=== PATIENT | female | born 1935 | race Caucasian/White ===

== ENCOUNTER → 2016-08-23 | Outpatient (CLI) | payer MEDICARE, OTHER ==
[2016-08-24 08:08] LABS: PROTHROMBIN TIME 45.6 SEC (11.4-15.4)
== END ==
LOC: OD 07:10
PROVIDERS: ATTEND Surgery Vascular Surgery
DX: I48.91 Unspecified atrial fibrillation (principal); Z79.01 Long term (current) use of anticoagulants
CPT/HCPCS: 36415; 85610

== ENCOUNTER 2016-08-26 00:02 | Emergency (ER) | payer MEDICARE, OTHER ==
--- NOTE | 2016-08-26 00:08 | ER Document Report ---
ED ENT - General Stated Complaint: NOSE BLEED Time seen by provider: 00:07 Mode of Arrival: Medic Information source: Patient, Emergency Med Personnel TRAVEL OUTSIDE OF THE [place] IN LAST 30 DAYS: No - HPI Patient complains to provider of: Nose problem Onset: Just prior to arrival Onset/Duration: Sudden Associated symptoms: Nose bleed Similar symptoms previously: No Recently seen / treated by doctor: Yes Notes: Patient is an 81-year-old female who was brought to the emergency room by EMS for complaints of nosebleed that started shortly prior to arrival, patient recently had a mechanical mitral valve replacement at [facility] on 2016, since then she has been on Coumadin 2 mg each evening, this is a new medication for her, she denies any trauma or pain, she does report difficulty breathing since the nosebleed started and she is coughing up a significant amount of blood from her posterior pharynx - Related Data Allergies/Adverse Reactions: No Known Allergies Allergy (Verified 08/26/16 00:34) Past Medical History - General Information source: Patient, Relative - Social History Smoking Status: Never Smoker Family History: Reviewed & Not Pertinent - Past Medical History Cardiac Medical History: Denies: Hx Heart Attack, Hx Hypertension Pulmonary Medical History: Denies: Hx Asthma Neurological Medical History: Denies: Hx Cerebrovascular Accident, Hx Seizures GI Medical History: Denies: Hx Hepatitis, Hx Hiatal Hernia, Hx Ulcer Infectious Medical History: Denies: Hx Hepatitis Past Surgical History: Reports: Hx Hysterectomy. Denies: Hx Mastectomy, Hx Open Heart Surgery, Hx Pacemaker Review of Systems - Review of Systems Constitutional: No symptoms reported EENT: See HPI Cardiovascular: No symptoms reported Respiratory: Short of breath Gastrointestinal: No symptoms reported Genitourinary: No symptoms reported Female Genitourinary: No symptoms reported Musculoskeletal: No symptoms reported Skin: No symptoms reported Hematologic/Lymphatic: No symptoms reported Neurological/Psychological: No symptoms reported -: Yes All other systems reviewed and negative Physical Exam - Vital signs Vitals: Pulse Ox 95 08/26/16 00:06 Interpretation: Normal - General General appearance: Alert In distress: None - HEENT Head: Normocephalic, Atraumatic Eyes: Normal Conjunctiva: Normal Extraocular movements intact: Yes Eyelashes: Normal Pupils: PERRL Nasal: Bloody discharge - Right nare, Epistaxis Mouth/Lips: Normal Mucous membranes: Normal Pharynx: Blood in hypopharynx Neck: Normal - Respiratory Respiratory status: No respiratory distress Chest status: Tender - [place] in place in right anterior chest wall with mild ecchymosis to surrounding area Breath sounds: Normal Chest palpation: Normal - Cardiovascular Rhythm: Regular, Tachycardia Murmur: No Notes: Mechanical valve click audible on auscultation - Abdominal Inspection: Normal Distension: No distension Bowel sounds: Normal Tenderness: Nontender Organomegaly: No organomegaly - Back Back: Normal, Nontender - Extremities General upper extremity: Normal inspection, Nontender, Normal color, Normal ROM , Normal temperature General lower extremity: Normal inspection, Nontender, Normal color, Normal ROM , Normal temperature. No: John's sign - Neurological Neuro grossly intact: Yes Cognition: Normal Orientation: AAOx4 [place] Coma Scale Eye Opening: Spontaneous [place] Coma Scale Verbal: Oriented [place] Coma Scale Motor: Obeys Commands Bala Coma Scale Total: 15 Speech: Normal Motor strength normal: LUE, RUE, LLE, RLE Sensory: Normal - Psychological Associated symptoms: Normal affect, Normal mood - Skin Skin Temperature: Warm Skin Moisture: Dry Skin Color: Normal Course - Re-evaluation Re-evalutation: 08/26/16 01:15 Patient was discussed with cardiothoracic surgeon at [facility], Dr. Santos , who recommends patient hold her Coumadin tomorrow, Sunday, take 1 mg on Sunday and have her INR rechecked on Sunday, from there on out she should alternate 1 mg and 2 mg doses each day, and less INR on Sunday dictates otherwise, patient should follow-up with her local psychometrician, Dr. Anderson on Sunday for further recommendations regarding the INR, I also discussed patient' s family member concern regarding the metoprolol dosing, Dr. Santos recommends patient continue taking the metoprolol once a day as directed on the prescription bottle 08/26/16 04:02 Patient did have a period of slight rebleeding from the right nostril, with blood in the posterior pharynx, the initial Merocel packing was removed and to Merocel packing pads were placed in the right nare, FFP was ordered at this point as well, patient remains slightly hypotensive, otherwise she appears to be doing quite well 08/26/16 04:41 Patient is resting comfortably, bleeding seems to have subsided at this point, she will receive 1 unit of FFP and likely be discharged home after that to follow-up with her psychometrician and primary care provider, this plan was discussed with her daughter who is in agreement - Vital Signs Vital signs: Temp Pulse Resp BP Pulse Ox 18 115/50 L 95 08/26/16 00:34 08/26/16 02:51 08/26/16 02:51 - Laboratory Result Diagrams: 08/26/16 00:06 08/26/16 00:06 Laboratory results interpreted by me: 08/26/16 08/26/16 08/26/16 00:06 00:06 00:06 WBC 16.0 H Hgb 11.7 L Hct 34.4 L RDW 15.5 H Plt Count 501 H Absolute Neutrophils 10.4 H Absolute Monocytes 1.8 H PT 45.9 H APTT 69.3 H Potassium 5.1 H BUN 44 H Creatinine 1.69 H Est GFR ( Amer) 35 L Est GFR (Non-Af Amer) 29 L Glucose 142 H Creatine Kinase 28 L Total Protein 6.0 L - Diagnostic Test Radiology reviewed: Image reviewed, Reports reviewed - EKG Interpretation by Me EKG shows normal: Sinus rhythm Rate: Tachycardia Discharge - Discharge Clinical Impression: Epistaxis, Supratherapeutic INR Condition: Stable Disposition: HOME, SELF-CARE Instructions: Nosebleed Instructions ([facility]), Coumadin (warfarin) ([facility]) Additional Instructions: Hold your warfarin dose on Sunday. On Sunday take 1 mg of warfarin. On Sunday have repeat blood work to check your warfarin levels and follow up with your psychometrician. Nasal packing should be removed in 2-3 days. You can follow -up with an circular shear operator for this, your primary care provider , or return to the emergency room. Return to the emergency room immediately if symptoms worsen or any additional concerns. Forms: Follow-Up Laboratory Testing
[2016-08-26] MEDS ORDERED: ONDANSETRON HCL INJ/PF 4 MG/2 ML SDV IV ONE (00:14)
[2016-08-26] MEDS ORDERED: NORMAL SALINE 1000 ML 500 ML IV PRN (00:15)
[2016-08-26] MEDS ORDERED: ONDANSETRON HCL INJ/PF 4 MG/2 ML SDV ONE (00:16)
[2016-08-26 00:29] LABS: ABSOLUTE BASOPHILS # (AUTO) 0.2 10^3/uL (0.0-0.2); ABSOLUTE EOSINOPHILS # (AUTO) 0.6 10^3/uL (0.0-0.6); ABSOLUTE LYMPHOCYTES (AUTO) 3.2 10^3/uL (0.5-4.7); ABSOLUTE MONOCYTES (AUTO) 1.8 10^3/uL (0.1-1.4); ABSOLUTE NEUT (AUTO) 10.4 10^3/uL (1.7-8.2); BASOPHILS % (AUTO) 0.9 % (0-2); EOSINOPHILS % (AUTO) 3.6 % (0-6); HEMATOCRIT 34.4 % (36.0-47.0); HEMOGLOBIN 11.7 g/dL (12.0-15.5); HGB HCT DIFFERENCE 0.7; LYMPHOCYTES % (AUTO) 19.8 % (13-45); MEAN CORPUSCULAR HEMOGLOBIN 30.7 pg (27.0-33.4); MEAN CORPUSCULAR HGB CONC 33.9 g/dL (32.0-36.0); MEAN CORPUSCULAR VOLUME 91 fl (80-97); RED CELL DISTRIBUTION WIDTH 15.5 % (11.5-14.0); SEGMENTED NEUTROPHILS % (AUTO) 64.7 % (42-78)
[2016-08-26 00:37] LABS: PROTHROMBIN TIME 45.9 SEC (11.4-15.4)
[2016-08-26 00:38] LABS: PARTIAL THROMBOPLASTIN TIME 69.3 SEC (23.5-35.8)
[2016-08-26 00:52] LABS: ALANINE AMINOTRANSFERASE 26 U/L (9-52); ALBUMIN 3.5 g/dL (3.5-5.0); ALKALINE PHOSPHATASE 74 U/L (38-126); ANION GAP 14 (5-19); ASPARTATE AMINO TRANSFERASE 31 U/L (14-36); BILIRUBIN,DIRECT 0.4 mg/dL (0.0-0.4); BILIRUBIN,TOTAL 0.9 mg/dL (0.2-1.3); BLOOD UREA NITROGEN 44 mg/dL (7-20); CARBON DIOXIDE 22 mmol/L (22-30); CHLORIDE 103 mmol/L (98-107); CREATINE KINASE 28 U/L (30-135); CREATININE RESULT 1.69 mg/dL (0.52-1.25); GLUCOSE 142 mg/dL (75-110); POTASSIUM 5.1 mmol/L (3.6-5.0); SODIUM 138.9 mmol/L (137-145)
[2016-08-26 01:09] LABS: CREATINE KINASE MB 0.62 ng/mL (<4.55)
[2016-08-26 01:11] LABS: TROPONIN I 0.077 ng/mL
[2016-08-26] MEDS ORDERED: NORMAL SALINE 250 ML IV PRN (01:59)
[2016-08-26 05:13] LABS: ABSOLUTE BASOPHILS # (AUTO) 0.1 10^3/uL (0.0-0.2); ABSOLUTE EOSINOPHILS # (AUTO) 0.3 10^3/uL (0.0-0.6); ABSOLUTE MONOCYTES (AUTO) 1.5 10^3/uL (0.1-1.4); ABSOLUTE NEUT (AUTO) 15.6 10^3/uL (1.7-8.2); BASOPHILS % (AUTO) 0.5 % (0-2); EOSINOPHILS % (AUTO) 1.4 % (0-6); HEMATOCRIT 35.7 % (36.0-47.0); HEMOGLOBIN 11.5 g/dL (12.0-15.5); HGB HCT DIFFERENCE -1.2; LYMPHOCYTES % (AUTO) 5.7 % (13-45); MEAN CORPUSCULAR HEMOGLOBIN 29.7 pg (27.0-33.4); MEAN CORPUSCULAR HGB CONC 32.3 g/dL (32.0-36.0); MEAN CORPUSCULAR VOLUME 92 fl (80-97); MONOCYTES % (AUTO) 8.3 % (3-13); RED BLOOD COUNT 3.88 10^6/uL (3.72-5.28); SEGMENTED NEUTROPHILS % (AUTO) 84.1 % (42-78); WHITE BLOOD COUNT 18.5 10^3/uL (4.0-10.5)
[2016-08-26 06:09] VITALS: BP 123/59
--- NOTE | 2016-08-26 10:21 | EKG REPORT ---
SEVERITY:- ABNORMAL ECG - SINUS TACHYCARDIA MULTIPLE ATRIAL PREMATURE COMPLEXES PROBABLE LEFT ATRIAL ABNORMALITY LEFT ANTERIOR FASCICULAR BLOCK BORDERLINE R WAVE PROGRESSION, ANTERIOR LEADS, OLD ANTERIOR MT : Confirmed by: Gerardo Anderson MD 26-Aug-2016 10:20:38
== END 2016-08-26 06:13 | disposition home or self-care (01) ==
LOC: ER 00:02
PROC: 2Y41X5Z Packing of Nasal Region using Packing Material (ICD-10-PCS; principal; 2016-08-26)
DX: R04.0 Epistaxis (principal); R79.1 Abnormal coagulation profile; Z95.2 Presence of prosthetic heart valve; Z79.02 Long term (current) use of antithrombotics/antiplatelets; Z90.710 Acquired absence of both cervix and uterus
CPT/HCPCS: 30901; 93005; 99284; 96374; 86900; 86901; 36415; 82553; 36430; 82550; 85025; 85610; 85730; 80053; 84484; 71010; 93010; P9017; J2405; J7030

== ENCOUNTER 2016-08-27 23:45 | Emergency (ER) | payer MEDICARE, OTHER ==
--- NOTE | 2016-08-28 01:40 | ER Document Report ---
ED ENT - General Chief Complaint: Nose Bleed Stated Complaint: NOSE BLEED Mode of Arrival: Medic Information source: Patient, Relative Notes: This is an 81-year-old female who presents for evaluation of recurrent epistaxis. She was seen 2 days ago with right sided epistaxis and was treated with Merocel packing. Of note she is status post mitral valve replacement at [facility] on 08/11/2016 and is currently on Coumadin 2 mg by mouth daily. After bleeding was controlled 2 days ago, the Coumadin dose was held for one day and she took a half dose today with plans to resume her full dose tomorrow. However tonight she had recurrent bleeding this time from her left nostril. EMS was called. Upon arrival the epistaxis has resolved spontaneously. Patient denies any pain but states that she overall just feels weak. TRAVEL OUTSIDE OF THE U.S. IN LAST 30 DAYS: No - Related Data Allergies/Adverse Reactions: No Known Allergies Allergy (Verified 08/26/16 00:34) Past Medical History - General Information source: [facility] Records - Social History Smoking Status: Unknown if Ever Smoked Family History: Reviewed & Not Pertinent - Past Medical History Cardiac Medical History: Reports: Hx Atrial Fibrillation Denies: Hx Heart Attack, Hx Hypertension Pulmonary Medical History: Denies: Hx Asthma Neurological Medical History: Denies: Hx Cerebrovascular Accident, Hx Seizures Renal/ Medical History: Denies: Hx Peritoneal Dialysis GI Medical History: Denies: Hx Hepatitis, Hx Hiatal Hernia, Hx Ulcer Infectious Medical History: Denies: Hx Hepatitis Past Surgical History: Reports: Hx Hysterectomy. Denies: Hx Mastectomy, Hx Open Heart Surgery, Hx Pacemaker Review of Systems - Review of Systems Constitutional: Malaise. denies: Chills, Fever EENT: See HPI Cardiovascular: denies: Chest pain Respiratory: No symptoms reported. denies: Cough, Hurts to breathe, Short of breath Gastrointestinal: No symptoms reported Genitourinary: No symptoms reported Female Genitourinary: No symptoms reported Skin: Other - bruises since starting coumadin Neurological/Psychological: No symptoms reported Physical Exam - Vital signs Vitals: Temp 98.2 F 08/28/16 00:20 - Notes Notes: PHYSICAL EXAMINATION: GENERAL: Frail elderly female who is pleasant and conversant. No acute distress. HEAD: Atraumatic, normocephalic. EYES: Pupils equal round and reactive to light, extraocular movements intact, sclera anicteric, conjunctiva are normal. ENT: , oropharynx clear without exudates. Moist mucous membranes. No epistaxis currently. Right Nare with packing in place. Dried blood noted at left Nare but no active bleeding. NECK: Normal range of motion, supple without lymphadenopathy LUNGS: Breath sounds clear to auscultation bilaterally and equal. No wheezes rales or rhonchi. HEART: Tachycardic rate without murmurs appreciated ABDOMEN: Soft, nontender, normoactive bowel sounds. No guarding, no rebound. No masses appreciated. EXTREMITIES: Normal range of motion NEUROLOGICAL: Cranial nerves grossly intact. No gross focal motor or sensory deficits appreciated. PSYCH: Normal mood, normal affect. SKIN: Warm, Dry, multiple areas of ecchymosis on her upper extremities. Course - Re-evaluation Re-evalutation: 08/28/16 04:16 Case discussed with patient's cardiothoracic surgeon at [facility]. Given patient's significant drop in H&H, new O2 requirement, and recurrent epistaxis on Coumadin, will transfer to [facility] for further care. Dr. Santos accepts pt in transfer. Discussed plan with patient and family, all questions answered and they are in agreement with transfer. - Vital Signs Vital signs: Temp Pulse Resp BP Pulse Ox 98.2 F 08/28/16 00:20 - Laboratory Result Diagrams: 08/28/16 03:01 08/28/16 01:38 Laboratory results interpreted by me: 08/28/16 08/28/16 08/28/16 01:38 02:42 03:01 RBC 2.68 L Hgb 8.4 L D Hct 24.3 L RDW 15.7 H Seg Neutrophils % 81.5 H Lymphocytes % 7.6 L Absolute Neutrophils 8.6 H PT 28.9 H BUN 50 H Creatinine 1.52 H Est GFR ( Amer) 40 L Est GFR (Non-Af Amer) 33 L - EKG Interpretation by Me Additional EKG results interpreted by me: 08/28/16 04:18 EKG at 0212 demonstrates sinus tachycardia with a rate of 110. There is a left axis deviation. No significant change from prior. Discharge - Discharge Clinical Impression: Epistaxis, recurrent, Bleeding on Coumadin, Symptomatic anemia, Requires supplemental oxygen Condition: Fair Disposition: [place]
[2016-08-28 02:06] LABS: ANION GAP 15 (5-19); BLOOD UREA NITROGEN 50 mg/dL (7-20); CALCIUM 9.2 mg/dL (8.4-10.2); CARBON DIOXIDE 23 mmol/L (22-30); CHLORIDE 104 mmol/L (98-107); CREATININE RESULT 1.52 mg/dL (0.52-1.25); GLUCOSE 107 mg/dL (75-110); POTASSIUM 4.5 mmol/L (3.6-5.0)
[2016-08-28 03:05] LABS: ABSOLUTE BASOPHILS # (AUTO) 0.1 10^3/uL (0.0-0.2); ABSOLUTE EOSINOPHILS # (AUTO) 0.3 10^3/uL (0.0-0.6); ABSOLUTE LYMPHOCYTES (AUTO) 0.8 10^3/uL (0.5-4.7); ABSOLUTE MONOCYTES (AUTO) 0.7 10^3/uL (0.1-1.4); ABSOLUTE NEUT (AUTO) 8.6 10^3/uL (1.7-8.2); BASOPHILS % (AUTO) 1.2 % (0-2); EOSINOPHILS % (AUTO) 2.7 % (0-6); HEMATOCRIT 24.3 % (36.0-47.0); HEMOGLOBIN 8.4 g/dL (12.0-15.5); HGB HCT DIFFERENCE 0.9; LYMPHOCYTES % (AUTO) 7.6 % (13-45); MEAN CORPUSCULAR HEMOGLOBIN 31.4 pg (27.0-33.4); MEAN CORPUSCULAR HGB CONC 34.6 g/dL (32.0-36.0); MEAN CORPUSCULAR VOLUME 91 fl (80-97); RED BLOOD COUNT 2.68 10^6/uL (3.72-5.28); RED CELL DISTRIBUTION WIDTH 15.7 % (11.5-14.0); SEGMENTED NEUTROPHILS % (AUTO) 81.5 % (42-78); WHITE BLOOD COUNT 10.5 10^3/uL (4.0-10.5)
[2016-08-28 03:06] LABS: PROTHROMBIN TIME 28.9 SEC (11.4-15.4)
[2016-08-28] MEDS ORDERED: NORMAL SALINE 250 ML IV PRN (03:53)
[2016-08-28 09:08] VITALS: BP 136/59
--- NOTE | 2016-08-28 16:03 | EKG REPORT ---
SEVERITY:- ABNORMAL ECG - SINUS TACHYCARDIA WITH IRREGULAR RATE 79-138 PROBABLE LEFT ATRIAL ABNORMALITY LEFT AXIS DEVIATION ABNRM R PROG, CONSIDER ASMI OR LEAD PLACEMENT : Confirmed by: Cipriano Franco 28-Aug-2016 16:02:54
== END 2016-08-28 09:34 | disposition short-term general hospital (02) ==
LOC: ER 23:45
DX: R04.0 Epistaxis (principal); R58 Hemorrhage, not elsewhere classified; D64.9 Anemia, unspecified; R00.0 Tachycardia, unspecified; R53.1 Weakness; R53.81 Other malaise; Z95.2 Presence of prosthetic heart valve; Z79.01 Long term (current) use of anticoagulants; Z99.81 Dependence on supplemental oxygen
CPT/HCPCS: 93005; 99285; 86900; 86901; 36415; 36430; 86850; 85025; 85610; 80048; 86920; 71020; 93010; P9016

== ENCOUNTER → 2016-09-11 | Outpatient (CLI) | payer MEDICARE, OTHER | LOC: OD 07:12 | DX: I48.91 Unspecified atrial fibrillation (principal) | CPT/HCPCS: 36415; 85610 ==

== ENCOUNTER → 2016-09-13 | Outpatient (CLI) | payer MEDICARE, OTHER ==
[2016-09-13 08:12] LABS: PROTHROMBIN TIME 30.1 SEC (11.4-15.4)
== END ==
LOC: OD 07:14
PROVIDERS: ATTEND Physician Assistant Medical
DX: I48.91 Unspecified atrial fibrillation (principal)
CPT/HCPCS: 85610

== ENCOUNTER → 2016-09-18 | Outpatient (CLI) | payer MEDICARE, OTHER ==
[2016-09-18 08:43] LABS: PROTHROMBIN TIME 18.5 SEC (11.4-15.4)
== END ==
LOC: OD 07:12
PROVIDERS: ATTEND Physician Assistant Medical
DX: I48.91 Unspecified atrial fibrillation (principal)
CPT/HCPCS: 36415; 85610

== ENCOUNTER 2016-09-26 13:05 | Emergency (ER) | payer MEDICARE, OTHER ==
--- NOTE | 2016-09-26 13:49 | ER Document Report ---
ED Medical Screen (RME) - General Chief Complaint: Breathing Difficulty Stated Complaint: FATIGUE Mode of Arrival: Wheelchair Information source: Patient Notes: 81-year-old female who is 6 weeks post bioprosthetic mitral valve replacement at [facility] who has had anemia in the past requiring transfusions presents with complaints of shortness of breath hypotension and rectal bleeding I have greeted and performed a rapid initial assessment of this patient. A comprehensive ED assessment and evaluation of the patient, analysis of test results and completion of the medical decision making process will be conducted by additional ED providers. PHYSICAL EXAMINATION: GENERAL: Ill-appearing female mild respiratory distress. HEAD: Atraumatic, normocephalic. EYES: Pupils equal round extraocular movements intact, conjunctiva are normal. ENT: Nares patent NECK: Normal range of motion LUNGS: Tachypneic Musculoskeletal: Normal range of motion NEUROLOGICAL: Normal speech, PSYCH: Normal mood, normal affect. SKIN: Pale TRAVEL OUTSIDE OF THE U.S. IN LAST 30 DAYS: No - Related Data Allergies/Adverse Reactions: No Known Allergies Allergy (Verified 09/26/16 13:10) Past Medical History - Past Medical History Cardiac Medical History: Reports: Hx Atrial Fibrillation Denies: Hx Heart Attack, Hx Hypertension Pulmonary Medical History: Denies: Hx Asthma Neurological Medical History: Denies: Hx Cerebrovascular Accident, Hx Seizures Renal/ Medical History: Denies: Hx Peritoneal Dialysis GI Medical History: Denies: Hx Hepatitis, Hx Hiatal Hernia, Hx Ulcer Infectious Medical History: Denies: Hx Hepatitis Past Surgical History: Reports: Hx Hysterectomy. Denies: Hx Mastectomy, Hx Open Heart Surgery, Hx Pacemaker Physical Exam - Vital signs Vitals: Temp Pulse Resp BP Pulse Ox 97.8 F 97 28 H 121/69 100 09/26/16 13:13 09/26/16 13:13 09/26/16 13:13 09/26/16 13:13 09/26/16 13:13 Course - Vital Signs Vital signs: Temp Pulse Resp BP Pulse Ox 97.8 F 97 28 H 121/69 100 09/26/16 13:13 09/26/16 13:13 09/26/16 13:13 09/26/16 13:13 09/26/16 13:13
--- NOTE | 2016-09-26 14:21 | ER Document Report ---
ED General - General Chief Complaint: Breathing Difficulty Stated Complaint: FATIGUE Time seen by provider: 14:00 Mode of Arrival: Wheelchair Information source: Patient TRAVEL OUTSIDE OF THE [place].S. IN LAST 30 DAYS: No - HPI Notes: 81-year-old female 6 weeks status post bioprosthetic mitral valve replacement up at [facility] presents with report of gradually progressive dyspnea that she's had since her surgery. The patient was seen 1 month ago with a nosebleed and required transfusion, but she was taken off of aspirin following this and is doing well. Patient is currently anticoagulated. Patient denies any chest pain. She states she has no increase in her lower extremity edema. She reports more of a dyspnea on exertion. She denies any obvious orthopnea. She previously was on oxygen prior to her mitral valve replacement surgery. She previously was on inhalers but these were discontinued by her office support specialist. - Related Data Allergies/Adverse Reactions: No Known Allergies Allergy (Verified 09/26/16 13:10) Past Medical History - General Information source: Patient - Social History Smoking Status: Former Smoker Cigarette use (# per day): No Frequency of alcohol use: None Drug Abuse: None Family History: Reviewed & Not Pertinent Patient has suicidal ideation: No Patient has homicidal ideation: No - Past Medical History Cardiac Medical History: Reports: Hx Atrial Fibrillation Denies: Hx Heart Attack, Hx Hypertension Pulmonary Medical History: Denies: Hx Asthma Neurological Medical History: Denies: Hx Cerebrovascular Accident, Hx Seizures Renal/ Medical History: Denies: Hx Peritoneal Dialysis GI Medical History: Denies: Hx Hepatitis, Hx Hiatal Hernia, Hx Ulcer Infectious Medical History: Denies: Hx Hepatitis Past Surgical History: Reports: Hx Hysterectomy. Denies: Hx Mastectomy, Hx Open Heart Surgery, Hx Pacemaker Review of Systems - Review of Systems Notes: REVIEW OF SYSTEMS: CONSTITUTIONAL : Denies fever, chills, or sweats. Denies recent illness. EENT: Denies eye, ear, throat, or mouth pain or symptoms. Denies nasal or sinus congestion or discharge. Denies throat, tongue, or mouth swelling or difficulty swallowing. No recent nosebleed. CARDIOVASCULAR: Denies chest pain. Denies palpitations or racing or irregular heart beat. Reports unchanged mild edema. RESPIRATORY: Denies cough, cold, or chest congestion. Denies wheezing. GASTROINTESTINAL: Denies abdominal pain or distention. Denies nausea, vomiting , or diarrhea. Denies blood in vomitus, stools, or per rectum. Denies black, tarry stools. Denies constipation. GENITOURINARY: Denies difficulty urinating, painful urination, burning, frequency, blood in urine, or discharge. FEMALE GENITOURINARY: Denies vaginal bleeding, heavy or abnormal periods, irregular periods. Denies vaginal discharge or odor. MUSCULOSKELETAL: Denies back or neck pain or stiffness. Denies joint pain or swelling. SKIN: Denies rash, lesions or sores. HEMATOLOGIC : Denies easy bruising or bleeding. LYMPHATIC: Denies swollen, enlarged glands. NEUROLOGICAL: Denies confusion or altered mental status. Denies passing out or loss of consciousness. Patient reports general malaise sensation of lightheadedness. Denies headache. Denies weakness or paralysis or loss of use of either side. Denies problems with gait or speech. Denies sensory loss, numbness, or tingling. Denies seizures. PSYCHIATRIC: Denies anxiety or stress. Denies depression, suicidal ideation, or homicidal ideation. ALL OTHER SYSTEMS REVIEWED AND NEGATIVE. Dictation was performed using [employer] voice recognition software Physical Exam - Vital signs Vitals: Temp Pulse Resp BP Pulse Ox 97.8 F 97 28 H 121/69 100 09/26/16 13:13 09/26/16 13:13 09/26/16 13:13 09/26/16 13:13 09/26/16 13:13 - Notes Notes: PHYSICAL EXAMINATION: GENERAL: Well-appearing, well-nourished and in no acute distress. HEAD: Atraumatic, normocephalic. EYES: Pupils equal round and reactive to light, extraocular movements intact, conjunctiva are normal. ENT: Nares patent, oropharynx clear without exudates. Moist mucous membranes. NECK: Normal range of motion, supple without lymphadenopathy LUNGS: Coarse breath sounds bilaterally no significant wheezes patient has scant rales to both bases. HEART: Regular rate and rhythm with 1/6 LUCIE over apex and into the left axillary region. ABDOMEN: Soft, nontender, nondistended abdomen. No guarding, no rebound. No masses appreciated. Female : deferred Musculoskeletal: Normal range of motion. 1+ lower extremity edema which patient states is chronic. No cyanosis. NEUROLOGICAL: Cranial nerves grossly intact. Normal speech, normal gait. Normal sensory, motor exams PSYCH: Normal mood, normal affect. SKIN: Warm, Dry, normal turgor, no rashes or lesions noted. Course - Re-evaluation Re-evalutation: 09/26/16 17:20 Patient was ambulatory and had an oxygen saturation that only went down to 95%. The patient would at times state that she was dyspneic and would be somewhat, but at other times would have a respiratory rate of 18 without any laboring and would still have an O2 sat that ranged from 98-100% on room air. The patient did have previous pulmonary function studies performed which showed normal FEV1 and FVC, the patient was taken off of any inhalers. The patient was previously on oxygen prior to her mitral valve replacement, but she was taken off of oxygen after the surgery and does not qualify for oxygen today. The patient's minimal renal insufficiency is unchanged. The patient's previous anemia has completely resolved and there is no suggestion for any blood loss. No obvious evidence for congestive heart failure given the findings. I see no obvious evidence for the mitral valve failing the patient, but she may benefit from a repeat cardiac echo. Discussed with patient's regular practitioner Dr. Joy, who agreed to see the patient in follow-up. 09/26/16 17:21 - Vital Signs Vital signs: Temp Pulse Resp BP Pulse Ox 97.8 F 97 18 132/74 H 95 09/26/16 13:13 09/26/16 13:13 09/26/16 17:13 09/26/16 17:13 09/26/16 17:13 - Laboratory Result Diagrams: 09/26/16 14:36 09/26/16 14:36 Laboratory results interpreted by me: 09/26/16 09/26/16 09/26/16 14:36 14:36 14:36 Hct 35.3 L RDW 15.7 H PT 21.7 H BUN 23 H Creatinine 1.66 H Est GFR ( Amer) 36 L Est GFR (Non-Af Amer) 30 L Glucose 129 H Creatine Kinase 22 L NT-Pro-B Natriuret Pep Ur Leukocyte Esterase 09/26/16 09/26/16 14:36 16:21 Hct RDW PT BUN Creatinine Est GFR ( Amer) Est GFR (Non-Af Amer) Glucose Creatine Kinase NT-Pro-B Natriuret Pep 1130 H Ur Leukocyte Esterase TRACE H - EKG Interpretation by [place] EKG shows normal: Sinus rhythm Additional EKG results interpreted by me: 09/26/16 14:26 EKG as interpreted by me showed normal sinus rhythm heart rate of 96 with no gross evidence for acute [place] or ischemia identified. The patient has late R- wave progression with left axis deviation, but there is no change from previous EKG reviewed from 08/28/16. Discharge - Discharge Clinical Impression: Pleural effusion, Chronic renal insufficiency, stage II (mild) Dyspnea Qualifiers: Dyspnea type: dyspnea on exertion Qualified Code(s): R06.09 - Other forms of dyspnea Condition: Stable Disposition: HOME, SELF-CARE Instructions: Dyspnea, Nonspecific ([facility]) Referrals: KI JOY MD [EMERITUS] - Follow up as needed SHAHID GARCIA MD [ACTIVE STAFF] - Follow up as needed
[2016-09-26 14:50] LABS: ABSOLUTE BASOPHILS # (AUTO) 0.1 10^3/uL (0.0-0.2); ABSOLUTE EOSINOPHILS # (AUTO) 0.4 10^3/uL (0.0-0.6); ABSOLUTE LYMPHOCYTES (AUTO) 1.3 10^3/uL (0.5-4.7); ABSOLUTE MONOCYTES (AUTO) 0.8 10^3/uL (0.1-1.4); ABSOLUTE NEUT (AUTO) 4.6 10^3/uL (1.7-8.2); BASOPHILS % (AUTO) 1.1 % (0-2); EOSINOPHILS % (AUTO) 5.2 % (0-6); HEMATOCRIT 35.3 % (36.0-47.0); HGB HCT DIFFERENCE 0.7; LYMPHOCYTES % (AUTO) 18.7 % (13-45); MEAN CORPUSCULAR HEMOGLOBIN 30.2 pg (27.0-33.4); MEAN CORPUSCULAR HGB CONC 33.9 g/dL (32.0-36.0); MEAN CORPUSCULAR VOLUME 89 fl (80-97); MONOCYTES % (AUTO) 11.1 % (3-13); RED BLOOD COUNT 3.96 10^6/uL (3.72-5.28); RED CELL DISTRIBUTION WIDTH 15.7 % (11.5-14.0); SEGMENTED NEUTROPHILS % (AUTO) 63.9 % (42-78); WHITE BLOOD COUNT 7.2 10^3/uL (4.0-10.5)
[2016-09-26 15:02] LABS: PROTHROMBIN TIME 21.7 SEC (11.4-15.4)
[2016-09-26 15:09] LABS: ALANINE AMINOTRANSFERASE 15 U/L (9-52); ALBUMIN 3.8 g/dL (3.5-5.0); ALKALINE PHOSPHATASE 80 U/L (38-126); ANION GAP 13 (5-19); ASPARTATE AMINO TRANSFERASE 29 U/L (14-36); BILIRUBIN,DIRECT 0.2 mg/dL (0.0-0.4); BILIRUBIN,TOTAL 0.6 mg/dL (0.2-1.3); BLOOD UREA NITROGEN 23 mg/dL (7-20); CALCIUM 9.2 mg/dL (8.4-10.2); CARBON DIOXIDE 25 mmol/L (22-30); CHLORIDE 103 mmol/L (98-107); CREATINE KINASE 22 U/L (30-135); CREATININE RESULT 1.66 mg/dL (0.52-1.25); GLUCOSE 129 mg/dL (75-110); POTASSIUM 3.8 mmol/L (3.6-5.0); TOTAL PROTEIN 6.7 g/dL (6.3-8.2)
[2016-09-26 15:21] LABS: CREATINE KINASE MB 0.35 ng/mL (<4.55)
[2016-09-26 15:22] LABS: TROPONIN I < 0.012 ng/mL
[2016-09-26 16:44] LABS: APPEARANCE,URINE SLIGHTLY-CLOUDY; BILIRUBIN,URINE NEGATIVE (NEGATIVE); GLUCOSE, URINE NEGATIVE (NEGATIVE); KETONES,URINE NEGATIVE (NEGATIVE); LEUKOCYTE ESTERASE,URINE TRACE (NEGATIVE); NITRITE,URINE NEGATIVE (NEGATIVE); PROTEIN,URINE NEGATIVE (NEGATIVE); URINE SPECIFIC GRAVITY 1.011; UROBILINOGEN,URINE NEGATIVE mg/dL (<2.0)
[2016-09-26 17:15] VITALS: BP 132/74
--- NOTE | 2016-09-26 22:18 | EKG REPORT ---
SEVERITY:- BORDERLINE ECG - SINUS RHYTHM ATRIAL PREMATURE COMPLEX LEFT AXIS DEVIATION CONSIDER ANTERIOR INFARCT : Confirmed by: Cipriano Franco 26-Sep-2016 22:17:28
== END 2016-09-26 17:35 | disposition home or self-care (01) ==
LOC: ER 13:05
DX: N18.2 Chronic kidney disease, stage 2 (mild) (principal); R06.09 Other forms of dyspnea; J90 Pleural effusion, not elsewhere classified; R42 Dizziness and giddiness; R53.81 Other malaise; R60.9 Edema, unspecified; Z95.2 Presence of prosthetic heart valve; Z87.891 Personal history of nicotine dependence
CPT/HCPCS: 36415; 71020; 80053; 81001; 82550; 82553; 83735; 83880; 84484; 85025; 85610; 86850; 86900; 86901; 93005; 93010; 99285

== ENCOUNTER → 2016-09-26 | Outpatient (CLI) | payer MEDICARE, OTHER ==
[2016-09-26 08:30] LABS: PROTHROMBIN TIME 20.8 SEC (11.4-15.4)
== END ==
LOC: OD 07:05
PROVIDERS: ATTEND Physician Assistant Medical
DX: I48.91 Unspecified atrial fibrillation (principal)
CPT/HCPCS: 36415; 85610

== ENCOUNTER → 2016-10-06 | Outpatient (CLI) | payer MEDICARE, OTHER ==
[2016-10-06 08:18] LABS: PROTHROMBIN TIME 36.3 SEC (11.4-15.4)
== END ==
LOC: OD 07:07
PROVIDERS: ATTEND Internal Medicine Cardiovascular Disease
DX: Z79.01 Long term (current) use of anticoagulants (principal)
CPT/HCPCS: 36415; 85610

== ENCOUNTER → 2016-10-13 | Outpatient (CLI) | payer MEDICARE, OTHER ==
[2016-10-13 08:27] LABS: PROTHROMBIN TIME 31.3 SEC (11.4-15.4)
== END ==
LOC: OD 07:06
PROVIDERS: ATTEND Internal Medicine Cardiovascular Disease
DX: Z79.01 Long term (current) use of anticoagulants (principal); Z51.81 Encounter for therapeutic drug level monitoring
CPT/HCPCS: 36415; 85610

== ENCOUNTER → 2016-10-18 | Outpatient (CLI) | payer MEDICARE, OTHER ==
[2016-10-19 15:16] LABS: PROTHROMBIN TIME 27.8 SEC (11.4-15.4)
== END ==
LOC: OD 07:07
PROVIDERS: ATTEND Internal Medicine Cardiovascular Disease
DX: Z79.01 Long term (current) use of anticoagulants (principal); Z51.81 Encounter for therapeutic drug level monitoring
CPT/HCPCS: 36415; 85610

== ENCOUNTER → 2016-10-25 | Outpatient (CLI) | payer MEDICARE, OTHER ==
[2016-10-25 08:08] LABS: HEMATOCRIT 35.6 % (36.0-47.0); HEMOGLOBIN 11.9 g/dL (12.0-15.5); HGB HCT DIFFERENCE 0.1; MEAN CORPUSCULAR HEMOGLOBIN 29.7 pg (27.0-33.4); MEAN CORPUSCULAR HGB CONC 33.4 g/dL (32.0-36.0); MEAN CORPUSCULAR VOLUME 89 fl (80-97); RED CELL DISTRIBUTION WIDTH 15.4 % (11.5-14.0)
[2016-10-25 08:11] LABS: PROTHROMBIN TIME 24.4 SEC (11.4-15.4)
== END ==
LOC: OD 07:07
PROVIDERS: ATTEND Internal Medicine Cardiovascular Disease
DX: I48.0 Paroxysmal atrial fibrillation (principal); D64.9 Anemia, unspecified; Z79.01 Long term (current) use of anticoagulants
CPT/HCPCS: 36415; 85027; 85610

== ENCOUNTER → 2016-11-01 | Outpatient (CLI) | payer MEDICARE, OTHER ==
[2016-11-01 08:40] LABS: PROTHROMBIN TIME 24.8 SEC (11.4-15.4)
== END ==
LOC: OD 07:05
PROVIDERS: ATTEND Internal Medicine Cardiovascular Disease
DX: I48.91 Unspecified atrial fibrillation (principal); Z79.01 Long term (current) use of anticoagulants
CPT/HCPCS: 36415; 85610

== ENCOUNTER → 2016-11-21 | Outpatient (CLI) | payer MEDICARE, OTHER ==
[2016-11-21 08:22] LABS: PROTHROMBIN TIME 30.2 SEC (11.4-15.4)
== END ==
LOC: OD 07:23
PROVIDERS: ATTEND Internal Medicine Cardiovascular Disease
DX: Z79.01 Long term (current) use of anticoagulants (principal); Z51.81 Encounter for therapeutic drug level monitoring
CPT/HCPCS: 36415; 85610

== ENCOUNTER → 2016-12-06 | Outpatient (CLI) | payer MEDICARE, OTHER ==
[2016-12-06 08:11] LABS: PROTHROMBIN TIME 25.1 SEC (11.4-15.4)
[2016-12-06 08:30] LABS: ANION GAP 9 (5-19); BLOOD UREA NITROGEN 32 mg/dL (7-20); CALCIUM 9.2 mg/dL (8.4-10.2); CARBON DIOXIDE 25 mmol/L (22-30); CHLORIDE 105 mmol/L (98-107); CREATININE RESULT 1.68 mg/dL (0.52-1.25); GLUCOSE 144 mg/dL (75-110); SODIUM 139.3 mmol/L (137-145)
== END ==
LOC: OD 07:10
PROVIDERS: ATTEND Internal Medicine Cardiovascular Disease
DX: R60.0 Localized edema (principal); Z79.01 Long term (current) use of anticoagulants
CPT/HCPCS: 36415; 80048; 83880; 85610

== ENCOUNTER → 2016-12-12 | Outpatient (CLI) | payer MEDICARE, OTHER ==
--- NOTE | 2016-12-12 09:41 | WOMENS IMAGING REPORT ---
EXAM DESCRIPTION: BILAT SCREENING MAMMO W/CAD COMPLETED DATE/TIME: 12/12/2016 8:29 am REASON FOR STUDY: Z12.31, ROUTINE SCREENING MAMMO Z12.31 ENCNTR SCREEN MAMMOGRAM FOR MALIGNANT NEOP LASM OF LIA COMPARISON: 12/07/2014. TECHNIQUE: Standard craniocaudal and mediolateral oblique views of each breast recorded using digita l acquisition. LIMITATIONS: None. FINDINGS: No masses, calcifications or architectural distortion. No areas of suspicion. Read with the assistance of CAD. .[facility] - R2 Cenova Version 1.3 .[facility] - R2 Cenova Version 1.3 .[facility] Imaging - R2 Cenova Version 2.4 .[facility] [place] - R2 Cenova Version 2.4 .[facility] - R2 Web Support Engineer Version 9.2 IMPRESSION: NORMAL MAMMOGRAM. BIRADS 1. BREAST DENSITY: c. The breasts are heterogeneously dense, which may obscure small masses. BIRAD: 1 NEGATIVE RECOMMENDATION: ROUTINE SCREENING COMMENT: The patient has been notified of the results by letter per MQSA requirements. Additional no tification policies are in place for contacting patient with suspicious or incomplete findings. Quality ID #[id number]: The [employer] recommends an annual screening mammogram for women aged 40 years or over. This facility utilizes a reminder system to ensure that all patients receive reminder letters, and/or direct phone calls for appointments. This includes reminders for routine scr eening mammograms, diagnostic mammograms, or other Breast Imaging Interventions when appropriate. Th is patient will be placed in the appropriate reminder system. The [employer] (A[employer]) has developed recommendations for screening MRI of the breast s in certain patient populations, to be used in conjunction with mammography. Breast MRI surveillanc e may be appropriate for women with more than 20% lifetime risk of developing breast cancer as deter mined by genetic testing, significant family history of the disease, or history of mantle radiation f or Hodgkins Disease. ACR Practice Guidelines 2008. TECHNICAL DOCUMENTATION: FINDING NUMBER: (1) ASSESSMENT: (1) JOB ID: [id number] [employer]- All Rights Reserved
== END ==
LOC: WI 06:52
PROVIDERS: ATTEND Family Medicine
DX: Z12.31 Encounter for screening mammogram for malignant neoplasm of breast (principal)
CPT/HCPCS: 77067; G0202

== ENCOUNTER → 2016-12-19 | Outpatient (CLI) | payer MEDICARE, OTHER ==
[2016-12-19 08:03] LABS: PROTHROMBIN TIME 27.9 SEC (11.4-15.4)
== END ==
LOC: OD 07:09
PROVIDERS: ATTEND Internal Medicine Cardiovascular Disease
DX: Z79.01 Long term (current) use of anticoagulants (principal)
CPT/HCPCS: 36415; 85610

== ENCOUNTER → 2017-01-02 | Outpatient (CLI) | payer MEDICARE, OTHER ==
[2017-01-02 08:29] LABS: PROTHROMBIN TIME 24.7 SEC (11.4-15.4)
== END ==
LOC: OD 07:02
PROVIDERS: ATTEND Internal Medicine Cardiovascular Disease
DX: Z79.01 Long term (current) use of anticoagulants (principal)
CPT/HCPCS: 36415; 85610

== ENCOUNTER → 2017-01-16 | Outpatient (CLI) | payer MEDICARE, OTHER ==
[2017-01-16 08:24] LABS: PROTHROMBIN TIME 31.7 SEC (11.4-15.4)
[2017-01-17 12:55] LABS: ANION GAP 11 (5-19); BLOOD UREA NITROGEN 23 mg/dL (7-20); CALCIUM 9.2 mg/dL (8.4-10.2); CARBON DIOXIDE 24 mmol/L (22-30); CHLORIDE 102 mmol/L (98-107); CREATININE RESULT 1.51 mg/dL (0.52-1.25); GLUCOSE 88 mg/dL (75-110); POTASSIUM 4.1 mmol/L (3.6-5.0); SODIUM 137.4 mmol/L (137-145)
== END ==
LOC: OD 07:29
PROVIDERS: ATTEND Internal Medicine Cardiovascular Disease
DX: I48.0 Paroxysmal atrial fibrillation (principal); Z79.01 Long term (current) use of anticoagulants
CPT/HCPCS: 36415; 80048; 85610

== ENCOUNTER → 2017-01-29 | Outpatient (CLI) | payer MEDICARE, OTHER ==
[2017-01-29 08:48] LABS: PROTHROMBIN TIME 23.5 SEC (11.4-15.4)
== END ==
LOC: OD 07:12
PROVIDERS: ATTEND Internal Medicine Cardiovascular Disease
DX: Z79.01 Long term (current) use of anticoagulants (principal)
CPT/HCPCS: 36415; 85610

== ENCOUNTER → 2017-02-12 | Outpatient (CLI) | payer MEDICARE, OTHER ==
[2017-02-12 08:42] LABS: PROTHROMBIN TIME 20.9 SEC (11.4-15.4)
== END ==
LOC: OD 07:12
PROVIDERS: ATTEND Internal Medicine Cardiovascular Disease
DX: Z79.01 Long term (current) use of anticoagulants (principal)
CPT/HCPCS: 36415; 85610

== ENCOUNTER → 2017-02-26 | Outpatient (CLI) | payer MEDICARE, OTHER ==
[2017-02-26 08:42] LABS: PROTHROMBIN TIME 28.6 SEC (11.4-15.4)
== END ==
LOC: OD 07:06
PROVIDERS: ATTEND Internal Medicine Cardiovascular Disease
DX: Z79.01 Long term (current) use of anticoagulants (principal)
CPT/HCPCS: 36415; 85610

== ENCOUNTER → 2017-03-05 | Outpatient (CLI) | payer MEDICARE, OTHER ==
[2017-03-05 08:29] LABS: ANION GAP 8 (5-19); BLOOD UREA NITROGEN 25 mg/dL (7-20); CALCIUM 9.2 mg/dL (8.4-10.2); CARBON DIOXIDE 27 mmol/L (22-30); CHLORIDE 108 mmol/L (98-107); CREATININE RESULT 1.61 mg/dL (0.52-1.25); GLUCOSE 100 mg/dL (75-110); POTASSIUM 4.3 mmol/L (3.6-5.0); SODIUM 142.8 mmol/L (137-145)
== END ==
LOC: OD 07:17
PROVIDERS: ATTEND Internal Medicine Cardiovascular Disease
DX: I48.0 Paroxysmal atrial fibrillation (principal); N18.3 Chronic kidney disease, stage 3 (moderate); Z79.01 Long term (current) use of anticoagulants; Z79.899 Other long term (current) drug therapy
CPT/HCPCS: 36415; 80048

== ENCOUNTER → 2017-03-06 | Outpatient (CLI) | payer MEDICARE, OTHER | LOC: OD 12:21 | PROVIDERS: ATTEND Internal Medicine Cardiovascular Disease | DX: R06.02 Shortness of breath (principal) | CPT/HCPCS: 36415; 83880 ==

== ENCOUNTER → 2017-03-14 | Outpatient (CLI) | payer MEDICARE, OTHER ==
[2017-03-14 08:32] LABS: PROTHROMBIN TIME 27.2 SEC (11.4-15.4)
== END ==
LOC: OD 07:06
PROVIDERS: ATTEND Internal Medicine Cardiovascular Disease
DX: I48.0 Paroxysmal atrial fibrillation (principal); Z79.01 Long term (current) use of anticoagulants
CPT/HCPCS: 36415; 85610

== ENCOUNTER → 2017-04-18 | Outpatient (CLI) | payer MEDICARE, OTHER ==
[2017-04-18 08:05] LABS: PROTHROMBIN TIME 29.6 SEC (11.4-15.4)
== END ==
LOC: OD 07:10
PROVIDERS: ATTEND Internal Medicine Cardiovascular Disease
DX: I48.0 Paroxysmal atrial fibrillation (principal); Z79.01 Long term (current) use of anticoagulants
CPT/HCPCS: 36415; 85610

== ENCOUNTER → 2017-04-30 | Outpatient (CLI) | payer MEDICARE, OTHER ==
[2017-04-30 08:22] LABS: PROTHROMBIN TIME 24.2 SEC (11.4-15.4)
== END ==
LOC: OD 07:11
PROVIDERS: ATTEND Internal Medicine Cardiovascular Disease
DX: I48.0 Paroxysmal atrial fibrillation (principal); Z79.01 Long term (current) use of anticoagulants
CPT/HCPCS: 36415; 85610

== ENCOUNTER → 2017-05-14 | Outpatient (CLI) | payer MEDICARE, OTHER ==
[2017-05-14 08:34] LABS: PROTHROMBIN TIME 33.7 SEC (11.4-15.4)
[2017-05-14 08:56] LABS: ALANINE AMINOTRANSFERASE 29 U/L (9-52); ALBUMIN 3.7 g/dL (3.5-5.0); ALKALINE PHOSPHATASE 88 U/L (38-126); ANION GAP 10 (5-19); ASPARTATE AMINO TRANSFERASE 26 U/L (14-36); BILIRUBIN,DIRECT 0.3 mg/dL (0.0-0.4); BILIRUBIN,TOTAL 0.5 mg/dL (0.2-1.3); BLOOD UREA NITROGEN 26 mg/dL (7-20); CARBON DIOXIDE 22 mmol/L (22-30); CHLORIDE 107 mmol/L (98-107); CREATININE RESULT 1.48 mg/dL (0.52-1.25); GLUCOSE 103 mg/dL (75-110); POTASSIUM 4.3 mmol/L (3.6-5.0); SODIUM 138.7 mmol/L (137-145)
== END ==
LOC: OD 07:43
PROVIDERS: ATTEND Internal Medicine Cardiovascular Disease
DX: Z79.01 Long term (current) use of anticoagulants (principal); I48.0 Paroxysmal atrial fibrillation; N18.3 Chronic kidney disease, stage 3 (moderate); Z79.899 Other long term (current) drug therapy
CPT/HCPCS: 36415; 80048; 80076; 84443; 85610

== ENCOUNTER → 2017-05-25 | Outpatient (CLI) | payer MEDICARE, OTHER | LOC: OD 07:04 | PROVIDERS: ATTEND Internal Medicine Cardiovascular Disease | DX: I48.0 Paroxysmal atrial fibrillation (principal); Z79.01 Long term (current) use of anticoagulants | CPT/HCPCS: 36415; 85610 ==

== ENCOUNTER → 2017-06-13 | Outpatient (CLI) | payer MEDICARE, OTHER ==
[2017-06-13 08:21] LABS: PROTHROMBIN TIME 28.2 SEC (11.4-15.4)
== END ==
LOC: OD 07:19
PROVIDERS: ATTEND Internal Medicine Cardiovascular Disease
DX: I48.0 Paroxysmal atrial fibrillation (principal); Z79.01 Long term (current) use of anticoagulants
CPT/HCPCS: 36415; 85610

== ENCOUNTER → 2017-06-25 | Outpatient (CLI) | payer MEDICARE, OTHER ==
[2017-06-25 08:27] LABS: INTERNATIONAL RATION (INR) 2.51; PROTHROMBIN TIME 28.4 SEC (11.4-15.4)
== END ==
LOC: OD 07:23
PROVIDERS: ATTEND Internal Medicine Cardiovascular Disease
DX: I48.0 Paroxysmal atrial fibrillation (principal); Z79.01 Long term (current) use of anticoagulants
CPT/HCPCS: 36415; 85610

== ENCOUNTER 2017-07-05 07:03 | Day surgery (SDC) | payer MEDICARE, OTHER ==
[~2017-07-05 07:03] MED LIST: KETOROLAC TROMETHAMINE 0.45% 4 DROP/0.4 ML DROPERETTE OD PRN
[2017-07-05] MEDS ORDERED: EPINEPHRINE INJ/PF 1 MG/1 ML AMPULE ONE (07:13)
[2017-07-05] MEDS ORDERED: LIDOCAINE 1% INJ-PF (10 MG/ML) 30 ML SDV ONE (07:13)
[2017-07-05] MEDS ORDERED: CHONDR SU A NA/HYALUR INTRAOC KIT (SURGICARE) ONE ×2 (07:13→09:03)
[2017-07-05] MEDS: BESIFLOXACIN HCL 0.6% OPH SUSP 5 ML BOTTLE OD PRN ×4 (08:00→09:13)
[2017-07-05] MEDS: TROPICAMIDE 1% OPH SOLN 3 ML OD PRN ×3 (08:00→08:20)
[2017-07-05] MEDS: TETRACAINE HCL 0.5% OPH SOLN 2 ML OD PRN ×3 (08:00→08:26)
[2017-07-05] MEDS: CYCLOPENTOLATE 0.2%/PHENYLEPHRINE 1% OPH SOLN 2 ML OD PRN ×3 (08:00→08:20)
[2017-07-05] MEDS ORDERED: FENTANYL CITRATE INJ/PF 100 MCG/2 ML AMPUL ONE (08:08)
[2017-07-05] MEDS ORDERED: MIDAZOLAM 2 MG/2 ML INJ ONE (08:08)
[2017-07-05] MEDS ORDERED: TRYPAN BLUE 0.06 % OPH SOLN 0.5 ML DISP.SYRIN ONE (08:36)
[2017-07-05] MEDS ORDERED: CHONDR SU A NA/HYALUR SOD 0.5 ML DISP.SYRIN ONE (08:42)
--- NOTE | 2017-07-05 21:28 | [facility]ARE OPERATIVE REPORT E ---
[facility] NAME: JJ MCKEON AGE: 82Y DATE OF SURGERY: 07/05/2017 ROOM: PREOPERATIVE DIAGNOSIS: 1. 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 2. PUPIL MYOSIS. POSTOPERATIVE DIAGNOSIS: 1. 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 2. PUPIL MYOSIS. OPERATION: Complex cataract extraction with use of a Malyugin ring and Trypan Blue dye. SURGEON: CUCA ZELAYA M.D. ANESTHESIA: Topical. PROCEDURE: After obtaining appropriate consent, the patient's right eye was prepped and draped in sterile fashion as well as the surgeon in a sterile manner and cataract surgery was started. First a paracentesis blade was used to make a small side-port incision. Viscoelastic was used to inflate the anterior chamber. Next a 2.4 mm incision was made with the paracentesis blade. A continuous capsulorrhexis incision was made using a cystotome and Utrata forceps. Following this hydrodissection was carried out to make the lens fully loose and mobile and it was rotated 90 degrees. Following this, a nglvay-ejc-uqcxhbz technique was used to phacoemulsify the lens with a CDE of 65.88. The remaining cortex was removed with irrigation/aspiration. Provisc was instilled into the capsular bag to inflate the bag. A 0.0MM6 MA lens was placed. The remaining viscoelastic material was removed with irrigation/aspiration. Following this, a 10-0 nylon suture was used to close the incision and it was found to be watertight. Vigamox was instilled in the eye and a protective shield was placed over the eye. The patient returned to the postoperative recovery in stable condition. Prior to making the capsulorrhexis a Malyugin ring was inserted due to very myotic pupil and prior to making the capsulorrhexis the anterior capsule was stained with Trypan Blue dye due to poor red reflex due to density of the lens. The Malyugin ring was removed at the end of the case. DICTATING PHYSICIAN: CUCA ZELAYA M.D. [id number] PHY#: [id number] 2020 ID: [id number] JOB#: [id number] ACCT: [id number] cc:CUCA ZELAYA M.D. >
--- NOTE | 2017-07-05 21:28 | SURGICARE DISCHARGE SUMMARY E ---
[facility] Discharge Summary NAME: JJ MCKEON AGE: 82Y ADMITTED: 07/05/2017 DISCHARGED: 07/05/2017 HOSPITAL COURSE: This is an 82-year-old female who underwent complex cataract extraction with IOL with insertion of Trypan Blue dye and Malyugin ring due to density of the lens and poor pupillary dilation. DIAGNOSIS: 1. AGE RELATED CATARACT. 2. PUPIL MYOSIS OF THE RIGHT EYE. The patient underwent surgery because she was unable to see the TV or any road signs with the right eye. DISCHARGE INSTRUCTIONS: She should be on a regular diet. No bending at her waist, no heavy lifting. She should use Besivance, Ilevro, and Durezol at 3 p.m. and 8 p.m. and sleep with a rigid shield. I will see her for her 1 day postoperative tomorrow. DICTATING PHYSICIAN: CUCA ZELAYA M.D. [id number] PHY#: [id number] 2020 ID: [id number] JOB#: [id number] ACCT: [id number] cc:CUCA ZELAYA M.D. >
== END 2017-07-05 10:06 | disposition home or self-care (01) ==
LOC: SC 07:03
PROVIDERS: ATTEND Internal Medicine
PROC: 08RJ3JZ Replacement of Right Lens with Synthetic Substitute, Percutaneous Approach (ICD-10-PCS; principal; 2017-07-05 08:30)
DX: H25.11 Age-related nuclear cataract, right eye (principal); H57.03 Miosis; H35.3221 Exudative age-related macular degeneration, left eye, with active choroidal neovascularization; H43.12 Vitreous hemorrhage, left eye; H04.123 Dry eye syndrome of bilateral lacrimal glands; I48.91 Unspecified atrial fibrillation; Z87.891 Personal history of nicotine dependence; Z85.828 Personal history of other malignant neoplasm of skin; Z79.899 Other long term (current) drug therapy; Z79.01 Long term (current) use of anticoagulants; Z95.2 Presence of prosthetic heart valve
CPT/HCPCS: 66982; V2630; J2250; J3490 ×4; A9270; J0171; 142; J3010

== ENCOUNTER → 2017-07-11 | Outpatient (CLI) | payer MEDICARE, OTHER ==
[2017-07-11 08:26] LABS: INTERNATIONAL RATION (INR) 2.59; PROTHROMBIN TIME 29.1 SEC (11.4-15.4)
== END ==
LOC: OD 07:31
PROVIDERS: ATTEND Internal Medicine Cardiovascular Disease
DX: I48.0 Paroxysmal atrial fibrillation (principal); Z79.01 Long term (current) use of anticoagulants
CPT/HCPCS: 36415; 85610

== ENCOUNTER → 2017-07-24 | Outpatient (CLI) | payer MEDICARE, OTHER ==
[2017-07-24 08:23] LABS: INTERNATIONAL RATION (INR) 2.52; PROTHROMBIN TIME 28.5 SEC (11.4-15.4)
== END ==
LOC: OD 07:08
PROVIDERS: ATTEND Internal Medicine Cardiovascular Disease
DX: I48.0 Paroxysmal atrial fibrillation (principal); Z79.01 Long term (current) use of anticoagulants
CPT/HCPCS: 36415; 85610

== ENCOUNTER → 2017-08-20 | Outpatient (CLI) | payer MEDICARE, OTHER ==
[2017-08-20 08:39] LABS: PROTHROMBIN TIME 32.6 SEC (11.4-15.4)
== END ==
LOC: OD 07:12
PROVIDERS: ATTEND Internal Medicine Cardiovascular Disease
DX: Z51.81 Encounter for therapeutic drug level monitoring (principal); Z79.01 Long term (current) use of anticoagulants
CPT/HCPCS: 36415; 85610

== ENCOUNTER → 2017-08-27 | Outpatient (CLI) | payer MEDICARE, OTHER ==
--- NOTE | 2017-08-27 10:25 | RADIOLOGY REPORT (SQ) ---
EXAM DESCRIPTION: CHEST PA/LATERAL COMPLETED DATE/TIME: 08/27/2017 7:57 am REASON FOR STUDY: OTHER FORMS OF DYSPNEA COMPARISON: 09/26/2016 EXAM PARAMETERS: NUMBER OF VIEWS: two views TECHNIQUE: Digital Frontal and Lateral radiographic views of the chest acquired. RADIATION DOSE: NA LIMITATIONS: none FINDINGS: LUNGS AND PLEURA: Small right pleural effusion with underlying atelectasis or pneumonia si milar to prior study. Remainder lungs are clear. No left effusion. MEDIASTINUM AND HILAR STRUCTURES: No masses or contour abnormalities. HEART AND VASCULAR STRUCTURES: Heart normal size. No evidence for failure. BONES: No acute findings. HARDWARE: Status post CABG. OTHER: No other significant finding. IMPRESSION: Small right pleural effusion with underlying atelectasis or pneumonia similar to prior s noédy. TECHNICAL DOCUMENTATION: JOB ID: [id number] [employer]- All Rights Reserved Reading location - IP/workstation name: [email or web address]
== END ==
LOC: OD 07:42
PROVIDERS: ATTEND Internal Medicine Cardiovascular Disease
DX: J90 Pleural effusion, not elsewhere classified (principal); R06.09 Other forms of dyspnea; Z95.1 Presence of aortocoronary bypass graft
CPT/HCPCS: 71046

== ENCOUNTER → 2017-09-04 | Outpatient (CLI) | payer MEDICARE, OTHER ==
[2017-09-04 08:51] LABS: ALANINE AMINOTRANSFERASE 57 U/L (9-52); ALBUMIN 3.3 g/dL (3.5-5.0); ALKALINE PHOSPHATASE 74 U/L (38-126); ANION GAP 8 (5-19); ASPARTATE AMINO TRANSFERASE 63 U/L (14-36); BILIRUBIN,DIRECT 0.4 mg/dL (0.0-0.4); BILIRUBIN,TOTAL 0.6 mg/dL (0.2-1.3); BLOOD UREA NITROGEN 19 mg/dL (7-20); CALCIUM 8.8 mg/dL (8.4-10.2); CARBON DIOXIDE 27 mmol/L (22-30); CHLORIDE 104 mmol/L (98-107); GLUCOSE 111 mg/dL (75-110); SODIUM 138.5 mmol/L (137-145); TOTAL PROTEIN 5.9 g/dL (6.3-8.2)
[2017-09-04 13:20] LABS: INTERNATIONAL RATION (INR) 4.15; PROTHROMBIN TIME 41.9 SEC (11.4-15.4)
== END ==
LOC: OD 07:11
PROVIDERS: ATTEND Internal Medicine Cardiovascular Disease
DX: I48.0 Paroxysmal atrial fibrillation (principal); Z79.01 Long term (current) use of anticoagulants; Z79.899 Other long term (current) drug therapy
CPT/HCPCS: 36415; 80048; 80076; 83735; 84443; 85610

== ENCOUNTER → 2017-09-07 | Outpatient (CLI) | payer MEDICARE, OTHER ==
[2017-09-07 15:01] LABS: INTERNATIONAL RATION (INR) 2.26
== END ==
LOC: OD 14:10
PROVIDERS: ATTEND Internal Medicine Cardiovascular Disease
DX: I48.0 Paroxysmal atrial fibrillation (principal); Z79.01 Long term (current) use of anticoagulants
CPT/HCPCS: 36415; 85610

== ENCOUNTER → 2017-09-14 | Outpatient (CLI) | payer MEDICARE, OTHER ==
[2017-09-14 08:57] LABS: INTERNATIONAL RATION (INR) 3.01; PROTHROMBIN TIME 32.6 SEC (11.4-15.4)
== END ==
LOC: OD 07:12
PROVIDERS: ATTEND Internal Medicine Cardiovascular Disease
DX: I48.0 Paroxysmal atrial fibrillation (principal); Z79.01 Long term (current) use of anticoagulants
CPT/HCPCS: 36415; 85610

== ENCOUNTER → 2017-09-26 | Outpatient (CLI) | payer MEDICARE, OTHER ==
[2017-09-26 08:14] LABS: INTERNATIONAL RATION (INR) 3.05
== END ==
LOC: OD 07:11
PROVIDERS: ATTEND Internal Medicine Cardiovascular Disease
DX: I48.0 Paroxysmal atrial fibrillation (principal); Z79.01 Long term (current) use of anticoagulants
CPT/HCPCS: 36415; 85610

== ENCOUNTER → 2017-10-10 | Outpatient (CLI) | payer MEDICARE, OTHER ==
[2017-10-10 08:36] LABS: INTERNATIONAL RATION (INR) 2.35; PROTHROMBIN TIME 26.9 SEC (11.4-15.4)
== END ==
LOC: OD 07:05
PROVIDERS: ATTEND Internal Medicine Cardiovascular Disease
DX: I48.0 Paroxysmal atrial fibrillation (principal); Z79.01 Long term (current) use of anticoagulants; Z79.899 Other long term (current) drug therapy
CPT/HCPCS: 36415; 85610

== ENCOUNTER → 2017-10-22 | Outpatient (CLI) | payer MEDICARE, OTHER ==
[2017-10-22 09:06] LABS: INTERNATIONAL RATION (INR) 2.49; PROTHROMBIN TIME 28.1 SEC (11.4-15.4)
== END ==
LOC: OD 07:51
PROVIDERS: ATTEND Internal Medicine Cardiovascular Disease
DX: I48.0 Paroxysmal atrial fibrillation (principal); Z79.01 Long term (current) use of anticoagulants
CPT/HCPCS: 36415; 85610

== ENCOUNTER → 2017-11-06 | Outpatient (CLI) | payer MEDICARE, OTHER ==
[2017-11-06 08:04] LABS: INTERNATIONAL RATION (INR) 2.09; PROTHROMBIN TIME 24.5 SEC (11.4-15.4)
== END ==
LOC: OD 07:20
PROVIDERS: ATTEND Internal Medicine Cardiovascular Disease
DX: I48.0 Paroxysmal atrial fibrillation (principal); Z79.01 Long term (current) use of anticoagulants
CPT/HCPCS: 36415; 85610

== ENCOUNTER → 2017-11-20 | Outpatient (CLI) | payer MEDICARE, OTHER ==
[2017-11-20 08:31] LABS: PROTHROMBIN TIME 23.6 SEC (11.4-15.4)
== END ==
LOC: OD 07:37
PROVIDERS: ATTEND Internal Medicine Cardiovascular Disease
DX: I48.0 Paroxysmal atrial fibrillation (principal); Z79.01 Long term (current) use of anticoagulants
CPT/HCPCS: 36415; 85610

== ENCOUNTER → 2017-12-03 | Outpatient (CLI) | payer MEDICARE, OTHER ==
[2017-12-03 08:23] LABS: INTERNATIONAL RATION (INR) 1.78; PROTHROMBIN TIME 21.6 SEC (11.4-15.4)
[2017-12-03 10:40] LABS: ANION GAP 10 (5-19); BLOOD UREA NITROGEN 24 mg/dL (7-20); CARBON DIOXIDE 25 mmol/L (22-30); CHLORIDE 107 mmol/L (98-107); GLUCOSE 93 mg/dL (75-110); POTASSIUM 4.5 mmol/L (3.6-5.0); SODIUM 141.7 mmol/L (137-145)
== END ==
LOC: OD 07:15
PROVIDERS: ATTEND Internal Medicine Cardiovascular Disease
DX: I48.0 Paroxysmal atrial fibrillation (principal); Z79.01 Long term (current) use of anticoagulants
CPT/HCPCS: 36415; 80048; 85610

== ENCOUNTER → 2017-12-10 | Outpatient (CLI) | payer MEDICARE, OTHER ==
[2017-12-10 08:56] LABS: INTERNATIONAL RATION (INR) 2.17; PROTHROMBIN TIME 25.2 SEC (11.4-15.4)
== END ==
LOC: OD 08:06
PROVIDERS: ATTEND Internal Medicine Cardiovascular Disease
DX: I48.0 Paroxysmal atrial fibrillation (principal); Z79.01 Long term (current) use of anticoagulants
CPT/HCPCS: 36415; 85610

== ENCOUNTER → 2017-12-20 | Outpatient (CLI) | payer MEDICARE, OTHER ==
[2017-12-20 08:48] LABS: ANION GAP 10 (5-19); BLOOD UREA NITROGEN 22 mg/dL (7-20); CALCIUM 8.9 mg/dL (8.4-10.2); CARBON DIOXIDE 24 mmol/L (22-30); CHLORIDE 109 mmol/L (98-107); GLUCOSE 98 mg/dL (75-110); POTASSIUM 4.5 mmol/L (3.6-5.0); SODIUM 143.2 mmol/L (137-145)
== END ==
LOC: LAB 07:55
PROVIDERS: ATTEND Internal Medicine Cardiovascular Disease
DX: N18.3 Chronic kidney disease, stage 3 (moderate) (principal)
CPT/HCPCS: 36415; 80048

== ENCOUNTER → 2017-12-21 | Outpatient (CLI) | payer MEDICARE, OTHER ==
[2017-12-21 08:41] LABS: INTERNATIONAL RATION (INR) 2.09; PROTHROMBIN TIME 24.5 SEC (11.4-15.4)
== END ==
LOC: OD 07:09
PROVIDERS: ATTEND Internal Medicine Cardiovascular Disease
DX: I48.0 Paroxysmal atrial fibrillation (principal); Z79.01 Long term (current) use of anticoagulants
CPT/HCPCS: 36415; 85610

== ENCOUNTER → 2018-01-07 | Outpatient (CLI) | payer MEDICARE, OTHER ==
[2018-01-07 08:19] LABS: PROTHROMBIN TIME 24.6 SEC (11.4-15.4)
== END ==
LOC: OD 07:11
PROVIDERS: ATTEND Internal Medicine Cardiovascular Disease
DX: I48.0 Paroxysmal atrial fibrillation (principal); Z79.01 Long term (current) use of anticoagulants
CPT/HCPCS: 36415; 85610

== ENCOUNTER → 2018-01-21 | Outpatient (CLI) | payer MEDICARE, OTHER ==
[2018-01-21 07:17] LABS: INTERNATIONAL RATION (INR) 1.87; PROTHROMBIN TIME 22.5 SEC (11.4-15.4)
== END ==
LOC: LAB 06:55
PROVIDERS: ATTEND Internal Medicine Cardiovascular Disease
DX: I48.0 Paroxysmal atrial fibrillation (principal); Z79.01 Long term (current) use of anticoagulants
CPT/HCPCS: 36415; 85610

== ENCOUNTER → 2018-02-05 | Outpatient (CLI) | payer MEDICARE, OTHER ==
[2018-02-05 07:53] LABS: PROTHROMBIN TIME 27.3 SEC (11.4-15.4)
[2018-02-05 08:16] LABS: ALANINE AMINOTRANSFERASE 20 U/L (9-52); ALBUMIN 3.8 g/dL (3.5-5.0); ALKALINE PHOSPHATASE 81 U/L (38-126); ANION GAP 12 (5-19); ASPARTATE AMINO TRANSFERASE 28 U/L (14-36); BILIRUBIN,DIRECT 0.3 mg/dL (0.0-0.4); BILIRUBIN,TOTAL 0.7 mg/dL (0.2-1.3); BLOOD UREA NITROGEN 23 mg/dL (7-20); CARBON DIOXIDE 20 mmol/L (22-30); CHLORIDE 108 mmol/L (98-107); GLUCOSE 103 mg/dL (75-110); POTASSIUM 4.5 mmol/L (3.6-5.0); SODIUM 140.4 mmol/L (137-145); TOTAL PROTEIN 6.5 g/dL (6.3-8.2)
== END ==
LOC: LAB 07:13
PROVIDERS: ATTEND Internal Medicine Cardiovascular Disease
DX: I48.0 Paroxysmal atrial fibrillation (principal); Z79.01 Long term (current) use of anticoagulants
CPT/HCPCS: 36415; 80048; 80076; 83735; 84443; 85610

== ENCOUNTER → 2018-02-25 | Outpatient (CLI) | payer MEDICARE, OTHER ==
[2018-02-25 07:40] LABS: PROTHROMBIN TIME 28.2 SEC (11.4-15.4)
== END ==
LOC: LAB 07:26
PROVIDERS: ATTEND Internal Medicine Cardiovascular Disease
DX: I48.0 Paroxysmal atrial fibrillation (principal); Z79.01 Long term (current) use of anticoagulants
CPT/HCPCS: 36415; 85610

== ENCOUNTER → 2018-03-11 | Outpatient (CLI) | payer MEDICARE ==
[2018-03-11 07:45] LABS: INTERNATIONAL RATION (INR) 2.31; PROTHROMBIN TIME 26.5 SEC (11.4-15.4)
== END ==
LOC: LAB 07:19
PROVIDERS: ATTEND Internal Medicine Cardiovascular Disease
DX: I48.0 Paroxysmal atrial fibrillation (principal); Z79.01 Long term (current) use of anticoagulants
CPT/HCPCS: 36415; 85610

== ENCOUNTER → 2018-03-12 | Outpatient (CLI) | payer MEDICARE, OTHER ==
--- NOTE | 2018-03-12 11:21 | WOMENS IMAGING REPORT ---
EXAM DESCRIPTION: BONE DENSITY HIP/SPINE COMPLETED DATE/TIME: 03/12/2018 8:07 am REASON FOR STUDY: DISORDER OF BONE Z12.31 ENCNTR SCREEN MAMMOGRAM FOR MALIGNANT NEOPLASM OF LIA M89 .9 DISORDER OF BONE, UNSPECIFIED COMPARISON: None. TECHNIQUE: Dual-Energy X-ray Absorptiometry (DEXA) of the AP Spine and Hip. LIMITATIONS: None. FINDINGS: LUMBAR SPINE: The bone mineral density (BMD) measured from L1-L4 in the AP projection correlates with a T-score of -1.8, which is osteopenia as defined by the World Health Organization. HIP: The bone mineral density (BMD) measured in the left hip correlates with a T-score of -2.9, which is o steoporosis as defined by the World Health Organization. IMPRESSION: 1. LUMBAR SPINE: OSTEOPENIA. 2. HIP: OSTEOPOROSIS. COMMENT: The World Health Organization defines low BMD as follows: T-score: Normal: Greater than -1.0 Osteopenia: Between -1.0 and -2.5 Osteoporosis: Less than -2.5 without fractures Established osteoporosis: Less than -2.5 with fractures In general, you may wish to consider: Diagnosis Treatment Follow-up DEXA Normal BMD Prevention 2-3 years Osteopenia Prevention/Therapy 1-2 years Osteoporosis Therapy Yearly TECHNICAL DOCUMENTATION: JOB ID: [id number] [employer]- All Rights Reserved Reading location - IP/workstation name: [email or web address]
--- NOTE | 2018-03-12 13:37 | WOMENS IMAGING REPORT ---
EXAM DESCRIPTION: 3D SCREENING MAMMO BILAT COMPLETED DATE/TIME: 03/12/2018 8:07 am REASON FOR STUDY: SCREENING MAMMO Z12.31 ENCNTR SCREEN MAMMOGRAM FOR MALIGNANT NEOPLASM OF LIA M89. 9 DISORDER OF BONE, UNSPECIFIED COMPARISON: 12/12/2016 and 12/07/2014. TECHNIQUE: Standard craniocaudal and mediolateral oblique views of each breast recorded using digita l acquisition and breast tomosynthesis. LIMITATIONS: None. FINDINGS: No masses, calcifications or architectural distortion. No areas of suspicion. Read with the assistance of CAD. .[facility] - R2 Cenova Version 1.3 .[facility] Imaging - R2 Cenova Version 1.3 .[facility] Imaging - R2 Cenova Version 2.4 .[facility] [place] - R2 Cenova Version 2.4 .[facility] - R2 [employer] Glass Version 9.2 IMPRESSION: NORMAL MAMMOGRAM. BIRADS 1. BREAST DENSITY: c. The breasts are heterogeneously dense, which may obscure small masses. BIRAD: 1 NEGATIVE RECOMMENDATION: ROUTINE SCREENING COMMENT: The patient has been notified of the results by letter per SA requirements. Additional no tification policies are in place for contacting patient with suspicious or incomplete findings. Quality ID #225: The [employer] recommends an annual screening mammogram for women aged 40 years or over. This facility utilizes a reminder system to ensure that all patients receive reminder letters, and/or direct phone calls for appointments. This includes reminders for routine scr eening mammograms, diagnostic mammograms, or other Breast Imaging Interventions when appropriate. Th is patient will be placed in the appropriate reminder system. The [employer] (ACR) has developed recommendations for screening MRI of the breast s in certain patient populations, to be used in conjunction with mammography. Breast MRI surveillanc e may be appropriate for women with more than 20% lifetime risk of developing breast cancer as deter mined by genetic testing, significant family history of the disease, or history of mantle radiation f or Hodgkins Disease. ACR Practice Guidelines 2008. DBT Technology DBT is a type of tomographic mammography. With conventional mammography, overlapping breast tissue ma y make lesions difficult to detect, even with good compression. DBT uses an x-ray tube that rotates a round the breast, taking images at different angles. These images are then combined to create thin sl ices of the breast that the radiologist can view as a 3D reconstruction. The Encentuate unit can perform full-field digital mammograms (2D imaging); or DBT (3D imaging); or both, in a combination mode that quickly performs both the mammogram and the tomosynthesis scan while the breast is still compressed. PQRS 6045F: Fluoroscopic imaging is not utilized for breast tomosynthesis. TECHNICAL DOCUMENTATION: FINDING NUMBER: (1) ASSESSMENT: (1) JOB ID: [id number] [employer]- All Rights Reserved Reading location - IP/workstation name: [email or web address]
== END ==
LOC: WI 07:13
PROVIDERS: ATTEND Nurse Practitioner
DX: Z12.31 Encounter for screening mammogram for malignant neoplasm of breast (principal); M81.0 Age-related osteoporosis without current pathological fracture
CPT/HCPCS: 77063; 77067; 77080

== ENCOUNTER → 2018-04-10 | Outpatient (CLI) | payer MEDICARE ==
[2018-04-10 07:57] LABS: INTERNATIONAL RATION (INR) 2.11; PROTHROMBIN TIME 24.7 SEC (11.4-15.4)
== END ==
LOC: LAB 07:26
PROVIDERS: ATTEND Internal Medicine Cardiovascular Disease
DX: I48.0 Paroxysmal atrial fibrillation (principal); Z79.01 Long term (current) use of anticoagulants; Z79.899 Other long term (current) drug therapy
CPT/HCPCS: 36415; 85610

== ENCOUNTER → 2018-05-09 | Outpatient (CLI) | payer MEDICARE ==
[2018-05-09 08:04] LABS: HEMATOCRIT 40.1 % (36.0-47.0); HEMOGLOBIN 13.5 g/dL (12.0-15.5); MEAN CORPUSCULAR HEMOGLOBIN 30.2 pg (27.0-33.4); MEAN CORPUSCULAR HGB CONC 33.8 g/dL (32.0-36.0); MEAN CORPUSCULAR VOLUME 90 fl (80-97); PLATELET COUNT 218 10^3/uL (150-450); RED BLOOD COUNT 4.48 10^6/uL (3.72-5.28); RED CELL DISTRIBUTION WIDTH 16.3 % (11.5-14.0); WHITE BLOOD COUNT 5.9 10^3/uL (4.0-10.5)
[2018-05-09 08:10] LABS: ALANINE AMINOTRANSFERASE 25 U/L (9-52); ALBUMIN 3.7 g/dL (3.5-5.0); ALKALINE PHOSPHATASE 86 U/L (38-126); ANION GAP 8 (5-19); ASPARTATE AMINO TRANSFERASE 37 U/L (14-36); BILIRUBIN,DIRECT 0.2 mg/dL (0.0-0.4); BILIRUBIN,TOTAL 0.5 mg/dL (0.2-1.3); BLOOD UREA NITROGEN 28 mg/dL (7-20); CALCIUM 8.9 mg/dL (8.4-10.2); CARBON DIOXIDE 26 mmol/L (22-30); CHLORIDE 108 mmol/L (98-107); CHOLESTEROL 241.82 mg/dL (0-200); GLUCOSE 99 mg/dL (75-110); POTASSIUM 4.3 mmol/L (3.6-5.0); SODIUM 142.4 mmol/L (137-145); TOTAL PROTEIN 6.3 g/dL (6.3-8.2); TRIGLYCERIDES 67 mg/dL (<150)
[2018-05-09 08:21] LABS: DIRECT LDL 154 mg/dL (<100)
[2018-05-09 08:42] LABS: PROTHROMBIN TIME 20.8 SEC (11.4-15.4)
== END ==
LOC: LAB 07:22
PROVIDERS: ATTEND Internal Medicine Cardiovascular Disease
DX: I10 Essential (primary) hypertension (principal); E78.00 Pure hypercholesterolemia, unspecified; I48.0 Paroxysmal atrial fibrillation; Z79.01 Long term (current) use of anticoagulants; Z79.899 Other long term (current) drug therapy; R06.09 Other forms of dyspnea
CPT/HCPCS: 36415; 80048; 80061; 80076; 83735; 83880; 84443; 85027; 85610

== ENCOUNTER → 2018-05-23 | Outpatient (CLI) | payer MEDICARE ==
[2018-05-23 07:33] LABS: INTERNATIONAL RATION (INR) 1.44; PROTHROMBIN TIME 18.3 SEC (11.4-15.4)
== END ==
LOC: LAB 07:12
PROVIDERS: ATTEND Internal Medicine Cardiovascular Disease
DX: Z79.01 Long term (current) use of anticoagulants (principal)
CPT/HCPCS: 36415; 85610

== ENCOUNTER → 2018-05-27 | Outpatient (CLI) | payer MEDICARE ==
[2018-05-27 07:40] LABS: INTERNATIONAL RATION (INR) 1.97; PROTHROMBIN TIME 23.4 SEC (11.4-15.4)
== END ==
LOC: LAB 07:06
PROVIDERS: ATTEND Internal Medicine Cardiovascular Disease
DX: Z79.01 Long term (current) use of anticoagulants (principal)
CPT/HCPCS: 36415; 85610

== ENCOUNTER → 2018-06-03 | Outpatient (CLI) | payer MEDICARE ==
[2018-06-03 07:38] LABS: PROTHROMBIN TIME 18.9 SEC (11.4-15.4)
== END ==
LOC: LAB 07:11
PROVIDERS: ATTEND Internal Medicine Cardiovascular Disease
DX: I48.0 Paroxysmal atrial fibrillation (principal); Z79.01 Long term (current) use of anticoagulants
CPT/HCPCS: 36415; 85610

== ENCOUNTER → 2018-06-10 | Outpatient (CLI) | payer MEDICARE ==
[2018-06-10 07:34] LABS: INTERNATIONAL RATION (INR) 2.54; PROTHROMBIN TIME 28.5 SEC (11.4-15.4)
== END ==
LOC: LAB 07:10
PROVIDERS: ATTEND Internal Medicine Cardiovascular Disease
DX: I48.0 Paroxysmal atrial fibrillation (principal); Z79.01 Long term (current) use of anticoagulants
CPT/HCPCS: 36415; 85610

== ENCOUNTER → 2018-06-24 | Outpatient (CLI) | payer MEDICARE ==
[2018-06-24 07:49] LABS: INTERNATIONAL RATION (INR) 1.84; PROTHROMBIN TIME 22.1 SEC (11.4-15.4)
== END ==
LOC: LAB 07:08
PROVIDERS: ATTEND Internal Medicine Cardiovascular Disease
DX: I48.0 Paroxysmal atrial fibrillation (principal); Z79.01 Long term (current) use of anticoagulants; Z79.899 Other long term (current) drug therapy
CPT/HCPCS: 36415; 85610

== ENCOUNTER → 2018-07-09 | Outpatient (CLI) | payer MEDICARE ==
[2018-07-09 07:38] LABS: PROTHROMBIN TIME 22.7 SEC (11.4-15.4)
== END ==
LOC: LAB 07:09
PROVIDERS: ATTEND Internal Medicine Cardiovascular Disease
DX: I48.0 Paroxysmal atrial fibrillation (principal); Z79.01 Long term (current) use of anticoagulants; Z79.899 Other long term (current) drug therapy
CPT/HCPCS: 36415; 85610

== ENCOUNTER → 2018-07-23 | Outpatient (CLI) | payer MEDICARE ==
[2018-07-23 07:34] LABS: PROTHROMBIN TIME 24.6 SEC (11.4-15.4)
== END ==
LOC: LAB 07:08
PROVIDERS: ATTEND Internal Medicine Cardiovascular Disease
DX: I48.0 Paroxysmal atrial fibrillation (principal); Z79.01 Long term (current) use of anticoagulants; Z79.899 Other long term (current) drug therapy
CPT/HCPCS: 36415; 85610

== ENCOUNTER 2018-07-27 08:46 | Emergency (ER) | payer MEDICARE, OTHER ==
[2018-07-27] MEDS ORDERED: ASPIRIN 81 MG TABLET, CHEWABLE PO ONE (09:29)
--- NOTE | 2018-07-27 10:22 | RADIOLOGY REPORT (SQ) ---
EXAM DESCRIPTION: CHEST SINGLE VIEW COMPLETED DATE/TIME: 07/27/2018 10:00 am REASON FOR STUDY: cp COMPARISON: No 08/27/2017 EXAM PARAMETERS: NUMBER OF VIEWS: One view. TECHNIQUE: Single frontal radiographic view of the chest acquired. RADIATION DOSE: NA LIMITATIONS: None. FINDINGS: LUNGS AND PLEURA: Partial right pneumonectomy. Flattening of the hemidiaphragms. No evid ence of pulmonary edema or pneumonia. MEDIASTINUM AND HILAR STRUCTURES: No masses. Contour normal. HEART AND VASCULAR STRUCTURES: Heart normal in size. Normal vasculature. BONES: No acute findings. HARDWARE: Clips right hilum. OTHER: No other significant finding. IMPRESSION: NO ACUTE RADIOGRAPHIC FINDING IN THE CHEST. TECHNICAL DOCUMENTATION: JOB ID: [id number] [employer]- All Rights Reserved Reading location - IP/workstation name: [email or web address]
[2018-07-27 10:31] LABS: ABSOLUTE BASOPHILS # (AUTO) 0.1 10^3/uL (0.0-0.2); ABSOLUTE EOSINOPHILS # (AUTO) 0.2 10^3/uL (0.0-0.6); ABSOLUTE LYMPHOCYTES (AUTO) 1.3 10^3/uL (0.5-4.7); ABSOLUTE MONOCYTES (AUTO) 0.8 10^3/uL (0.1-1.4); ABSOLUTE NEUT (AUTO) 5.3 10^3/uL (1.7-8.2); BASOPHILS % (AUTO) 1.2 % (0-2); EOSINOPHILS % (AUTO) 2.1 % (0-6); HEMATOCRIT 41.8 % (36.0-47.0); HEMOGLOBIN 14.5 g/dL (12.0-15.5); LYMPHOCYTES % (AUTO) 16.6 % (13-45); MEAN CORPUSCULAR HEMOGLOBIN 30.6 pg (27.0-33.4); MEAN CORPUSCULAR HGB CONC 34.6 g/dL (32.0-36.0); MEAN CORPUSCULAR VOLUME 89 fl (80-97); MONOCYTES % (AUTO) 10.4 % (3-13); PLATELET COUNT 236 10^3/uL (150-450); RED BLOOD COUNT 4.72 10^6/uL (3.72-5.28); RED CELL DISTRIBUTION WIDTH 16.4 % (11.5-14.0); SEGMENTED NEUTROPHILS % (AUTO) 69.7 % (42-78); TOTAL CELLS COUNTED % (AUTO) 100 %; WHITE BLOOD COUNT 7.6 10^3/uL (4.0-10.5)
[2018-07-27 10:36] LABS: INTERNATIONAL RATION (INR) 2.41; PROTHROMBIN TIME 27.4 SEC (11.4-15.4)
[2018-07-27 10:41] LABS: ALANINE AMINOTRANSFERASE 22 U/L (9-52); ALBUMIN 4.2 g/dL (3.5-5.0); ALKALINE PHOSPHATASE 102 U/L (38-126); ANION GAP 6 (5-19); ASPARTATE AMINO TRANSFERASE 32 U/L (14-36); BILIRUBIN,DIRECT 0.1 mg/dL (0.0-0.4); BILIRUBIN,TOTAL 0.6 mg/dL (0.2-1.3); BLOOD UREA NITROGEN 22 mg/dL (7-20); CALCIUM 9.3 mg/dL (8.4-10.2); CARBON DIOXIDE 27 mmol/L (22-30); CHLORIDE 108 mmol/L (98-107); CREATINE KINASE 28 U/L (30-135); GLUCOSE 101 mg/dL (75-110); POTASSIUM 4.6 mmol/L (3.6-5.0); TOTAL PROTEIN 6.8 g/dL (6.3-8.2)
[2018-07-27 10:52] LABS: CREATINE KINASE MB 0.33 ng/mL (<4.55)
[2018-07-27 11:00] LABS: TROPONIN I < 0.012 ng/mL
[2018-07-27 13:04] VITALS: BP 167/78
--- NOTE | 2018-07-27 13:17 | EKG REPORT ---
SEVERITY:- BORDERLINE ECG - SINUS RHYTHM LEFT AXIS DEVIATION BORDERLINE R WAVE PROGRESSION, ANTERIOR LEADS : Confirmed by: Gerardo Anderson MD 27-Jul-2018 13:16:15
--- NOTE | 2018-08-01 08:43 | ER Document Report ---
Entered by JENNIFER JIMÉNEZ SCRIBE 07/27/18 1102 Acting as scribe for:ALISHA BHAT MD ED General - General Chief Complaint: Chest Pressure Stated Complaint: BLOOD PRESSURE ISSUE Time Seen by Provider: 07/27/18 10:06 Primary Care Provider: KI JOY MD [Primary Care Provider] - Follow up as needed Information source: Patient Notes: Patient is an 83-year-old female who is only taking Coumadin who presents to the emergency department today with complaints of intermittent hypertension and chest pressure "off and on" for what the patient describes as several months. When asked what changed today to make her decide to come into the emergency department, friend at bedside states "me, I made her come". Patient complains of dyspnea on exertion stating that nearly every time she does any physical activity whether it is making her bed or walking across the room she has to sit down to catch her breath but then she is able to resume activities but frequently has to stop. Patient states this has been an ongoing issue for "years". Patient states the chest pressure on average last between 5 and 10 minutes but sometimes it is much shorter and sometimes a little longer than this. TRAVEL OUTSIDE OF THE [place] IN LAST 30 DAYS: No - Related Data Allergies/Adverse Reactions: No Known Allergies Allergy (Verified 07/27/18 08:48) Past Medical History - General Information source: Patient - Social History Smoking Status: Never Smoker Cigarette use (# per day): No Frequency of alcohol use: None Drug Abuse: None Lives with: Family Family History: Reviewed & Not Pertinent - Past Medical History Cardiac Medical History: Reports: Hx Atrial Fibrillation Past Surgical History: Reports: Hx Hysterectomy Review of Systems - Review of Systems Constitutional: No symptoms reported EENT: No symptoms reported Cardiovascular: See HPI, Chest pain, Other - elevated blood pressure Respiratory: See HPI, Short of breath Gastrointestinal: No symptoms reported Genitourinary: No symptoms reported Female Genitourinary: No symptoms reported Musculoskeletal: No symptoms reported Skin: No symptoms reported Hematologic/Lymphatic: No symptoms reported Neurological/Psychological: No symptoms reported -: Yes All other systems reviewed and negative Physical Exam - Vital signs Vitals: Temp Pulse Resp BP Pulse Ox 97.6 F 91 16 153/73 H 94 07/27/18 08:53 07/27/18 08:53 07/27/18 08:53 07/27/18 08:53 07/27/18 08:53 - Notes Notes: Physical Exam: General: Alert, appears well. HEENT: Normocephalic. Atraumatic. PERRL. Extraocular movements intact. Oropharynx clear. Neck: Supple. Non-tender. Respiratory: No respiratory distress. Clear and equal breath sounds bilaterally. Cardiovascular: Regular rate and rhythm. Abdominal: Normal Inspection. Non-tender. No distension. Normal Bowel Sounds. Back: Non-tender. No deformity or step off. Extremities: Moves all four extremities. Upper extremities: Normal inspection. Normal ROM. Lower extremities: Normal inspection. No edema. Normal ROM. Neurological: Normal cognition. AAOx4. Normal speech. Psychological: Normal affect. Normal Mood. Skin: Warm. Dry. Normal color. Course - Vital Signs Vital signs: Temp Pulse Resp BP Pulse Ox 97.6 F 91 18 169/75 H 98 07/27/18 08:53 07/27/18 08:53 07/27/18 11:01 07/27/18 11:00 07/27/18 11:54 - Laboratory Result Diagrams: 07/27/18 10:04 07/27/18 10:04 Laboratory results interpreted by me: 07/27/18 07/27/18 07/27/18 10:04 10:04 10:04 RDW 16.4 H PT 27.4 H Chloride 108 H BUN 22 H Creatinine 1.44 H Est GFR ( Amer) 42 L Est GFR (Non-Af Amer) 35 L Creatine Kinase 28 L - Diagnostic Test Radiology reviewed: Image reviewed, Reports reviewed - Chest x-ray does not show any acute cardiopulmonary process. - EKG Interpretation by Me EKG shows normal: Sinus rhythm, [place], Intervals, ST-T Waves. abnormal: QRS Complexes - R progression in the anterior leads Rate: Normal - 76 Rhythm: NSR [place]/QRS: Left axis deviation When compared to previous EKG there are: No significant change - Consults Dr. Joy Time consulted: 12:30 Consulted provider: follow-up in office - Start the patient on amlodipine 5 mg nightly. Follow-up in the office next week. Discharge - Discharge Clinical Impression: Chronic renal insufficiency, stage III (moderate), Chest tightness or pressure High blood pressure Qualifiers: Hypertension type: essential hypertension Qualified Code(s): I10 - Essential (primary) hypertension Condition: Stable Disposition: HOME, SELF-CARE Additional Instructions: Take the blood pressure medicine amlodipine as prescribed. Follow-up with Dr. Joy in the office early next week. RETURN TO THE EMERGENCY ROOM IF ANY NEW OR WORSENING SYMPTOMS. Prescriptions: Amlodipine Besylate [Norvasc 5 mg Tablet] 5 mg PO QHS #30 tablet Referrals: KI JOY MD [Primary Care Provider] - Follow up as needed Scribe Attestation: 07/27/18 12:31 I personally performed the services described in the documentation, reviewed and edited the documentation which was dictated to the scribe in my presence, and it accurately records my words and actions. I personally performed the services described in the documentation, reviewed and edited the documentation which was dictated to the scribe in my presence, and it accurately records my words and actions.
== END 2018-07-27 13:14 | disposition home or self-care (01) ==
LOC: ER 08:46
DX: I12.9 Hypertensive chronic kidney disease with stage 1 through stage 4 chronic kidney disease, or unspecified chronic kidney disease (principal); N18.3 Chronic kidney disease, stage 3 (moderate); R07.89 Other chest pain; I48.91 Unspecified atrial fibrillation; Z79.01 Long term (current) use of anticoagulants; R06.09 Other forms of dyspnea
CPT/HCPCS: 36415; 71045; 80053; 82550; 82553; 84484; 85025; 85610; 93005; 93010; 99284

== ENCOUNTER → 2018-08-06 | Outpatient (CLI) | payer MEDICARE, OTHER ==
[2018-08-06 07:46] LABS: INTERNATIONAL RATION (INR) 2.03; PROTHROMBIN TIME 23.9 SEC (11.4-15.4)
[2018-08-06 07:58] LABS: ALANINE AMINOTRANSFERASE 25 U/L (9-52); ALBUMIN 3.8 g/dL (3.5-5.0); ALKALINE PHOSPHATASE 88 U/L (38-126); ANION GAP 6 (5-19); ASPARTATE AMINO TRANSFERASE 24 U/L (14-36); BILIRUBIN,DIRECT 0.1 mg/dL (0.0-0.4); BILIRUBIN,TOTAL 0.6 mg/dL (0.2-1.3); BLOOD UREA NITROGEN 26 mg/dL (7-20); CALCIUM 9.3 mg/dL (8.4-10.2); CARBON DIOXIDE 26 mmol/L (22-30); CHLORIDE 110 mmol/L (98-107); GLUCOSE 130 mg/dL (75-110); POTASSIUM 4.2 mmol/L (3.6-5.0); SODIUM 141.5 mmol/L (137-145); TOTAL PROTEIN 6.1 g/dL (6.3-8.2)
== END ==
LOC: LAB 07:14
PROVIDERS: ATTEND Internal Medicine Cardiovascular Disease
DX: I48.0 Paroxysmal atrial fibrillation (principal); Z79.01 Long term (current) use of anticoagulants; Z79.899 Other long term (current) drug therapy
CPT/HCPCS: 36415; 80048; 80076; 83735; 84443; 85610

== ENCOUNTER → 2018-08-20 | Outpatient (CLI) | payer MEDICARE, OTHER ==
[2018-08-20 07:32] LABS: INTERNATIONAL RATION (INR) 2.27; PROTHROMBIN TIME 26.1 SEC (11.4-15.4)
== END ==
LOC: LAB 07:13
PROVIDERS: ATTEND Internal Medicine Cardiovascular Disease
DX: I48.0 Paroxysmal atrial fibrillation (principal); Z79.01 Long term (current) use of anticoagulants
CPT/HCPCS: 36415; 85610

== ENCOUNTER → 2018-09-03 | Outpatient (CLI) | payer MEDICARE, OTHER ==
[2018-09-03 07:49] LABS: INTERNATIONAL RATION (INR) 2.08; PROTHROMBIN TIME 24.4 SEC (11.4-15.4)
== END ==
LOC: LAB 07:16
PROVIDERS: ATTEND Internal Medicine Cardiovascular Disease
DX: I48.0 Paroxysmal atrial fibrillation (principal); Z79.01 Long term (current) use of anticoagulants
CPT/HCPCS: 36415; 85610

== ENCOUNTER → 2018-09-17 | Outpatient (CLI) | payer MEDICARE, OTHER ==
[2018-09-17 07:36] LABS: INTERNATIONAL RATION (INR) 2.19; PROTHROMBIN TIME 25.4 SEC (11.4-15.4)
== END ==
LOC: LAB 07:13
PROVIDERS: ATTEND Internal Medicine Cardiovascular Disease
DX: I48.0 Paroxysmal atrial fibrillation (principal); Z79.01 Long term (current) use of anticoagulants
CPT/HCPCS: 36415; 85610

== ENCOUNTER → 2018-10-15 | Outpatient (CLI) | payer MEDICARE, OTHER ==
[2018-10-15 07:50] LABS: INTERNATIONAL RATION (INR) 2.15
[2018-10-15 08:09] LABS: ALANINE AMINOTRANSFERASE 17 U/L (9-52); ALBUMIN 3.8 g/dL (3.5-5.0); ALKALINE PHOSPHATASE 88 U/L (38-126); ASPARTATE AMINO TRANSFERASE 28 U/L (14-36); BILIRUBIN,DIRECT 0.1 mg/dL (0.0-0.4); BILIRUBIN,TOTAL 0.8 mg/dL (0.2-1.3); CHOLESTEROL 174.82 mg/dL (0-200); TOTAL PROTEIN 6.3 g/dL (6.3-8.2); TRIGLYCERIDES 63 mg/dL (<150)
[2018-10-15 08:32] LABS: DIRECT LDL 84 mg/dL (<100)
== END ==
LOC: LAB 07:17
PROVIDERS: ATTEND Internal Medicine Cardiovascular Disease
DX: I48.0 Paroxysmal atrial fibrillation (principal); Z79.01 Long term (current) use of anticoagulants; E78.00 Pure hypercholesterolemia, unspecified
CPT/HCPCS: 36415; 80061; 80076; 85610

== ENCOUNTER → 2018-10-29 | Outpatient (CLI) | payer MEDICARE, OTHER ==
[2018-10-29 07:48] LABS: INTERNATIONAL RATION (INR) 1.94; PROTHROMBIN TIME 23.1 SEC (11.4-15.4)
== END ==
LOC: LAB 07:18
PROVIDERS: ATTEND Internal Medicine Cardiovascular Disease
DX: I48.0 Paroxysmal atrial fibrillation (principal); Z79.01 Long term (current) use of anticoagulants
CPT/HCPCS: 36415; 85610

== ENCOUNTER → 2018-11-11 | Outpatient (CLI) | payer MEDICARE, OTHER ==
[2018-11-11 07:37] LABS: INTERNATIONAL RATION (INR) 2.52; PROTHROMBIN TIME 28.4 SEC (11.4-15.4)
== END ==
LOC: LAB 07:16
PROVIDERS: ATTEND Internal Medicine Cardiovascular Disease
DX: I48.0 Paroxysmal atrial fibrillation (principal); Z79.01 Long term (current) use of anticoagulants
CPT/HCPCS: 36415; 85610

== ENCOUNTER → 2018-11-20 | Outpatient (CLI) | payer MEDICARE, OTHER ==
--- NOTE | 2018-11-20 08:16 | RADIOLOGY REPORT (SQ) ---
EXAM DESCRIPTION: CHEST PA/LATERAL COMPLETED DATE/TIME: 11/20/2018 7:44 am REASON FOR STUDY: DYSPNEA, UNSPECIFIED COMPARISON: None. EXAM PARAMETERS: NUMBER OF VIEWS: two views TECHNIQUE: Digital Frontal and Lateral radiographic views of the chest acquired. RADIATION DOSE: NA LIMITATIONS: none FINDINGS: LUNGS AND PLEURA: Mild hyperinflation of the lungs. Bilateral pleural thickening. Mild h yperinflation consistent with emphysema. MEDIASTINUM AND HILAR STRUCTURES: No masses or contour abnormalities. HEART AND VASCULAR STRUCTURES: Heart normal size. No evidence for failure. BONES: No acute findings. HARDWARE: Surgical clips overlying the right hilum and right paratracheal region metallic wires over right paratracheal region. Findings consistent with prior partial pneumonectomy. OTHER: No other significant finding. IMPRESSION: Findings consistent with pulmonary emphysema. Status post partial right pneumonectomy. No significant interval change. TECHNICAL DOCUMENTATION: JOB ID: [id number] 2010 [employer]- All Rights Reserved Reading location - IP/workstation name: [email or web address]
== END ==
LOC: OD 07:10
PROVIDERS: ATTEND Physician Assistant
DX: J43.9 Emphysema, unspecified (principal); R06.00 Dyspnea, unspecified
CPT/HCPCS: 36415; 71046; 83880

== ENCOUNTER → 2018-11-26 | Outpatient (CLI) | payer MEDICARE, OTHER ==
[2018-11-26 07:40] LABS: INTERNATIONAL RATION (INR) 2.09; PROTHROMBIN TIME 24.5 SEC (11.4-15.4)
== END ==
LOC: LAB 07:19
PROVIDERS: ATTEND Internal Medicine Cardiovascular Disease
DX: I48.0 Paroxysmal atrial fibrillation (principal); Z79.01 Long term (current) use of anticoagulants
CPT/HCPCS: 36415; 85610

== ENCOUNTER → 2019-01-21 | Outpatient (CLI) | payer MEDICARE, OTHER ==
[2019-01-21 08:34] LABS: PROTHROMBIN TIME 23.9 SEC (11.4-15.4)
== END ==
LOC: LAB 07:32
PROVIDERS: ATTEND Internal Medicine Cardiovascular Disease
DX: I48.0 Paroxysmal atrial fibrillation (principal); Z79.01 Long term (current) use of anticoagulants
CPT/HCPCS: 36415; 85610

== ENCOUNTER → 2019-02-04 | Outpatient (CLI) | payer MEDICARE, OTHER ==
[2019-02-04 07:40] LABS: INTERNATIONAL RATION (INR) 2.56
== END ==
LOC: LAB 07:20
PROVIDERS: ATTEND Internal Medicine Cardiovascular Disease
DX: I48.0 Paroxysmal atrial fibrillation (principal); Z79.01 Long term (current) use of anticoagulants
CPT/HCPCS: 36415; 85610

== ENCOUNTER → 2019-02-18 | Outpatient (CLI) | payer MEDICARE ==
[2019-02-18 07:43] LABS: INTERNATIONAL RATION (INR) 2.37; PROTHROMBIN TIME 26.3 SEC (11.4-15.4)
== END ==
LOC: LAB 07:17
PROVIDERS: ATTEND Internal Medicine Cardiovascular Disease
DX: I48.0 Paroxysmal atrial fibrillation (principal); Z79.01 Long term (current) use of anticoagulants
CPT/HCPCS: 36415; 85610

== ENCOUNTER → 2019-03-14 | Outpatient (CLI) | payer MEDICARE, OTHER ==
--- NOTE | 2019-03-14 11:40 | WOMENS IMAGING REPORT ---
EXAM DESCRIPTION: 3D SCREENING MAMMO BILAT COMPLETED DATE/TIME: 03/14/2019 7:46 am REASON FOR STUDY: Z12.31 ENCOUNTER FOR SCREENING MAMMOGRAM FOR MALIGNANT NEOPLASM OF BREAST Z12.31 ENCNTR SCREEN MAMMOGRAM FOR MALIGNANT NEOPLASM OF LIA COMPARISON: Multiple since 2014 EXAM PARAMETERS: Standard craniocaudal and mediolateral oblique views of each breast recorded using digital acquisition and breast tomosynthesis. Read with the assistance of CAD. .[facility] - [employer] Candy Catcher Version 9.2 LIMITATIONS: None. FINDINGS: Findings present which are benign by mammographic criteria. No suspicious masses, calcific ations or architectural distortion. Pertinent benign findings: Benign fat necrosis with peripherally calcified oil cysts in the far upper outer quadrant right breast. Benign bilateral breast parenchymal calcifications. Benign mammographic findings may include one or more of the following: Smooth masses, popcorn/rim/coa rse calcifications, asymmetries, post-procedure changes, and lesions with long-standing stability. IMPRESSION: BENIGN MAMMOGRAPHIC FINDINGS. BIRADS 2 BREAST DENSITY: c. The breasts are heterogeneously dense, which may obscure small masses. BIRAD: ASSESSMENT: 2 BENIGN FINDING(S) RECOMMENDATION: ROUTINE SCREENING Please continue yearly bilateral screening mammography/tomosynthesis in March 2020 COMMENT: The patient has been notified of the results by letter per MQSA requirements. Additional no tification policies are in place for contacting patient with suspicious or incomplete findings. Quality ID #225: The [employer] recommends an annual screening mammogram for women aged 40 years or over. This facility utilizes a reminder system to ensure that all patients receive reminder letters, and/or direct phone calls for appointments. This includes reminders for routine scr eening mammograms, diagnostic mammograms, or other Breast Imaging Interventions when appropriate. Th is patient will be placed in the appropriate reminder system. TECHNICAL DOCUMENTATION: FINDING NUMBER: (1) ASSESSMENT: (1) JOB ID: [id number] [employer]- All Rights Reserved Reading location - IP/workstation name: [email or web address]
== END ==
LOC: WI 06:51
PROVIDERS: ATTEND Nurse Practitioner
DX: Z12.31 Encounter for screening mammogram for malignant neoplasm of breast (principal)
CPT/HCPCS: 77063; 77067

== ENCOUNTER → 2019-03-18 | Outpatient (CLI) | payer MEDICARE, OTHER ==
[2019-03-18 07:37] LABS: INTERNATIONAL RATION (INR) 2.36; PROTHROMBIN TIME 26.2 SEC (11.4-15.4)
== END ==
LOC: LAB 07:18
PROVIDERS: ATTEND Internal Medicine Cardiovascular Disease
DX: I48.0 Paroxysmal atrial fibrillation (principal); Z79.01 Long term (current) use of anticoagulants
CPT/HCPCS: 36415; 85610

== ENCOUNTER → 2019-04-07 | Outpatient (CLI) | payer MEDICARE, OTHER ==
[2019-04-07 07:54] LABS: ALBUMIN 3.9 g/dL (3.5-5.0); ALKALINE PHOSPHATASE 88 U/L (38-126); ANION GAP 6 (5-19); ASPARTATE AMINO TRANSFERASE 29 U/L (14-36); BILIRUBIN,DIRECT 0.1 mg/dL (0.0-0.4); BILIRUBIN,TOTAL 0.8 mg/dL (0.2-1.3); BLOOD UREA NITROGEN 29 mg/dL (7-20); CALCIUM 9.1 mg/dL (8.4-10.2); CARBON DIOXIDE 24 mmol/L (22-30); CHLORIDE 109 mmol/L (98-107); GLUCOSE 97 mg/dL (75-110); POTASSIUM 4.7 mmol/L (3.6-5.0); TOTAL PROTEIN 6.5 g/dL (6.3-8.2); TRIGLYCERIDES 59 mg/dL (<150)
[2019-04-07 07:56] LABS: INTERNATIONAL RATION (INR) 2.23; PROTHROMBIN TIME 25.1 SEC (11.4-15.4)
[2019-04-07 08:06] LABS: DIRECT LDL 84 mg/dL (<100)
== END ==
LOC: LAB 07:15
PROVIDERS: ATTEND Internal Medicine Cardiovascular Disease
DX: E78.00 Pure hypercholesterolemia, unspecified (principal); I10 Essential (primary) hypertension; I48.0 Paroxysmal atrial fibrillation; Z79.01 Long term (current) use of anticoagulants; Z79.899 Other long term (current) drug therapy
CPT/HCPCS: 36415; 80048; 80061; 80076; 85610

== ENCOUNTER → 2019-05-12 | Outpatient (CLI) | payer MEDICARE, OTHER ==
[2019-05-12 07:48] LABS: INTERNATIONAL RATION (INR) 2.45; PROTHROMBIN TIME 27.1 SEC (11.4-15.4)
== END ==
LOC: LAB 07:23
PROVIDERS: ATTEND Internal Medicine Cardiovascular Disease
DX: I48.0 Paroxysmal atrial fibrillation (principal); Z79.01 Long term (current) use of anticoagulants
CPT/HCPCS: 36415; 85610

== ENCOUNTER → 2019-06-12 | Outpatient (CLI) | payer MEDICARE, OTHER ==
[2019-06-12 07:36] LABS: INTERNATIONAL RATION (INR) 2.07; PROTHROMBIN TIME 23.6 SEC (11.4-15.4)
== END ==
LOC: LAB 07:10
PROVIDERS: ATTEND Internal Medicine Cardiovascular Disease
DX: I48.0 Paroxysmal atrial fibrillation (principal); Z79.01 Long term (current) use of anticoagulants
CPT/HCPCS: 36415; 85610

== ENCOUNTER → 2019-07-02 | Outpatient (CLI) | payer MEDICARE, OTHER ==
--- NOTE | 2019-07-03 08:33 | WOMENS IMAGING REPORT ---
EXAM DESCRIPTION: 3D DX MAMMO RIGHT UNILAT; U/S BREAST UNILAT LIMITED COMPLETED DATE/TIME: 07/02/2019 8:09 am; 07/02/2019 9:02 am REASON FOR STUDY: N63.11 UNSPECIFIED LUMP IN THE RIGHT BREAST, UPPER OUTER QUADRANT; RT BREAST N63.1 1 N63.11 UNSPECIFIED LUMP IN THE RIGHT BREAST, UPPER OUTER COLLIN COMPARISON: Multiple since 2014 EXAM PARAMETERS: Standard craniocaudal, exaggerated craniocaudad, 90 mediolateral and mediolateral oblique images of the breast recorded using digital acquisition and breast tomosynthesis. Right breast ultrasound was also performed. Read with the assistance of CAD. .[facility] - [employer] Version 9.2 LIMITATIONS: None. FINDINGS: BREAST LATERALITY: Right MASSES: No suspicious masses. CALCIFICATIONS: Fat necrosis with peripherally calcified oil cysts are present in the upper outer collin drant, unchanged over the series of exams. Cyst correlates with the palpable abnormality indicated b y the patient ARCHITECTURAL DISTORTION: None. ASYMMETRY: None noted. OTHER: No other significant findings. Right breast ultrasound: Ultrasound of the right far upper outer quadrant was performed in the area of palpable abnormality. Benign appearing fat necrosis is present with multiple oil cysts, the largest is 8 to 9 mm in diamete r. IMPRESSION: No mammographic or sonographic evidence for malignancy right breast BREAST DENSITY: b. There are scattered areas of fibroglandular density. BIRAD: ASSESSMENT: 2 Benign findings. RECOMMENDATION: RECOMMENDED FOLLOW UP: Please continue yearly bilateral screening mammography/tomosy nthesis in March 2020 SPECIFIC INTERVENTION/IMAGING/CONSULTATION RECOMMENDED:No additional intervention/ imaging/consultati on needed at this time. COMMUNICATION:The negative/benign results were communicated to the patient. COMMENT: The patient has been notified of the results by letter per MQSA requirements. Additional no tification policies are in place for contacting patient with suspicious or incomplete findings. Quality ID #225: The [employer] recommends an annual screening mammogram for women aged 40 years or over. This facility utilizes a reminder system to ensure that all patients receive reminder letters, and/or direct phone calls for appointments. This includes reminders for routine scr eening mammograms, diagnostic mammograms, or other Breast Imaging Interventions when appropriate. Th is patient will be placed in the appropriate reminder system. TECHNICAL DOCUMENTATION: FINDING NUMBER: (1) ASSESSMENT: (1) JOB ID: [id number] [facility] Radiology Doctor [employer]- All Rights Reserved Reading location - IP/workstation name: Unknown
--- NOTE | 2019-07-03 08:33 | WOMENS IMAGING REPORT ---
EXAM DESCRIPTION: 3D DX MAMMO RIGHT UNILAT; U/S BREAST UNILAT LIMITED COMPLETED DATE/TIME: 07/02/2019 8:09 am; 07/02/2019 9:02 am REASON FOR STUDY: N63.11 UNSPECIFIED LUMP IN THE RIGHT BREAST, UPPER OUTER QUADRANT; RT BREAST N63.1 1 N63.11 UNSPECIFIED LUMP IN THE RIGHT BREAST, UPPER OUTER COLLIN COMPARISON: Multiple since 2014 EXAM PARAMETERS: Standard craniocaudal, exaggerated craniocaudad, 90 mediolateral and mediolateral oblique images of the breast recorded using digital acquisition and breast tomosynthesis. Right breast ultrasound was also performed. Read with the assistance of CAD. .[facility] - [employer] Version 9.2 LIMITATIONS: None. FINDINGS: BREAST LATERALITY: Right MASSES: No suspicious masses. CALCIFICATIONS: Fat necrosis with peripherally calcified oil cysts are present in the upper outer collin drant, unchanged over the series of exams. Cyst correlates with the palpable abnormality indicated b y the patient ARCHITECTURAL DISTORTION: None. ASYMMETRY: None noted. OTHER: No other significant findings. Right breast ultrasound: Ultrasound of the right far upper outer quadrant was performed in the area of palpable abnormality. Benign appearing fat necrosis is present with multiple oil cysts, the largest is 8 to 9 mm in diamete r. IMPRESSION: No mammographic or sonographic evidence for malignancy right breast BREAST DENSITY: b. There are scattered areas of fibroglandular density. BIRAD: ASSESSMENT: 2 Benign findings. RECOMMENDATION: RECOMMENDED FOLLOW UP: Please continue yearly bilateral screening mammography/tomosy nthesis in March 2020 SPECIFIC INTERVENTION/IMAGING/CONSULTATION RECOMMENDED:No additional intervention/ imaging/consultati on needed at this time. COMMUNICATION:The negative/benign results were communicated to the patient. COMMENT: The patient has been notified of the results by letter per MQSA requirements. Additional no tification policies are in place for contacting patient with suspicious or incomplete findings. Quality ID #225: The [employer] recommends an annual screening mammogram for women aged 40 years or over. This facility utilizes a reminder system to ensure that all patients receive reminder letters, and/or direct phone calls for appointments. This includes reminders for routine scr eening mammograms, diagnostic mammograms, or other Breast Imaging Interventions when appropriate. Th is patient will be placed in the appropriate reminder system. TECHNICAL DOCUMENTATION: FINDING NUMBER: (1) ASSESSMENT: (1) JOB ID: [id number] [facility]iology [employer]- All Rights Reserved Reading location - IP/workstation name: Unknown
== END ==
LOC: WI 07:37
PROVIDERS: ATTEND Nurse Practitioner
DX: N60.01 Solitary cyst of right breast (principal)
CPT/HCPCS: 76642; 77065; G0279

== ENCOUNTER 2019-07-04 09:39 | Emergency (ER) | payer MEDICARE, OTHER ==
[2019-07-04] MEDS ORDERED: ASPIRIN 81 MG TABLET, CHEWABLE PO ONE (10:53)
--- NOTE | 2019-07-04 10:53 | ER Document Report ---
ED Medical Screen (RME) - General Chief Complaint: Palpitations Stated Complaint: WEAKNESS Time Seen by Provider: 07/04/19 10:48 Primary Care Provider: ELAN DICKSON NP [Primary Care Provider] - Follow up as needed Mode of Arrival: Medic Information source: Patient Notes: 84-year-old female presented to ED for complaint of palpitations whenever she moves. She states she also has generalized weakness and fatigue. She is alert oriented answering questions appropriately. Denies any shortness of breath or chest pain at this time she does have a history of A. fib. States she is on Coumadin amlodipine, amiodarone and Lasix. Sounds are clear at this time heart rate is irregular. I have greeted and performed a rapid initial assessment of this patient. A comprehensive ED assessment and evaluation of the patient, analysis of test results and completion of medical decision making process will be conducted by an additional ED providers. TRAVEL OUTSIDE OF THE [place] IN LAST 30 DAYS: No - Related Data Allergies/Adverse Reactions: No Known Allergies Allergy (Verified 07/27/18 08:48) Past Medical History - Past Medical History Cardiac Medical History: Reports: Hx Atrial Fibrillation Denies: Hx Heart Attack, Hx Hypertension Pulmonary Medical History: Reports: Hx COPD Denies: Hx Asthma Neurological Medical History: Denies: Hx Cerebrovascular Accident, Hx Seizures Renal/ Medical History: Denies: Hx Peritoneal Dialysis GI Medical History: Denies: Hx Hepatitis, Hx Hiatal Hernia, Hx Ulcer Infectious Medical History: Denies: Hx Hepatitis Past Surgical History: Reports: Hx Hysterectomy. Denies: Hx Mastectomy, Hx Open Heart Surgery - MITRAL VALVE REPLACED, Hx Pacemaker Physical Exam - Vital signs Vitals: Temp Pulse Resp BP Pulse Ox 97.9 F 82 16 106/62 96 07/04/19 10:38 07/04/19 10:38 07/04/19 10:38 07/04/19 10:38 07/04/19 10:38 Course - Vital Signs Vital signs: Temp Pulse Resp BP Pulse Ox 97.9 F 82 16 106/62 96 07/04/19 10:38 07/04/19 10:38 07/04/19 10:38 07/04/19 10:38 07/04/19 10:38 Doctor's Discharge - Discharge Referrals: ELAN DICKSON NP [Primary Care Provider] - Follow up as needed
--- NOTE | 2019-07-04 11:50 | RADIOLOGY REPORT (SQ) ---
EXAM DESCRIPTION: CHEST 2 VIEWS COMPLETED DATE/TIME: 07/04/2019 11:28 am REASON FOR STUDY: Palpitations weakness COMPARISON: PA and lateral views of the chest from 11/20/2018 EXAM PARAMETERS: NUMBER OF VIEWS: Two views. TECHNIQUE: An AP view of the chest was obtained.. RADIATION DOSE: NA LIMITATIONS: none FINDINGS: LUNGS AND PLEURA: No consolidation, pleural effusion or pneumothorax. MEDIASTINUM AND HILAR STRUCTURES: No mediastinal or hilar contour abnormality. HEART AND VASCULAR STRUCTURES: The cardiac silhouette and pulmonary vasculature are within normal tello its. BONES: No acute findings. HARDWARE: Stable postoperative findings. OTHER: No other finding. IMPRESSION: No acute cardiopulmonary process. TECHNICAL DOCUMENTATION: JOB ID: [id number] [employer]- All Rights Reserved Reading location - IP/workstation name: [email or web address]
[2019-07-04 12:01] LABS: ABSOLUTE BASOPHILS # (AUTO) 0.1 10^3/uL (0.0-0.2); ABSOLUTE EOSINOPHILS # (AUTO) 0.1 10^3/uL (0.0-0.6); ABSOLUTE LYMPHOCYTES (AUTO) 1.6 10^3/uL (0.5-4.7); ABSOLUTE MONOCYTES (AUTO) 0.8 10^3/uL (0.1-1.4); ABSOLUTE NEUT (AUTO) 6.8 10^3/uL (1.7-8.2); BASOPHILS % (AUTO) 0.6 % (0-2); HEMATOCRIT 40.9 % (36.0-47.0); LYMPHOCYTES % (AUTO) 17.1 % (13-45); MEAN CORPUSCULAR HGB CONC 34.3 g/dL (32.0-36.0); MEAN CORPUSCULAR VOLUME 91 fl (80-97); MONOCYTES % (AUTO) 8.8 % (3-13); PLATELET COUNT 241 10^3/uL (150-450); RED BLOOD COUNT 4.51 10^6/uL (3.72-5.28); SEGMENTED NEUTROPHILS % (AUTO) 72.5 % (42-78); TOTAL CELLS COUNTED % (AUTO) 100 %; WHITE BLOOD COUNT 9.4 10^3/uL (4.0-10.5)
--- NOTE | 2019-07-04 12:21 | ER Document Report ---
ED General - General Chief Complaint: Palpitations Stated Complaint: WEAKNESS Time Seen by Provider: 07/04/19 10:48 Primary Care Provider: ELAN DICKSON NP [Primary Care Provider] - Follow up as needed Mode of Arrival: Medic Information source: Patient Notes: 84-year-old female arrives by POV with her daughter with chief complaint of having several months of heart palpitations which occurs sporadically but worse over the last week and especially over the last 2 to 3 days. Patient saw a new marker machine last week Dr. Ochoa wrote for amiodarone 2 tablets daily x 1 month. Is to be taken down to 1 tablet daily after 1 month. " Patient also takes vitamin D and calcium tablets and also takes diuretics for her bilateral leg edema for several years. Denies any chest pain or cephalgia or cough or cold symptoms or dysuria. She denies any thyroid problems but several years ago was told" she has a knot in her neck which was benign." TRAVEL OUTSIDE OF THE [place] IN LAST 30 DAYS: No - HPI Onset: Other - Times several months but worse over the last week and especially over the last day or 2 Onset/Duration: Worse Quality of pain: No pain Severity: Mild Pain Level: Denies Associated symptoms: None Exacerbated by: Movement Relieved by: Denies Similar symptoms previously: No Recently seen / treated by doctor: No - Related Data Allergies/Adverse Reactions: No Known Allergies Allergy (Verified 07/27/18 08:48) Home Medications: amlodipine. atorvastatin. amiodarone. coumadin. lasix Past Medical History - General Information source: Patient, Relative - Social History Smoking Status: Never Smoker Cigarette use (# per day): No Chew tobacco use (# tins/day): No Smoking Education Provided: No Frequency of alcohol use: None Drug Abuse: None Lives with: Family Family History: Reviewed & Not Pertinent Patient has suicidal ideation: No Patient has homicidal ideation: No - Past Medical History Cardiac Medical History: Reports: Hx Atrial Fibrillation Denies: Hx Heart Attack, Hx Hypertension Pulmonary Medical History: Reports: Hx COPD Denies: Hx Asthma Neurological Medical History: Denies: Hx Cerebrovascular Accident, Hx Seizures Renal/ Medical History: Denies: Hx Peritoneal Dialysis GI Medical History: Denies: Hx Hepatitis, Hx Hiatal Hernia, Hx Ulcer Infectious Medical History: Denies: Hx Hepatitis Past Surgical History: Reports: Hx Hysterectomy, Hx Open Heart Surgery - MITRAL VALVE REPLACED. Denies: Hx Mastectomy, Hx Pacemaker Review of Systems - Review of Systems Constitutional: Malaise EENT: No symptoms reported Cardiovascular: Palpitations Respiratory: No symptoms reported Gastrointestinal: No symptoms reported Genitourinary: No symptoms reported Female Genitourinary: No symptoms reported Musculoskeletal: Leg swelling Skin: No symptoms reported Hematologic/Lymphatic: No symptoms reported Neurological/Psychological: No symptoms reported Physical Exam - Vital signs Vitals: Temp Pulse Resp BP Pulse Ox 97.9 F 82 16 106/62 96 07/04/19 10:38 07/04/19 10:38 07/04/19 10:38 07/04/19 10:38 07/04/19 10:38 Interpretation: Normal - HEENT Head: Normocephalic Eyes: Normal Conjunctiva: Normal Cornea: Normal Extraocular movements intact: Yes Eyelashes: Normal Pupils: PERRL Ears: Normal Sinus: Normal Nasal: Normal Mouth/Lips: Normal Mucous membranes: Normal - Respiratory Respiratory status: No respiratory distress Chest status: Nontender Breath sounds: Normal Chest palpation: Normal - Cardiovascular Rhythm: Regular Heart sounds: Normal auscultation Murmur: No Friction rub: No Bishnu's crunch: No - Abdominal Inspection: Normal Distension: No distension Bowel sounds: Normal Tenderness: Nontender - Back Back: Normal - Extremities General upper extremity: Normal inspection General lower extremity: Edema - Bilateral legs nonpitting to knees - Neurological Neuro grossly intact: Yes Cognition: Normal Orientation: AAOx4 Bala Coma Scale Eye Opening: Spontaneous Bala Coma Scale Verbal: Oriented Bala Coma Scale Motor: Obeys Commands Bala Coma Scale Total: 15 Speech: Normal Cranial nerves: Normal Cerebellar coordination: Normal - Psychological Associated symptoms: Normal affect - Skin Skin Temperature: Warm Skin Moisture: Dry Course - Vital Signs Vital signs: Temp Pulse Resp BP Pulse Ox 97.9 F 82 13 106/62 97 07/04/19 10:38 07/04/19 10:38 07/04/19 12:00 07/04/19 10:38 07/04/19 12:00 - Laboratory Result Diagrams: 07/04/19 11:45 07/04/19 11:45 Laboratory results interpreted by me: 07/04/19 07/04/19 07/04/19 11:45 11:45 11:45 RDW 16.0 H BUN 39 H Creatinine 2.02 H Est GFR ( Amer) 28 L Est GFR (MDRD) Non-Af 23 L Magnesium 2.5 H Urine Nitrite Ur Leukocyte Esterase 07/04/19 12:25 RDW BUN Creatinine Est GFR ( Amer) Est GFR (MDRD) Non-Af Magnesium Urine Nitrite POSITIVE H Ur Leukocyte Esterase MODERATE H - Diagnostic Test Radiology reviewed: Image reviewed, Reports reviewed - EKG Interpretation by Me EKG shows normal: Sinus rhythm Rate: Normal Rhythm: NSR Critical Care Note - Critical Care Note Total time excluding time spent on procedures (mins): 90 Comments: I discussed these findings with the patient and she is aware of her magnesium level and kidney problem and UTI advised her to follow-up for recheck of both urine in 1 week and blood test within the next month Discharge - Discharge Clinical Impression: Magnesium disorder, Renal insufficiency, mild Arrhythmia Qualifiers: Arrhythmia type: unspecified cardiac arrhythmia Qualified Code(s): I49.9 - Cardiac arrhythmia, unspecified UTI (urinary tract infection) Qualifiers: Urinary tract infection type: site unspecified Hematuria presence: without hematuria Qualified Code(s): N39.0 - Urinary tract infection, site not specified Condition: Good Disposition: HOME, SELF-CARE Instructions: Urinary Tract Infection ([facility]) Additional Instructions: Follow-up with personal doctor this week and with marker machine and take medicines as directed encourage fluids and try to keep water under 1 quart per day. Prescriptions: Levofloxacin [Levaquin 750 mg Tablet] 500 mg PO DAILY #10 tablet Referrals: ELAN DICKSON NP [Primary Care Provider] - Follow up as needed
[2019-07-04 12:28] LABS: ALBUMIN 4.1 g/dL (3.5-5.0); ALKALINE PHOSPHATASE 79 U/L (38-126); ANION GAP 9 (5-19); ASPARTATE AMINO TRANSFERASE 29 U/L (14-36); BILIRUBIN,DIRECT 0.2 mg/dL (0.0-0.4); BILIRUBIN,TOTAL 0.8 mg/dL (0.2-1.3); BLOOD UREA NITROGEN 39 mg/dL (7-20); CALCIUM 9.7 mg/dL (8.4-10.2); CARBON DIOXIDE 27 mmol/L (22-30); CHLORIDE 103 mmol/L (98-107); GLUCOSE 102 mg/dL (75-110); POTASSIUM 4.3 mmol/L (3.6-5.0); TOTAL PROTEIN 6.8 g/dL (6.3-8.2)
--- NOTE | 2019-07-04 13:01 | EKG REPORT ---
SEVERITY:- BORDERLINE ECG - SINUS RHYTHM BORDERLINE LEFT AXIS DEVIATION BORDERLINE R WAVE PROGRESSION, ANTERIOR LEADS : Confirmed by: Cipriano Franco 04-Jul-2019 13:01:02
[2019-07-04 13:12] LABS: APPEARANCE,URINE SLIGHTLY-CLOUDY; BILIRUBIN,URINE NEGATIVE (NEGATIVE); COLOR,URINE YELLOW; GLUCOSE, URINE NEGATIVE (NEGATIVE); KETONES,URINE NEGATIVE (NEGATIVE); LEUKOCYTE ESTERASE,URINE MODERATE (NEGATIVE); NITRITE,URINE POSITIVE (NEGATIVE); PROTEIN,URINE NEGATIVE (NEGATIVE); UROBILINOGEN,URINE NEGATIVE mg/dL (<2.0)
[2019-07-04] MEDS ORDERED: LEVOFLOXACIN 500 MG TABLET PO ONE (14:12)
[2019-07-04 14:28] VITALS: BP 133/58
== END 2019-07-04 14:32 | disposition home or self-care (01) ==
LOC: ER 09:39
DX: I48.91 Unspecified atrial fibrillation (principal); Z79.01 Long term (current) use of anticoagulants; N39.0 Urinary tract infection, site not specified; E83.40 Disorders of magnesium metabolism, unspecified; R00.2 Palpitations; R53.81 Other malaise; J44.9 Chronic obstructive pulmonary disease, unspecified; R60.0 Localized edema; Z79.899 Other long term (current) drug therapy; N28.9 Disorder of kidney and ureter, unspecified
CPT/HCPCS: 93005; 99291; 99292; 36415; 83735; 84443; 85025; 80053; 81001; 84484; 71046; 93010; A9270 ×2

== ENCOUNTER 2019-07-22 07:35 | Emergency (ER) | payer MEDICARE, OTHER ==
--- NOTE | 2019-07-22 11:40 | RADIOLOGY REPORT (SQ) ---
EXAM DESCRIPTION: FOREARM RIGHT COMPLETED DATE/TIME: 07/22/2019 11:10 am REASON FOR STUDY: eval for trauma after a fall COMPARISON: None. NUMBER OF VIEWS: Two views. TECHNIQUE: Two radiographic images acquired of the right forearm, including elbow and wrist in at le ast one projection. LIMITATIONS: None. FINDINGS: MINERALIZATION: Normal. BONES: No acute fracture. No worrisome bone lesions. SOFT TISSUES: Soft tissue laceration dorsal ulnar aspect distal right forearm. No radiopaque foreign body. OTHER: No other significant finding. IMPRESSION: No fracture or radiopaque foreign body. TECHNICAL DOCUMENTATION: JOB ID: [id number] 2010 [employer]- All Rights Reserved Reading location - IP/workstation name: [email or web address]
[2019-07-22 12:30] VITALS: BP 122/49
--- NOTE | 2019-07-22 12:46 | ER Document Report ---
ED General - General Chief Complaint: Skin Tear(s) Stated Complaint: FALL/ARM PAIN Time Seen by Provider: 07/22/19 10:37 Primary Care Provider: ELAN DICKSON NP [Primary Care Provider] - Follow up as needed Mode of Arrival: Ambulatory Information source: Patient TRAVEL OUTSIDE OF THE [place] IN LAST 30 DAYS: No - HPI Onset: Just prior to arrival Onset/Duration: Sudden Quality of pain: Pressure Severity: Mild Pain Level: 1 Associated symptoms: Other - right arm swelling, bruising and bleeding from skin tears Exacerbated by: Other - palpation of her right arm Relieved by: Denies Similar symptoms previously: No Recently seen / treated by doctor: No Notes: 84 year old female with a history of AFib on anticoagulation, Mitral Valve Replacement, and COPD here for bleeding from her right forearm due to skin tears. The patient tripped and landed on her right arm causing multiple skin tears. The patient held pressure with towel but she was unable to stop the bleeding so she came to the ER. The patient denies hitting her head, headache, or pain anywhere else. Nursing notes said the patient had some hip pain but she is denying this to me and she can move her legs in all directions and ambulate without a problem. - Related Data Allergies/Adverse Reactions: No Known Allergies Allergy (Verified 07/22/19 08:07) Home Medications: Coumadin Past Medical History - General Information source: Patient - Social History Smoking Status: Former Smoker Chew tobacco use (# tins/day): No Frequency of alcohol use: Occasional Drug Abuse: None Lives with: Family Family History: Reviewed & Not Pertinent Patient has suicidal ideation: No Patient has homicidal ideation: No - Past Medical History Cardiac Medical History: Reports: Hx Atrial Fibrillation Denies: Hx Heart Attack, Hx Hypertension Pulmonary Medical History: Reports: Hx COPD Denies: Hx Asthma Neurological Medical History: Denies: Hx Cerebrovascular Accident, Hx Seizures Renal/ Medical History: Denies: Hx Peritoneal Dialysis GI Medical History: Denies: Hx Hepatitis, Hx Hiatal Hernia, Hx Ulcer Infectious Medical History: Denies: Hx Hepatitis Past Surgical History: Reports: Hx Hysterectomy, Hx Open Heart Surgery - MITRAL VALVE REPLACED. Denies: Hx Mastectomy, Hx Pacemaker Review of Systems - Review of Systems Constitutional: No symptoms reported EENT: No symptoms reported Cardiovascular: No symptoms reported Respiratory: No symptoms reported Gastrointestinal: No symptoms reported Genitourinary: No symptoms reported Female Genitourinary: No symptoms reported Musculoskeletal: Other - bruising of right forearm Skin: Other - Multiple skin tears of the right forearm with bleeding/oozing. Diffuse brusing of the right forearm. Hematologic/Lymphatic: No symptoms reported Neurological/Psychological: No symptoms reported Physical Exam - Vital signs Vitals: Temp Pulse Resp BP Pulse Ox 97.9 F 81 16 114/51 L 96 07/22/19 07:48 07/22/19 07:48 07/22/19 07:48 07/22/19 07:48 07/22/19 07:48 - Notes Notes: GENERAL: Well-appearing, well-nourished and in no acute distress. HEAD: Atraumatic, normocephalic. EYES: Pupils equal round and reactive to light, extraocular movements intact, sclera anicteric, conjunctiva are normal. ENT: Nares patent, oropharynx clear without exudates. Moist mucous membranes. NECK: Normal range of motion, supple without lymphadenopathy or JVD. LUNGS: Breath sounds clear to auscultation bilaterally and equal. No wheezes rales or rhonchi. HEART: Regular rate and rhythm without murmurs, rubs or gallops. ABDOMEN: Soft, nontender, normoactive bowel sounds. No guarding, no rebound. No masses appreciated. EXTREMITIES: Normal range of motion, no pitting or edema. No clubbing or cyanosis. NEUROLOGICAL: Cranial nerves II through XII grossly intact. Normal speech, normal gait. PSYCH: Normal mood, normal affect. SKIN: Right forearm bruising and swelling with mutliple skin tears which are bleeding and oozing. Course - Re-evaluation Re-evalutation: 07/22/19 19:25 The patient fell inside her house causing several right forearm skin tears. There are no injuries amendable to suture or glue repair. Patient had wounds dresed with antibiotic ointment and nonstick gauze by nursing. Patient told to dress her wounds in the same way at home. Patient had no head trauma and she has no headaches. Patient told to follow up with her PCP for wound checks. Xray of forearm showed no fractures. - Vital Signs Vital signs: Temp Pulse Resp BP Pulse Ox 97.4 F 65 16 122/49 L 98 07/22/19 12:29 07/22/19 12:29 07/22/19 12:29 07/22/19 12:29 07/22/19 12:29 Discharge - Discharge Clinical Impression: Skin tear Contusion Qualifiers: Encounter type: initial encounter Contusion area: forearm Laterality: right Qualified Code(s): S50.11XA - Contusion of right forearm, initial encounter Condition: Stable Disposition: HOME, SELF-CARE Instructions: Contusion ([facility]), Skin Tear ([facility]) Additional Instructions: Keep your wounds covered in antibiotic ointment and wrapped in a pressure dressing until they are completely healed. Use nonstick gauze on your wounds. Tell your doctor about your ER visit today. You had no fractures on Xray of your arm. Referrals: ELAN DICKSON NP [Primary Care Provider] - Follow up as needed
== END 2019-07-22 12:55 | disposition home or self-care (01) ==
LOC: ER 07:35
DX: S50.11XA Contusion of right forearm, initial encounter (principal); S51.811A Laceration without foreign body of right forearm, initial encounter; W01.0XXA Fall on same level from slipping, tripping and stumbling without subsequent striking against object, initial encounter; I48.91 Unspecified atrial fibrillation; J44.9 Chronic obstructive pulmonary disease, unspecified; Z95.2 Presence of prosthetic heart valve; Z79.01 Long term (current) use of anticoagulants; Z90.710 Acquired absence of both cervix and uterus
CPT/HCPCS: 99283

== ENCOUNTER 2020-04-30 11:14 | Inpatient (IN) | payer MEDICARE, OTHER ==
[2020-04-30 11:57] LABS: HEMATOCRIT 34.9 % (36.0-47.0); HEMOGLOBIN 11.7 g/dL (12.0-15.5); MEAN CORPUSCULAR HEMOGLOBIN 30.5 pg (27.0-33.4); MEAN CORPUSCULAR HGB CONC 33.5 g/dL (32.0-36.0); MEAN CORPUSCULAR VOLUME 91 fl (80-97); PLATELET COUNT 307 10^3/uL (150-450); RED BLOOD COUNT 3.84 10^6/uL (3.72-5.28); RED CELL DISTRIBUTION WIDTH 18.3 % (11.5-14.0); WHITE BLOOD COUNT 15.4 10^3/uL (4.0-10.5)
[2020-04-30 12:13] LABS: ALBUMIN 3.4 g/dL (3.5-5.0); ALKALINE PHOSPHATASE 93 U/L (38-126); ANION GAP 9 (5-19); ASPARTATE AMINO TRANSFERASE 526 U/L (14-36); BILIRUBIN,DIRECT 1.2 mg/dL (0.0-0.4); BILIRUBIN,TOTAL 1.7 mg/dL (0.2-1.3); BLOOD UREA NITROGEN 64 mg/dL (7-20); CALCIUM 9.4 mg/dL (8.4-10.2); CARBON DIOXIDE 26 mmol/L (22-30); CHLORIDE 102 mmol/L (98-107); CREATINE KINASE 32 U/L (30-135); GLUCOSE 116 mg/dL (75-110); POTASSIUM 4.4 mmol/L (3.6-5.0); TOTAL PROTEIN 5.8 g/dL (6.3-8.2)
[2020-04-30 12:34] LABS: ABSOLUTE LYMPHOCYTES# (MANUAL) 0.9 10^3/uL (0.5-4.7); ABSOLUTE MONOCYTES # (MANUAL) 0.8 10^3/uL (0.1-1.4); BASOPHILS % (MANUAL) 0 % (0-2); EOSINOPHILS % (MANUAL) 1 % (0-6); LYMPHOCYTES % (MANUAL) 6 % (13-45); MONOCYTES % (MANUAL) 5 % (3-13); PLATELET COMMENT ADEQUATE; SEGMENTED NEUTROPHILS % (MAN) 88 % (42-78); TOTAL CELLS COUNTED 100
[2020-04-30 12:35] LABS: BURR CELLS 1+; OVALOCYTES 1+; POIKILOCYTOSIS 1+
[2020-04-30 12:36] LABS: CREATINE KINASE MB 0.37 ng/mL (<4.55)
[2020-04-30 12:37] LABS: TROPONIN I < 0.012 ng/mL
[2020-04-30 13:24] LABS: INTERNATIONAL RATION (INR) 8.07
[2020-04-30] MEDS ORDERED: NORMAL SALINE 1000 ML 1,000 ML IV ONE ×2 (13:34→15:26)
[2020-04-30] MEDS ORDERED: PHYTONADIONE INJ 10 MG/1 ML AMPULE PO ONE (13:37)
--- NOTE | 2020-04-30 13:41 | EKG REPORT ---
SEVERITY:- ABNORMAL ECG - SINUS RHYTHM LEFT AXIS DEVIATION BORDERLINE R WAVE PROGRESSION, ANTERIOR LEADS : Confirmed by: Gerardo Anderson MD 30-Apr-2020 13:39:42
--- NOTE | 2020-04-30 14:38 | ER Document Report ---
Entered by JENNIFER JIMÉNEZ SCRIBE 04/30/20 [id number] Acting as scribe for:ALISHA BHAT MD ED General - General Chief Complaint: Syncope Stated Complaint: SYNCOPE Time Seen by Provider: 04/30/20 13:23 Mode of Arrival: Ambulatory Information source: Patient Notes: This 85 year old female patient presents to the emergency department today with complaints of a syncopal event that occurred just prior to arrival. The patient denies any injury. The patient is on Coumadin. Patient mentions that she has not had a bowel movement in a few days and she thinks that she is constipated. When I saw the patient's lab work with the extremely high liver function tests, I inquired about abdominal pain and the patient said no, but she had had some sharp pain that went across her chest a week ago. TRAVEL OUTSIDE OF THE [place] IN LAST 30 DAYS: No - Related Data Allergies/Adverse Reactions: No Known Allergies Allergy (Verified 07/22/19 08:07) Past Medical History - General Information source: Patient - Social History Smoking Status: Unknown if Ever Smoked Cigarette use (# per day): No Frequency of alcohol use: None Drug Abuse: None Lives with: Family Family History: Reviewed & Not Pertinent Patient has homicidal ideation: No - Past Medical History Cardiac Medical History: Reports: Hx Atrial Fibrillation Pulmonary Medical History: Reports: Hx COPD Past Surgical History: Reports: Hx Hysterectomy, Hx Open Heart Surgery - MITRAL VALVE REPLACED Review of Systems - Review of Systems Constitutional: No symptoms reported EENT: No symptoms reported Cardiovascular: See HPI, Syncope Respiratory: No symptoms reported Gastrointestinal: See HPI, Constipation Genitourinary: No symptoms reported Female Genitourinary: No symptoms reported Musculoskeletal: No symptoms reported Skin: No symptoms reported Hematologic/Lymphatic: No symptoms reported Neurological/Psychological: No symptoms reported -: Yes All other systems reviewed and negative Physical Exam - Vital signs Vitals: Resp Pulse Ox 24 H 99 04/30/20 11:27 04/30/20 11:27 - Notes Notes: Physical Exam: General: Alert. HEENT: Normocephalic. Atraumatic. PERRL. Extraocular movements intact. Oropharynx clear. Neck: Supple. Non-tender. Respiratory: No respiratory distress. Clear and equal breath sounds bilaterally. Cardiovascular: Regular rate and rhythm. Abdominal: Normal Inspection. Non-tender. No distension. Normal Bowel Sounds. Rectal: Light brown stool. Moderate amount of firm stool in the rectal vault. Genitourinary: 500 mL of dark urine drained from bladder. Back: No gross abnormalities. Extremities: Moves all four extremities. Upper extremities: Normal inspection. Normal ROM. Lower extremities: Normal inspection. No edema. Normal ROM. Neurological: Normal cognition. AAOx4. Normal speech. Psychological: Normal affect. Normal Mood. Skin: Warm. Dry. Normal color. Course - Vital Signs Vital signs: Temp Pulse Resp BP Pulse Ox 98.4 F 79 16 120/47 L 100 05/01/20 23:04 05/02/20 02:00 05/01/20 23:04 05/01/20 23:04 05/01/20 23:04 - Laboratory Result Diagrams: 05/02/20 05:45 05/01/20 04:42 Laboratory results interpreted by me: 04/30/20 04/30/20 04/30/20 11:36 11:36 11:36 WBC 15.4 H Hgb 11.7 L Hct 34.9 L RDW 18.3 H Seg Neuts % (Manual) 88 H Lymphocytes % (Manual) 6 L Abs Neuts (Manual) 13.6 H PT INR Sodium 136.9 L BUN 64 H Creatinine 3.08 H Est GFR ( Amer) 17 L Est GFR (MDRD) Non-Af 14 L Glucose 116 H Magnesium 2.5 H Total Bilirubin 1.7 H Direct Bilirubin 1.2 H AST 526 H ALT 447 H Total Protein 5.8 L Albumin 3.4 L Ur Leukocyte Esterase 04/30/20 04/30/20 12:40 13:36 WBC Hgb Hct RDW Seg Neuts % (Manual) Lymphocytes % (Manual) Abs Neuts (Manual) PT 66.0 H* INR 8.07 H* Sodium BUN Creatinine Est GFR ( Amer) Est GFR (MDRD) Non-Af Glucose Magnesium Total Bilirubin Direct Bilirubin AST ALT Total Protein Albumin Ur Leukocyte Esterase TRACE H - Diagnostic Test Radiology reviewed: Image reviewed, Reports reviewed - Chest x-ray shows some hyperlucency with no acute changes. CT scan of the head does not show acute abnormality. - EKG Interpretation by Me EKG shows normal: Sinus rhythm, [place], Intervals, ST-T Waves. abnormal: QRS Complexes - R wave progression in the anterior leads Rate: Normal - 80 Rhythm: NSR [place]/QRS: Left axis deviation When compared to previous EKG there are: No significant change - Consults Dr. Mixon Time consulted: 16:44 Consulted provider: will come to ER Critical Care Note - Critical Care Note Total time excluding time spent on procedures (mins): 40 Comments: At least 40 minutes spent evaluating patient, reviewing present lab work and past lab work and prior hospitalizations. Patient was hypotensive with acute on chronic renal failure, excessively anticoagulated, had a syncope and fall, and is elderly. Emergency management of hypotension and excessive anticoagulation was instituted, several reevaluations to gauge the patient's response to treatment. Time spent talking with the hospitalist service to get the patient admitted to the hospital. Discharge - Discharge Clinical Impression: Excessive anticoagulation, Dehydration, Elevated LFTs Hypotension Qualifiers: Hypotension type: unspecified hypotension type Qualified Code(s): I95.9 - Hypotension, unspecified [id number] renal failure Qualifiers: Acute renal failure type: unspecified Chronic kidney disease stage: stage 4 (severe) Qualified Code(s): N17.9 - Acute kidney failure, unspecified Leukocytosis Qualifiers: Leukocytosis type: other Qualified Code(s): D72.828 - Other elevated white blood cell count Anemia Qualifiers: Anemia type: unspecified type Qualified Code(s): D64.9 - Anemia, unspecified Condition: Fair Disposition: ADMITTED OBSERVATION Admitting Provider: Oral (Hospitalist) Unit Admitted: Telemetry I personally performed the services described in the documentation, reviewed and edited the documentation which was dictated to the scribe in my presence, and it accurately records my words and actions.
[2020-04-30 14:46] LABS: APPEARANCE,URINE SLIGHTLY-CLOUDY; BILIRUBIN,URINE NEGATIVE (NEGATIVE); COLOR,URINE YELLOW; GLUCOSE, URINE NEGATIVE (NEGATIVE); KETONES,URINE NEGATIVE (NEGATIVE); LEUKOCYTE ESTERASE,URINE TRACE (NEGATIVE); NITRITE,URINE NEGATIVE (NEGATIVE); PROTEIN,URINE NEGATIVE (NEGATIVE); URINE SPECIFIC GRAVITY 1.013; UROBILINOGEN,URINE NEGATIVE mg/dL (<2.0)
--- NOTE | 2020-04-30 15:17 | RADIOLOGY REPORT (SQ) ---
EXAM DESCRIPTION: CHEST SINGLE VIEW IMAGES COMPLETED DATE/TIME: 04/30/2020 3:05 pm REASON FOR STUDY: Hypotension, leukocytosis COMPARISON: Chest films 11/20/2018, 07/04/2019 EXAM PARAMETERS: NUMBER OF VIEWS: One view. TECHNIQUE: Single frontal radiographic view of the chest acquired. RADIATION DOSE: NA LIMITATIONS: None. FINDINGS: LUNGS AND PLEURA: Lungs are hyperlucent. No opacities, masses or pneumothorax. No pleura l effusion. MEDIASTINUM AND HILAR STRUCTURES: No masses. Contour normal. HEART AND VASCULAR STRUCTURES: No cardiomegaly. 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 HARDWARE: None in the chest. OTHER: No other significant finding. IMPRESSION: No acute changes TECHNICAL DOCUMENTATION: JOB ID: [id number] 2010 [employer]- All Rights Reserved Reading location - IP/workstation name: [email or web address]
[2020-04-30] MEDS ORDERED: CEFTRIAXONE 1 GM/D5W RTU 1 GM/50 ML RTUPB IV ONE (15:26)
--- NOTE | 2020-04-30 17:26 | RADIOLOGY REPORT (SQ) ---
EXAM DESCRIPTION: CT HEAD WITHOUT IMAGES COMPLETED DATE/TIME: 04/30/2020 5:04 pm REASON FOR STUDY: Syncope, excessive anticoagulation COMPARISON: None. TECHNIQUE: Axial images acquired through the brain without intravenous contrast. Images reviewed wi th bone, brain and subdural windows. Additional sagittal and coronal reconstructions were generated. Images stored on PACS. All CT scanners at this facility use dose modulation, iterative reconstruction, and/or weight based d osing when appropriate to reduce radiation dose to as low as reasonably achievable (ALARA). [facility]: Dose Right [facility]: CareDose [facility]: Dose Right [facility]: Teradose 4D [facility]: [employer] RADIATION DOSE: CT Rad equipment meets quality standard of care and radiation dose reduction techniq ues were employed. CTDIvol: 53.2 mGy. DLP: 991 mGy-cm. mGy. LIMITATIONS: None. FINDINGS: VENTRICLES: Normal size and contour. CEREBRUM: No masses. No hemorrhage. No midline shift. No evidence for acute infarction. Normal gra y/white matter differentiation. No areas of low density in the white matter. CEREBELLUM: No masses. No hemorrhage. No alteration of density. No evidence for acute infarction. EXTRAAXIAL SPACES: No fluid collections. No masses. ORBITS AND GLOBE: No intra- or extraconal masses. Normal contour of globe without masses. CALVARIUM: No fracture. PARANASAL SINUSES: No fluid or mucosal thickening. SOFT TISSUES: No mass or hematoma. OTHER: No other significant finding. IMPRESSION: NORMAL BRAIN CT WITHOUT CONTRAST. EVIDENCE OF ACUTE STROKE: NO. COMMENT: Quality ID # [id number]: Final reports with documentation of one or more dose reduction techniques (e.g., Automated exposure control, adjustment of the mA and/or kV according to patient size, use of iterative reconstruction technique) TECHNICAL DOCUMENTATION: JOB ID: [id number] 2010 [employer] ([employer])- All Rights Reserved Reading location - IP/workstation name: [email or web address]
[2020-04-30] MEDS ORDERED: ONDANSETRON 4 MG TAB.RAPDIS PO PRN (18:35)
--- NOTE | 2020-04-30 20:14 | PDOC H&P ---
History of Present Illness Admission Date/PCP: 04/30/20 16:57 ELAN DICKSON NP Patient complains of: syncope History of Present Illness: JJ MCKEON is a 85 year old female, PMH of atrial fibrillation on warfarin, mitral valve replacement, HLD, HTN, COPD, who was brought to the ED due to syncope. She was apparently using her walker and was walking towards a chair and the next thing she remembers is waking up on the floor on her side. She denied any pre syncopal symptoms like palpitation, headache, diaphoresis, chest pain. She did not have any bowel/bladder incontinence. Her syncopal episode was unwitnessed and she is not sure how long she was out but she stated it couldn't have been more than a few minutes. She called EMS and she was subsequently taken to the ED. She denied any recent change to her medications. She did admit to have previous fall episodes and being unsteady on her feet. She denied any recent illness, no cough, no diarrhea. She has poor appetite and poor oral intake which has been going on for months. In the ED, BP 93/44, HR 74, RR 23, afebrile, O2 sat 96% on RA. CBC showed a WBC count of 15.4, Hgb 11.7. CMP showed a crea of 3.08 from 2.02 in June. troponin negative. EKG showed sinus rhythm, LAD, borderline r wave progression. She was given 2L IV bolus. Hospitalist service was asked to evaluate her for admission Past Medical History Cardiac Medical History: Reports: Atrial Fibrillation, Congestive Heart Failure, Heart Murmur, Other - mitral valve replacement Denies: Myocardial Infarction, Hypertension Pulmonary Medical History: Reports: Chronic Obstructive Pulmonary Disease (COPD) Denies: Asthma EENT Medical History: Reports: None Neurological Medical History: Reports: None Denies: Seizures Endocrine Medical History: Reports: None Renal/ Medical History: Reports: Chronic Kidney Disease Malignancy Medical History: Reports: None GI Medical History: Denies: Hepatitis, Hiatal Hernia Musculoskeltal Medical History: Reports: None Hematology: Denies: Anemia, Sickle Cell Disease Past Surgical History Past Surgical History: Reports: Hysterectomy Denies: Amputation, Mastectomy, Pacemaker Social History Lives with: Family Smoking Status: Never Smoker Frequency of Alcohol Use: None Hx Recreational Drug Use: No Family History Family History: Reviewed & Not Pertinent Parental Family History Reviewed: Yes Children Family History Reviewed: Yes Sibling(s) Family History Reviewed.: Yes Medication/Allergy Home Medications: Amiodarone HCl [Cordarone 200 mg Tablet] 200 mg PO DAILY 07/05/17 Furosemide 20 mg PO DAILY 07/05/17 Warfarin Sodium [Coumadin 2 mg Tablet] 2 mg PO SUTUWETHSA@1000 07/05/17 Amlodipine Besylate/Benazepril [Amlodipine-Benazepril 2.5-10] 1 each PO QHS 04/30/20 Calcium Carbonate [Os-Neel 500 mg Tablet (Oyster-Shell)] 500 mg PO DAILY 04/30/20 Cholecalciferol (Vitamin D3) [Vitamin D3 1000 Unit Tablet] 1,000 unit PO DAILY 04/30/20 Cyanocobalamin (Vitamin B-12) [Vitamin B-12 1000 Mcg Tablet] 1,000 mcg PO DAILY 04/30/20 Warfarin Sodium [Jantoven 1 mg Tablet] 1 mg PO MOFR@1000 04/30/20 Allergies/Adverse Reactions: No Known Allergies Allergy (Verified 07/22/19 08:07) Review of Systems Constitutional: PRESENT: weakness Eyes: ABSENT: visual disturbances Ears: ABSENT: hearing changes Cardiovascular: ABSENT: chest pain, dyspnea on exertion, edema, orthropnea, palpitations Respiratory: ABSENT: dyspnea Gastrointestinal: ABSENT: abdominal pain, bloating, coffee ground emesis, hematochezia Genitourinary: ABSENT: dysuria Musculoskeletal: ABSENT: joint swelling Neurological: PRESENT: dizziness, frequent falls, syncope Physical Exam Vital Signs: Temp Pulse Resp BP Pulse Ox 97.8 F 18 90/37 L 95 04/30/20 16:00 04/30/20 19:20 04/30/20 19:20 04/30/20 19:20 Intake & Output 04/29/20 04/30/20 05/01/20 06:59 06:59 06:59 Intake Total 2050 Output Total 500 Balance 1550 General appearance: PRESENT: no acute distress, cooperative Head exam: PRESENT: atraumatic, normocephalic Eye exam: PRESENT: EOMI, PERRLA Ear exam: PRESENT: normal external ear exam Mouth exam: PRESENT: moist Neck exam: PRESENT: full ROM Respiratory exam: PRESENT: clear to auscultation kay, symmetrical, unlabored Cardiovascular exam: PRESENT: RRR, +S1, +S2 Pulses: PRESENT: +2 pedal pulses bilateral GI/Abdominal exam: PRESENT: Rivera's sign, soft. ABSENT: rebound, tenderness Extremities exam: PRESENT: full ROM Musculoskeletal exam: PRESENT: full ROM Neurological exam: PRESENT: alert, awake, oriented to person, oriented to place, oriented to time, oriented to situation Psychiatric exam: PRESENT: normal mood Skin exam: PRESENT: normal color Results Laboratory Results: 04/30/20 11:36 04/30/20 11:36 04/30/20 04/30/20 04/30/20 11:36 11:36 11:36 WBC 15.4 H RBC 3.84 Hgb 11.7 L Hct 34.9 L MCV 91 MCH 30.5 MCHC 33.5 RDW 18.3 H Plt Count 307 Seg Neutrophils % Not Reportable Sodium 136.9 L Potassium 4.4 Chloride 102 Carbon Dioxide 26 Anion Gap 9 BUN 64 H Creatinine 3.08 H Est GFR ( Amer) 17 L Glucose 116 H Lactic Acid Calcium 9.4 Magnesium 2.5 H Ferritin 141.00 Total Bilirubin 1.7 H AST 526 H Alkaline Phosphatase 93 Total Protein 5.8 L Albumin 3.4 L Lipase Urine Color Urine Appearance Urine pH Ur Specific Townsend Urine Protein Urine Glucose (UA) Urine Ketones Urine Blood Urine Nitrite Ur Leukocyte Esterase Urine WBC (Auto) Urine RBC (Auto) 04/30/20 04/30/20 04/30/20 11:36 13:36 15:36 WBC RBC Hgb Hct MCV MCH MCHC RDW Plt Count Seg Neutrophils % Sodium Potassium Chloride Carbon Dioxide Anion Gap BUN Creatinine Est GFR ( Amer) Glucose Lactic Acid 0.9 Calcium Magnesium Ferritin Total Bilirubin AST Alkaline Phosphatase Total Protein Albumin Lipase 118.0 Urine Color YELLOW Urine Appearance SLIGHTLY-CLOUDY Urine pH 5.0 Ur Specific [place] 1.013 Urine Protein NEGATIVE Urine Glucose (UA) NEGATIVE Urine Ketones NEGATIVE Urine Blood NEGATIVE Urine Nitrite NEGATIVE Ur Leukocyte Esterase TRACE H Urine WBC (Auto) 4 Urine RBC (Auto) 0 04/30/20 04/30/20 11:36 11:36 Creatine Kinase 32 CK-MB (CK-2) 0.37 Troponin I < 0.012 Impressions: Chest X-Ray 04/30/20 14:52 IMPRESSION: No acute changes Head CT 04/30/20 16:48 IMPRESSION: NORMAL BRAIN CT WITHOUT CONTRAST. EVIDENCE OF ACUTE STROKE: NO. Assessment and Plan - Diagnosis (1) Syncope due to orthostatic hypotension Is this a current diagnosis for this admission?: Yes Plan: - brought in due to syncopal episode, unwitnessed - noted ot be hypotensive in the ED 90s oevr 40s - EKG sinus rhythm - Troponin negative - lactic acid normal - CT head negative - syncope likely from hypotension, less liekly cardiogenic or septic - will hold lasix and amlodipine for now - echo pending - gentle hydration - monitor in tele (2) Supratherapeutic INR Is this a current diagnosis for this admission?: Yes Plan: - on warfarin due to A.fib and mitral valve repair - INR 8 no bleeding - she was given 2mg PO vitamin K in the ED - will hold her warfarin for now and check INR daily. her target INR is 2.5-3.5 with her mitral valve replacement (3) History of mitral valve repair Is this a current diagnosis for this admission?: Yes Plan: - hz of repair 5 years ago - on Warfarin 2 mg and 1 mg on alternate days - INR 8.9 - will hold warfarin for now - Echo pending (4) HTN (hypertension) Qualifiers: Hypertension type: essential hypertension Qualified Code(s): I10 - Essential (primary) hypertension Is this a current diagnosis for this admission?: Yes Plan: - on lasix and amlodipine - will hold due to hypotension (5) HLD (hyperlipidemia) Is this a current diagnosis for this admission?: Yes Plan: - continue lipitor (6) [id number] renal failure Qualifiers: Acute renal failure type: unspecified Chronic kidney disease stage: stage 4 (severe) Qualified Code(s): N17.9 - Acute kidney failure, unspecified; N18.4 - Chronic kidney disease, stage 4 (severe) Is this a current diagnosis for this admission?: Yes Plan: - Crea 3.09 from baseline of 2 - likely 2/2 hypotension - will do gentle hydration and monitor (7) Leukocytosis Qualifiers: Leukocytosis type: other Qualified Code(s): D72.828 - Other elevated white blood cell count Is this a current diagnosis for this admission?: Yes Plan: - UA and chest XR clear - given 1 dose of rocephin - will hold off on further abx for now (8) Atrial fibrillation Qualifiers: Atrial fibrillation type: paroxysmal Qualified Code(s): I48.0 - Paroxysmal atrial fibrillation Is this a current diagnosis for this admission?: Yes Plan: - on warfarin and amiodarone - rate and rhythm controlled - hold warfarin - continue amio. will check TSH (9) Elevated LFTs Is this a current diagnosis for this admission?: Yes Plan: - AST 526, ALT 447 - ordered hepatitis panel - can still be from hypotension - will continue to monitor daily - Time Time Spent with patient: 25-34 minutes Medications reviewed and adjusted accordingly: Yes Anticipated Discharge Disposition: Home with Home Health Anticipated Discharge Timeframe: TBD - Inpatient Certification Based on my medical assessment, after consideration of the patient's comorbidities, presenting symptoms, or acuity I expect that the services needed warrant INPATIENT care.: Yes I certify that my determination is in accordance with my understanding of Medic are's requirements for reasonable and necessary INPATIENT services [42 CFR 412.3e].: Yes Medical Necessity: Risk of Complication if Not Cared For in Hospital
[2020-04-30] MEDS: NORMAL SALINE 1000 ML 1,000 ML IV PRN (21:01)
[2020-05-01 05:38] LABS: ALBUMIN 2.4 g/dL (3.5-5.0); ALKALINE PHOSPHATASE 62 U/L (38-126); ANION GAP 6 (5-19); ASPARTATE AMINO TRANSFERASE 598 U/L (14-36); BILIRUBIN,DIRECT 0.6 mg/dL (0.0-0.4); BILIRUBIN,TOTAL 1.1 mg/dL (0.2-1.3); BLOOD UREA NITROGEN 53 mg/dL (7-20); CALCIUM 8.1 mg/dL (8.4-10.2); CARBON DIOXIDE 23 mmol/L (22-30); CHLORIDE 111 mmol/L (98-107); GLUCOSE 77 mg/dL (75-110); POTASSIUM 4.1 mmol/L (3.6-5.0); TOTAL PROTEIN 4.4 g/dL (6.3-8.2)
[2020-05-01 05:46] LABS: ABSOLUTE BASOPHILS # (AUTO) 0.1 10^3/uL (0.0-0.2); ABSOLUTE EOSINOPHILS # (AUTO) 0.3 10^3/uL (0.0-0.6); ABSOLUTE LYMPHOCYTES (AUTO) 1.2 10^3/uL (0.5-4.7); ABSOLUTE MONOCYTES (AUTO) 0.8 10^3/uL (0.1-1.4); ABSOLUTE NEUT (AUTO) 8.5 10^3/uL (1.7-8.2); BASOPHILS % (AUTO) 0.6 % (0-2); EOSINOPHILS % (AUTO) 2.8 % (0-6); HEMATOCRIT 27.4 % (36.0-47.0); LYMPHOCYTES % (AUTO) 10.6 % (13-45); MEAN CORPUSCULAR HEMOGLOBIN 30.7 pg (27.0-33.4); MEAN CORPUSCULAR HGB CONC 34.2 g/dL (32.0-36.0); MEAN CORPUSCULAR VOLUME 90 fl (80-97); MONOCYTES % (AUTO) 7.8 % (3-13); PLATELET COUNT 232 10^3/uL (150-450); RED BLOOD COUNT 3.06 10^6/uL (3.72-5.28); RED CELL DISTRIBUTION WIDTH 18.3 % (11.5-14.0); SEGMENTED NEUTROPHILS % (AUTO) 78.2 % (42-78); TOTAL CELLS COUNTED % (AUTO) 100 %; WHITE BLOOD COUNT 10.8 10^3/uL (4.0-10.5)
[2020-05-01 05:49] LABS: HEMOGLOBIN 9.4 g/dL (12.0-15.5)
[2020-05-01 06:08] LABS: INTERNATIONAL RATION (INR) 5.44; PROTHROMBIN TIME 48.8 SEC (11.4-15.4)
[2020-05-01] MEDS: PANTOPRAZOLE SODIUM 40 MG TABLET.DR PO SCH (06:09)
[2020-05-01] MEDS: NORMAL SALINE 1000 ML 1,000 ML IV PRN ×2 (10:49→23:43)
--- NOTE | 2020-05-01 17:29 | PDOC PROGRESS REPORT ---
Subjective Date:: 05/01/20 Subjective:: JJ MCKEON is a 85 year old female, PMH of atrial fibrillation on warfarin , mitral valve replacement, HLD, HTN, COPD, who was brought to the ED due to syncope. She was apparently using her walker and was walking towards a chair and the next thing she remembers is waking up on the floor on her side. She denied any pre syncopal symptoms like palpitation, headache, diaphoresis, chest pain. She did not have any bowel/bladder incontinence. Her syncopal episode was unwitnessed and she is not sure how long she was out but she stated it couldn't have been more than a few minutes. She called EMS and she was subsequently taken to the ED. She denied any recent change to her medications. She did admit to have previous fall episodes and being unsteady on her feet. She denied any recent illness, no cough, no diarrhea. She has poor appetite and poor oral intake which has been going on for months. In the ED, BP 93/44, HR 74, RR 23, afebrile, O2 sat 96% on RA. CBC showed a WBC count of 15.4, Hgb 11.7. CMP showed a crea of 3.08 from 2.02 in June. troponin negative. EKG showed sinus rhythm, LAD, borderline r wave progression. She was given 2L IV bolus. Hospitalist service was asked to evaluate her for admission. D2 hospital stay she was seen and examined at bedside. She reports feeling marginally better compared to yesterday. She had a session with physical therap y today and she was able to stand up with minimal assistance however she still felt unsteady while using her walker. She has not touched her breakfast tray and when I spoke to her last night he also stated that she does not eat much. She denies having any chest pain or shortness of breath. Reason For Visit: SYNCOPE Physical Exam Vital Signs: Temp Pulse Resp BP Pulse Ox 98.0 F 71 16 135/43 H 96 05/01/20 12:32 05/01/20 14:00 05/01/20 12:32 05/01/20 12:32 05/01/20 12:32 Intake & Output 04/30/20 05/01/20 05/02/20 06:59 06:59 06:59 Intake Total 2570 2116 Output Total 1500 500 Balance 1070 1616 Weight 56.6 kg General appearance: PRESENT: no acute distress, cooperative Head exam: PRESENT: atraumatic, normocephalic Eye exam: PRESENT: EOMI, PERRLA Mouth exam: PRESENT: moist Neck exam: PRESENT: full ROM Respiratory exam: PRESENT: clear to auscultation kay, symmetrical, unlabored Cardiovascular exam: PRESENT: RRR, +S1, +S2 Pulses: PRESENT: normal carotid pulses Vascular exam: PRESENT: normal capillary refill GI/Abdominal exam: PRESENT: normal bowel sounds, soft. ABSENT: rebound, tenderness Extremities exam: PRESENT: other - She has multiple hematoma on her arms and this is likely from easy bruising secondary to elevated INR from warfarin therapy Musculoskeletal exam: PRESENT: ambulatory, other - Kyphoscoliosis Neurological exam: PRESENT: alert, awake, oriented to person, oriented to place, oriented to time, oriented to situation Psychiatric exam: PRESENT: normal mood Skin exam: PRESENT: normal color Results Laboratory Results: 05/01/20 04:42 05/01/20 04:42 05/01/20 05/01/20 05/01/20 04:42 04:42 04:42 WBC 10.8 H RBC 3.06 L Hgb 9.4 L D Hct 27.4 L MCV 90 MCH 30.7 MCHC 34.2 RDW 18.3 H Plt Count 232 Seg Neutrophils % 78.2 H Sodium 140.0 Potassium 4.1 Chloride 111 H Carbon Dioxide 23 Anion Gap 6 BUN 53 H Creatinine 2.30 H Est GFR ( Amer) 24 L Glucose 77 Calcium 8.1 L Magnesium 2.2 Total Bilirubin 1.1 AST 598 H Alkaline Phosphatase 62 Total Protein 4.4 L Albumin 2.4 L TSH 1.38 04/30/20 04/30/20 11:36 11:36 Creatine Kinase 32 CK-MB (CK-2) 0.37 Troponin I < 0.012 Impressions: Chest X-Ray 04/30/20 14:52 IMPRESSION: No acute changes Head CT 04/30/20 16:48 IMPRESSION: NORMAL BRAIN CT WITHOUT CONTRAST. EVIDENCE OF ACUTE STROKE: NO. Assessment and Plan - Diagnosis (1) Syncope due to orthostatic hypotension Is this a current diagnosis for this admission?: Yes Plan: - - reportsbrought in due to syncopal episode, unwitnessed - noted ot be hypotensive in the ED 90s oevr 40s - EKG sinus rhythm - Troponin negative - lactic acid normal - CT head negative - syncope likely from hypotension, less likely cardiogenic or septic - will hold lasix and amlodipine for now - echo pending - We will continue gentle hydration - monitor in tele (2) Supratherapeutic INR Is this a current diagnosis for this admission?: Yes Plan: - on warfarin due to A.fib and mitral valve repair - INR 8>5.4 no bleeding - she was given 2mg PO vitamin K in the ED -We will continue to hold her warfarin and check INR daily. her target INR is 2.5-3.5 with her mitral valve replacement (3) History of mitral valve repair Is this a current diagnosis for this admission?: Yes Plan: - hz of repair 5 years ago - on Warfarin 2 mg and 1 mg on alternate days - INR 8.9>5.4 - continue to hold warfarin - Echo pending (4) HTN (hypertension) Qualifiers: Hypertension type: essential hypertension Qualified Code(s): I10 - Essential (primary) hypertension Is this a current diagnosis for this admission?: Yes Plan: - on lasix and amlodipine - will hold due to hypotension (5) HLD (hyperlipidemia) Is this a current diagnosis for this admission?: Yes Plan: - continue lipitor (6) [id number] renal failure Qualifiers: Acute renal failure type: unspecified Chronic kidney disease stage: stage 4 (severe) Qualified Code(s): N17.9 - Acute kidney failure, unspecified; N18.4 - Chronic kidney disease, stage 4 (severe) Is this a current diagnosis for this admission?: Yes Plan: - Crea 3.09z.2.3 from baseline of 2 - likely 2/2 hypotension -Creatinine improving with IV fluids, will continue gentle hydration and monitor her creatinine. (7) Leukocytosis Qualifiers: Leukocytosis type: other Qualified Code(s): D72.828 - Other elevated white blood cell count Is this a current diagnosis for this admission?: Yes Plan: - WBC 15.4>10.8 - UA and chest XR clear - given 1 dose of rocephin - will hold off on further abx for now (8) Atrial fibrillation Qualifiers: Atrial fibrillation type: paroxysmal Qualified Code(s): I48.0 - Paroxysmal atrial fibrillation Is this a current diagnosis for this admission?: Yes Plan: - on warfarin and amiodarone - rate and rhythm controlled - hold warfarin - continue amio. will check TSH (9) Elevated LFTs Is this a current diagnosis for this admission?: Yes Plan: - AST 526, ALT 447 - ordered hepatitis panel - can still be from hypotension - will continue to monitor daily (10) Poor appetite Is this a current diagnosis for this admission?: Yes Plan: -According to her her appetite has been poor for the past several months -I am wondering if there is a component of depression. We will do a depression screen tomorrow and consult behavioral health as needed. - Time Time Spent with patient: 25-34 minutes Medications reviewed and adjusted accordingly: Yes Anticipated Discharge Disposition: Home with Home Health Anticipated Discharge Timeframe: TBD
[2020-05-02] MEDS: PANTOPRAZOLE SODIUM 40 MG TABLET.DR PO SCH (06:02)
[2020-05-02 06:24] LABS: HEMATOCRIT 31.4 % (36.0-47.0); HEMOGLOBIN 10.7 g/dL (12.0-15.5); MEAN CORPUSCULAR HEMOGLOBIN 31.1 pg (27.0-33.4); MEAN CORPUSCULAR HGB CONC 34.2 g/dL (32.0-36.0); MEAN CORPUSCULAR VOLUME 91 fl (80-97); PLATELET COUNT 296 10^3/uL (150-450); RED BLOOD COUNT 3.45 10^6/uL (3.72-5.28); RED CELL DISTRIBUTION WIDTH 18.2 % (11.5-14.0); WHITE BLOOD COUNT 16.9 10^3/uL (4.0-10.5)
[2020-05-02 06:26] LABS: INTERNATIONAL RATION (INR) 3.81; PROTHROMBIN TIME 37.2 SEC (11.4-15.4)
[2020-05-02 06:44] LABS: ALBUMIN 2.3 g/dL (3.5-5.0); ALKALINE PHOSPHATASE 75 U/L (38-126); ANION GAP 8 (5-19); ASPARTATE AMINO TRANSFERASE 391 U/L (14-36); BILIRUBIN,DIRECT 0.8 mg/dL (0.0-0.4); BILIRUBIN,TOTAL 1.5 mg/dL (0.2-1.3); BLOOD UREA NITROGEN 38 mg/dL (7-20); CALCIUM 8.5 mg/dL (8.4-10.2); CARBON DIOXIDE 17 mmol/L (22-30); CHLORIDE 109 mmol/L (98-107); GLUCOSE 110 mg/dL (75-110); POTASSIUM 4.4 mmol/L (3.6-5.0); TOTAL PROTEIN 4.4 g/dL (6.3-8.2)
[2020-05-02 07:40] LABS: ABSOLUTE MONOCYTES # (MANUAL) 1.4 10^3/uL (0.1-1.4); BASOPHILS % (MANUAL) 0 % (0-2); EOSINOPHILS % (MANUAL) 0 % (0-6); LYMPHOCYTES % (MANUAL) 6 % (13-45); MONOCYTES % (MANUAL) 8 % (3-13); SEGMENTED NEUTROPHILS % (MAN) 86 % (42-78); TOTAL CELLS COUNTED 100
[2020-05-02 07:42] LABS: ANISOCYTOSIS 2+; BURR CELLS 1+; OVALOCYTES SLIGHT; PLATELET CLUMPS PRESENT; PLATELET COMMENT ADEQUATE; POIKILOCYTOSIS 1+
--- NOTE | 2020-05-02 08:59 | RADIOLOGY REPORT (SQ) ---
EXAM DESCRIPTION: CHEST SINGLE VIEW IMAGES COMPLETED DATE/TIME: 05/02/2020 8:44 am REASON FOR STUDY: elevated WBC count COMPARISON: Chest films 07/27/2018, 11/20/2018, 07/04/2019, 06/30/2019 EXAM PARAMETERS: NUMBER OF VIEWS: One view. TECHNIQUE: Single frontal radiographic view of the chest acquired. RADIATION DOSE: NA LIMITATIONS: None. FINDINGS: LUNGS AND PLEURA: No opacities, masses or pneumothorax. No pleural effusion. MEDIASTINUM AND HILAR STRUCTURES: No masses. Contour normal. 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 BONES: No acute findings. HARDWARE: None in the chest. OTHER: No other significant finding. IMPRESSION: No acute findings TECHNICAL DOCUMENTATION: JOB ID: [id number] 2010 [employer]- All Rights Reserved Reading location - IP/workstation name: [email or web address]
[2020-05-02 09:17] LABS: HEMATOCRIT 30.6 % (36.0-47.0); HEMOGLOBIN 10.2 g/dL (12.0-15.5); MEAN CORPUSCULAR HEMOGLOBIN 30.2 pg (27.0-33.4); MEAN CORPUSCULAR HGB CONC 33.3 g/dL (32.0-36.0); MEAN CORPUSCULAR VOLUME 91 fl (80-97); RED BLOOD COUNT 3.38 10^6/uL (3.72-5.28); RED CELL DISTRIBUTION WIDTH 18.5 % (11.5-14.0); WHITE BLOOD COUNT 22.4 10^3/uL (4.0-10.5)
[2020-05-02 10:03] LABS: PLATELET COUNT 276 10^3/uL (150-450)
--- NOTE | 2020-05-02 15:34 | PDOC PROGRESS REPORT ---
Subjective Date:: 05/02/20 Subjective:: JJ MCKEON is a 85 year old female, PMH of atrial fibrillation on warfarin , mitral valve replacement, HLD, HTN, COPD, who was brought to the ED due to syncope. She was apparently using her walker and was walking towards a chair and the next thing she remembers is waking up on the floor on her side. She denied any pre syncopal symptoms like palpitation, headache, diaphoresis, chest pain. She did not have any bowel/bladder incontinence. Her syncopal episode was unwitnessed and she is not sure how long she was out but she stated it couldn't have been more than a few minutes. She called EMS and she was subsequently taken to the ED. She denied any recent change to her medications. She did admit to have previous fall episodes and being unsteady on her feet. She denied any recent illness, no cough, no diarrhea. She has poor appetite and poor oral intake which has been going on for months. In the ED, BP 93/44, HR 74, RR 23, afebrile, O2 sat 96% on RA. CBC showed a WBC count of 15.4, Hgb 11.7. CMP showed a crea of 3.08 from 2.02 in June. troponin negative. EKG showed sinus rhythm, LAD, borderline r wave progression. She was given 2L IV bolus. Hospitalist service was asked to evaluate her for admission. D2 hospital stay 05/01/20 she was seen and examined at bedside. She reports feeling marginally better compared to yesterday. She had a session with physic al therapy today and she was able to stand up with minimal assistance however she still felt unsteady while using her walker. She has not touched her breakfast tray and when I spoke to her last night he also stated that she does not eat much. She denies having any chest pain or shortness of breath. D3 hospital stay 05/02/20 She was seen and examined at bedside. She reports feeling much better, was able to eat more. I did a PHQ 9 score on her and it showed mild depression. She denies she's depressed. I have asked behavioral health to come and see her. I spoke to discharge planning for her SNF needs and they have given a list to her niece for their chosen place. Reason For Visit: SYNCOPE Physical Exam Vital Signs: Temp Pulse Resp BP Pulse Ox 98.1 F 76 18 102/40 L 93 05/02/20 11:49 05/02/20 14:00 05/02/20 11:49 05/02/20 11:49 05/02/20 11:49 Intake & Output 05/01/20 05/02/20 05/03/20 06:59 06:59 06:59 Intake Total 2570 3216 118 Output Total 1500 1250 Balance 1070 1966 118 Weight 56.6 kg 61.9 kg General appearance: PRESENT: no acute distress, cooperative Head exam: PRESENT: atraumatic, normocephalic Eye exam: PRESENT: EOMI, PERRLA Mouth exam: PRESENT: moist Neck exam: PRESENT: full ROM Respiratory exam: PRESENT: clear to auscultation kay, symmetrical, unlabored Cardiovascular exam: PRESENT: RRR, +S1, +S2 Pulses: PRESENT: +2 pedal pulses bilateral GI/Abdominal exam: PRESENT: normal bowel sounds, soft. ABSENT: rebound, tenderness Extremities exam: PRESENT: full ROM, other - generalized lower extremity weakness Musculoskeletal exam: PRESENT: full ROM Neurological exam: PRESENT: alert, awake, oriented to person, oriented to place, oriented to time, oriented to situation Skin exam: PRESENT: normal color Results Laboratory Results: 05/02/20 08:58 05/02/20 05:45 05/02/20 05/02/20 05/02/20 05:45 05:45 08:58 WBC 16.9 H 22.4 H RBC 3.45 L 3.38 L Hgb 10.7 L 10.2 L Hct 31.4 L 30.6 L MCV 91 91 MCH 31.1 30.2 MCHC 34.2 33.3 RDW 18.2 H 18.5 H Plt Count 296 276 Seg Neutrophils % Not Reportable Sodium 134.4 L Potassium 4.4 Chloride 109 H Carbon Dioxide 17 L Anion Gap 8 BUN 38 H Creatinine 1.96 H Est GFR ( Amer) 29 L Glucose 110 Calcium 8.5 Total Bilirubin 1.5 H AST 391 H Alkaline Phosphatase 75 Total Protein 4.4 L Albumin 2.3 L 04/30/20 13:36 Catheterized Urine Urine Culture - Final Escherichia Coli 04/30/20 04/30/20 11:36 11:36 Creatine Kinase 32 CK-MB (CK-2) 0.37 Troponin I < 0.012 Impressions: Head CT 04/30/20 16:48 IMPRESSION: NORMAL BRAIN CT WITHOUT CONTRAST. EVIDENCE OF ACUTE STROKE: NO. Chest X-Ray 05/02/20 00:00 IMPRESSION: No acute findings Assessment and Plan - Diagnosis (1) Syncope due to orthostatic hypotension Is this a current diagnosis for this admission?: Yes Plan: - Resolved - reports brought in due to syncopal episode, unwitnessed - noted ot be hypotensive in the ED 90s over 40s - EKG sinus rhythm - Troponin negative - lactic acid normal - CT head negative - syncope likely from hypotension, less likely cardiogenic or septic - will hold lasix and amlodipine for now - echo pending - monitor in tele (2) Supratherapeutic INR Is this a current diagnosis for this admission?: Yes Plan: - on warfarin due to A.fib and mitral valve repair - INR 8>5.4 no bleeding - she was given 2mg PO vitamin K in the ED -We will continue to hold her warfarin and check INR daily. her target INR is 2.5-3.5 with her mitral valve replacement - coumadin pharmacy dosing ordered (3) History of mitral valve repair Is this a current diagnosis for this admission?: Yes Plan: - hz of repair 5 years ago - on Warfarin 2 mg and 1 mg on alternate days - INR 8.9>5.4 - continue to hold warfarin - Echo pending (4) HTN (hypertension) Qualifiers: Hypertension type: essential hypertension Qualified Code(s): I10 - Essential (primary) hypertension Is this a current diagnosis for this admission?: Yes Plan: - on lasix and amlodipine - will hold due to hypotension (5) HLD (hyperlipidemia) Is this a current diagnosis for this admission?: Yes Plan: - continue lipitor (6) Bhoaf-wo-fgndhuz renal failure Qualifiers: Acute renal failure type: unspecified Chronic kidney disease stage: stage 4 (severe) Qualified Code(s): N17.9 - Acute kidney failure, unspecified; N18.4 - Chronic kidney disease, stage 4 (severe) Is this a current diagnosis for this admission?: Yes Plan: - Crea 3.09> 2.3>1.9 from baseline of 2 - likely 2/2 hypotension (7) Leukocytosis Qualifiers: Leukocytosis type: other Qualified Code(s): D72.828 - Other elevated white blood cell count Is this a current diagnosis for this admission?: Yes Plan: - WBC 15.4>10.8>22 - UA and chest XR clear - given 1 dose of rocephin - UA growing e coli - will resume abx with rocephin (8) Atrial fibrillation Qualifiers: Atrial fibrillation type: paroxysmal Qualified Code(s): I48.0 - Paroxysmal atrial fibrillation Is this a current diagnosis for this admission?: Yes Plan: - on warfarin and amiodarone - rate and rhythm controlled - hold warfarin - continue amio. TSH 1.38 (9) Elevated LFTs Is this a current diagnosis for this admission?: Yes Plan: - AST 526>391, ALT 447>420 - ordered hepatitis panel - can still be from hypotension - will continue to monitor daily (10) Poor appetite Is this a current diagnosis for this admission?: Yes Plan: -According to her her appetite has been poor for the past several months -PHQ 9 screen showed mild depression. May benefit from mirtazapine both for mood and appetite - behavioral health consulted (11) Physical deconditioning Is this a current diagnosis for this admission?: Yes Plan: - would need rehab - discharge planning consulted - Time Time Spent with patient: 25-34 minutes Medications reviewed and adjusted accordingly: Yes Anticipated Discharge Disposition: Longterm Facility Anticipated Discharge Timeframe: within 48 hours
[2020-05-02] MEDS: NORMAL SALINE 1000 ML 1,000 ML IV PRN (17:47)
[2020-05-02 23:38] LABS: APPEARANCE,URINE SLIGHTLY-CLOUDY; BILIRUBIN,URINE NEGATIVE (NEGATIVE); COLOR,URINE YELLOW; GLUCOSE, URINE NEGATIVE (NEGATIVE); KETONES,URINE NEGATIVE (NEGATIVE); LEUKOCYTE ESTERASE,URINE SMALL (NEGATIVE); NITRITE,URINE NEGATIVE (NEGATIVE); PROTEIN,URINE NEGATIVE (NEGATIVE); URINE SPECIFIC GRAVITY 1.015; UROBILINOGEN,URINE NEGATIVE mg/dL (<2.0)
[2020-05-03 06:38] LABS: ABSOLUTE EOSINOPHILS # (AUTO) 0.4 10^3/uL (0.0-0.6); ABSOLUTE LYMPHOCYTES (AUTO) 1.1 10^3/uL (0.5-4.7); ABSOLUTE MONOCYTES (AUTO) 1.3 10^3/uL (0.1-1.4); ABSOLUTE NEUT (AUTO) 12.9 10^3/uL (1.7-8.2); BASOPHILS % (AUTO) 0.3 % (0-2); EOSINOPHILS % (AUTO) 2.4 % (0-6); HEMATOCRIT 26.5 % (36.0-47.0); HEMOGLOBIN 9.1 g/dL (12.0-15.5); MEAN CORPUSCULAR HEMOGLOBIN 31.2 pg (27.0-33.4); MEAN CORPUSCULAR HGB CONC 34.2 g/dL (32.0-36.0); MEAN CORPUSCULAR VOLUME 91 fl (80-97); MONOCYTES % (AUTO) 8.3 % (3-13); RED CELL DISTRIBUTION WIDTH 18.3 % (11.5-14.0); TOTAL CELLS COUNTED % (AUTO) 100 %; WHITE BLOOD COUNT 15.7 10^3/uL (4.0-10.5)
[2020-05-03 06:47] LABS: PROTHROMBIN TIME 34.9 SEC (11.4-15.4)
[2020-05-03] MEDS: PANTOPRAZOLE SODIUM 40 MG TABLET.DR PO SCH (06:55)
[2020-05-03 07:11] LABS: ALBUMIN 2.2 g/dL (3.5-5.0); ALKALINE PHOSPHATASE 69 U/L (38-126); ANION GAP 6 (5-19); ASPARTATE AMINO TRANSFERASE 237 U/L (14-36); BILIRUBIN,DIRECT 0.5 mg/dL (0.0-0.4); BILIRUBIN,TOTAL 1.2 mg/dL (0.2-1.3); BLOOD UREA NITROGEN 32 mg/dL (7-20); CALCIUM 7.9 mg/dL (8.4-10.2); CARBON DIOXIDE 19 mmol/L (22-30); CHLORIDE 112 mmol/L (98-107); GLUCOSE 85 mg/dL (75-110); POTASSIUM 3.9 mmol/L (3.6-5.0); TOTAL PROTEIN 4.1 g/dL (6.3-8.2)
[2020-05-03 07:20] LABS: PLATELET COUNT 232 10^3/uL (150-450)
[2020-05-03] MEDS: NORMAL SALINE 1000 ML 1,000 ML IV PRN (09:43)
[2020-05-03] MEDS: CEFTRIAXONE 2 GM/D5W RTU 2 GM/50 ML RTUPB IV SCH (09:44)
[2020-05-03] MEDS ORDERED: CEFTRIAXONE INJ 1000 MG VIAL IV SCH (10:00)
--- NOTE | 2020-05-03 14:17 | XCELERA REPORT ---
[address] [address] Transthoracic Echocardiogram Report Name: JJ MCKEON Age: 85 yrs Gender: Female : 1935 Patient Status: Inpatient Patient Location: [address] [place] [address] Study Date: 05/03/2020 09:21 AM History: Syncope MVR Height: 60 in Weight: 123 lb BSA: 1.5 m2 Procedure: A complete two-dimensional transthoracic echocardiogram was performed (2D, M-mode, spectral and color flow Doppler). The study was technically difficult with many images being suboptimal in quality. Reason For Study: syncope, hx of mitral valve replacement Previous Evaluation: No previous studies were available. History: Syncope MVR. Ordering Physician: ZAY BERRY Performed By: Fredrick Charles Interpretation Summary Left ventricular systolic function is normal. The Ejection Fraction estimate is 55-60% The prosthetic mitral valve appears to open well. There is a mild amount of tricuspid regurgitation There is mild pulmonary hypertension by echo There is no aortic valve stenosis There is no pericardial effusion. MMode/2D Measurements & Calculations RVDd: 2.0 cm LVIDd: 3.5 cm FS: 37.0 % Ao root diam: 2.9 cm IVSd: 1.1 cm LVIDs: 2.2 cm EDV(Teich): 50.7 ml Ao root area: 6.6 cm2 LVPWd: 1.0 cm ESV(Teich): 16.2 ml LA dimension: 3.1 cm EF(Teich): 68.0 % Doppler Measurements & Calculations MV E max isabel: MV P1/2t max isabel: Ao V2 max: LV V1 max P.6 cm/sec 144.4 cm/sec 159.0 cm/sec 5.7 mmHg MV A max isabel: MV P1/2t: 93.5 msec Ao max PG: LV V1 max: 138.2 cm/sec MVA(P1/2t): 2.4 cm2 10.1 mmHg 119.0 cm/sec MV E/A: 0.95 MV dec slope: 452.3 cm/sec2 MV dec time: 0.30 sec PA V2 max: PI end-d isabel: TR max isabel: MV P1/2t-pr_phl: 96.0 cm/sec 131.7 cm/sec 327.1 cm/sec 93.5 msec PA max P.7 mmHg TR max P.8 mmHg Left Ventricle The left ventricle is normal in size. There is mild to moderate concentric left ventricular hypertrophy. Left ventricular systolic function is normal. The Ejection Fraction estimate is 55-60%. LV diastolic function not assessed. Right Ventricle The right ventricle is normal in size and function. Atria The right atrium is normal. The left atrium is mildly dilated. Mitral Valve The prosthetic mitral valve is well-seated. The prosthetic mitral valve appears to open well. Aortic Valve The aortic valve opens well. The aortic valve is trileaflet. The aortic valve is normal in structure and function. There is no aortic valve stenosis. No aortic regurgitation is present. Tricuspid Valve The tricuspid valve is normal in structure and function. There is a mild amount of tricuspid regurgitation. Right ventricular systolic pressure is estimated to be elevated at 40-50mmHg. There is mild pulmonary hypertension by echo. Pulmonic Valve The pulmonic valve is not well visualized. There is no pulmonic valvular stenosis. There is a mild amount of pulmonic regurgitation. Great Vessels The aortic root is normal size. The inferior vena cava appeared normal and decreased > 50% with respiration (RAP 5-10 mmHg). Effusions There is no pericardial effusion. : ZAY BERRY Anil
--- NOTE | 2020-05-03 14:21 | PDOC CONSULTATION ---
Consultation-Blank Consultation: Behavioral Health Consult: PHQ9 score with Mild Depression, not eating or sleeping well Conducted chart review at 1322. Evaluation with patient from [id number]. Patient is an 85 year old female who presented to the emergency department on 04/30/2020 via EMS for syncopal episode and fall. She was subsequently admitted to Hospitalist services same day at 2002 for syncope due to orthostatic hypotension, supratherapeutic INR, history of Mitral Valve repair, hypertension, hyperlipidemia, acute on chronic renal failure, leukocytosis, Atrial Fibrillation, and elevated LFTs. Discharge Planning is involved for SNF and coordinating with patient's niece. Head CT dated 04/30/2020 was normal and had no neurodegenerative language. Final EKG dated 04/30/2020 had QT of 392 and QTc of 453. A Chest X-Ray was completed with no acute findings. Patient is on Wafarin. Patient was sitting up in bed with legs out in front of her watching TV. She turned the TV down when this clinician entered and introduced self. She was adamant she was not depressed and said it twice. She stated she was not interested in medication for depression and/or anxiety even after it was explained that being stuck in the hospital can be difficult or just dealing with chronic medical issues. She reported she ate breakfast but slept through lunch. She denied being on medication for psychiatric reasons. She denied previous mental health hospitalizations. She denied current suicidal ideation. When asked if she needed anything from her nursing staff she said "maybe a coffee or coke I am really dry." She inquired about paperwork on her food tray table which was related to SNF and assisted living facilities. She commented her niece was also supposed to get the information and inquired if a place had been picked yet. It was explained the discharge planning team would reach out to her niece and they would all be active participants. Patient was alert and oriented to self, person, place, time and situation. Mood was euthymic with congruent affect. She denied current suicidal and homicidal ideation. Patient did not appear to be responding to internal stimuli as evidenced by fair eye contact and answering questions appropriately when addressed. Thought processes were linear and organized. Conversational speech was within normal limits for rate, tone and prosody. Intellectual abilities are estimated to be average. Insight, judgment and impulse control were fair as evidenced by asking questions about her SNF placement and if niece has information. Clinical Presentation: Scored Mild Depression level on PHQ9 Multiple Chronic medical issues No medication recommendations Impression/Plan: Patient is cleared from acute psychiatric services. Patient denied suicidal ideation, denied mental health history to include being prescribed medications, denied previous mental health hospitalizations, was adamant she is not depressed despite the PHQ9 score indicating mild depression, and said she did not want to be put on medication for depression/anxiety. Patient was alert and oriented x5 and no observed psychosis. She was able to express self, wants, and needs. Patient was able to talk about getting SNF and assisted living resources, that her niece was supposed to get them as well, and wanted to know where she was going to go. This all suggests alertness and oriented to the here and now and future/forward thinking. She is not felt to be a danger to self or others at this time. Consulted with Dr. Tinoco regarding the management and care of patient. Hospitalist aware of recommendations (spoke to her at [phone] via telephone).
--- NOTE | 2020-05-03 16:54 | PDOC PROGRESS REPORT ---
Subjective Date:: 05/03/20 Subjective:: JJ MCKEON is a 85 year old female, PMH of atrial fibrillation on warfarin , mitral valve replacement, HLD, HTN, COPD, who was brought to the ED due to syncope. She was apparently using her walker and was walking towards a chair and the next thing she remembers is waking up on the floor on her side. She denied any pre syncopal symptoms like palpitation, headache, diaphoresis, chest pain. She did not have any bowel/bladder incontinence. Her syncopal episode was unwitnessed and she is not sure how long she was out but she stated it couldn't have been more than a few minutes. She called EMS and she was subsequently taken to the ED. She denied any recent change to her medications. She did admit to have previous fall episodes and being unsteady on her feet. She denied any recent illness, no cough, no diarrhea. She has poor appetite and poor oral intake which has been going on for months. In the ED, BP 93/44, HR 74, RR 23, afebrile, O2 sat 96% on RA. CBC showed a WBC count of 15.4, Hgb 11.7. CMP showed a crea of 3.08 from 2.02 in June. troponin negative. EKG showed sinus rhythm, LAD, borderline r wave progression. She was given 2L IV bolus. Hospitalist service was asked to evaluate her for admission. D2 hospital stay 05/01/20 she was seen and examined at bedside. She reports feeling marginally better compared to yesterday. She had a session with physic al therapy today and she was able to stand up with minimal assistance however she still felt unsteady while using her walker. She has not touched her breakfast tray and when I spoke to her last night he also stated that she does not eat much. She denies having any chest pain or shortness of breath. D3 hospital stay 05/02/20 She was seen and examined at bedside. She reports feeling much better, was able to eat more. I did a PHQ 9 score on her and it showed mild depression. She denies she's depressed. I have asked behavioral health to come and see her. I spoke to discharge planning for her SNF needs and they have given a list to her niece for their chosen place. D4 Hospital stay 05/03/20 She was seen and examined at bedside. No new complains. Appetite good, generalized weakness has improved. Became SOB when working with PT. CXR reviewed which was normal, echo reviewed normal EF. I doubt she has a PE since she came in with supratherapeutic INR. INR today 3.5 and I have asked the pharmacy to restart her coumadin. Spoke to resource management planner for disposition. Her niece which is also her primary care management associate and we are waiting for her to choose a place for SNF and rehab. We are treating her for UTI with IV rocephin. Reason For Visit: SYNCOPE Physical Exam Vital Signs: Temp Pulse Resp BP Pulse Ox 98.3 F 87 19 115/37 L 93 05/03/20 15:39 05/03/20 15:39 05/03/20 15:39 05/03/20 15:39 05/03/20 15:39 Intake & Output 05/02/20 05/03/20 05/04/20 06:59 06:59 06:59 Intake Total 3216 2436 168 Output Total 1250 730 Balance 1966 1706 168 Weight 61.9 kg 62.5 kg General appearance: PRESENT: cooperative, mild distress Head exam: PRESENT: atraumatic, normocephalic Eye exam: PRESENT: EOMI, PERRLA Mouth exam: PRESENT: moist Neck exam: PRESENT: full ROM Respiratory exam: PRESENT: clear to auscultation kay, unlabored Cardiovascular exam: PRESENT: RRR, +S1, +S2 Pulses: PRESENT: +2 pedal pulses bilateral GI/Abdominal exam: PRESENT: normal bowel sounds, soft. ABSENT: rebound, tenderness Extremities exam: PRESENT: full ROM Musculoskeletal exam: PRESENT: full ROM Neurological exam: PRESENT: alert, awake, oriented to person, oriented to place, oriented to time, oriented to situation Psychiatric exam: PRESENT: normal mood Skin exam: PRESENT: normal color Results Laboratory Results: 05/03/20 05:54 05/03/20 05:54 05/02/20 05/03/20 05/03/20 23:15 05:54 05:54 WBC 15.7 H RBC 2.90 L Hgb 9.1 L Hct 26.5 L MCV 91 MCH 31.2 MCHC 34.2 RDW 18.3 H Plt Count 232 Seg Neutrophils % 82.0 H Sodium 136.9 L Potassium 3.9 Chloride 112 H Carbon Dioxide 19 L Anion Gap 6 BUN 32 H Creatinine 1.79 H Est GFR ( Amer) 32 L Glucose 85 Calcium 7.9 L Total Bilirubin 1.2 AST 237 H Alkaline Phosphatase 69 Total Protein 4.1 L Albumin 2.2 L Urine Color YELLOW Urine Appearance SLIGHTLY-CLOUDY Urine pH 5.0 Ur Specific [place] 1.015 Urine Protein NEGATIVE Urine Glucose (UA) NEGATIVE Urine Ketones NEGATIVE Urine Blood MODERATE H Urine Nitrite NEGATIVE Ur Leukocyte Esterase SMALL H Urine WBC (Auto) 15 Urine RBC (Auto) 30 04/30/20 04/30/20 11:36 11:36 Creatine Kinase 32 CK-MB (CK-2) 0.37 Troponin I < 0.012 Impressions: Head CT 04/30/20 16:48 IMPRESSION: NORMAL BRAIN CT WITHOUT CONTRAST. EVIDENCE OF ACUTE STROKE: NO. Chest X-Ray 05/02/20 00:00 IMPRESSION: No acute findings Assessment and Plan - Diagnosis (1) Syncope due to orthostatic hypotension Is this a current diagnosis for this admission?: Yes Plan: - Resolved - reports brought in due to syncopal episode, unwitnessed - noted ot be hypotensive in the ED 90s over 40s - EKG sinus rhythm - Troponin negative - lactic acid normal - CT head negative - syncope likely from hypotension, less likely cardiogenic or septic - will hold lasix and amlodipine for now - echo EF normal, prosthetic mitral valve appears to open well, mild pulm hypertension - monitor in tele (2) Supratherapeutic INR Is this a current diagnosis for this admission?: Yes Plan: - on warfarin due to A.fib and mitral valve repair - INR 8>5.4>3.5 no bleeding - she was given 2mg PO vitamin K in the ED - restarted on Warfarin. i have confirmed her dose with her niece and she said sunday and sunday 2 mg then 1 mg the rest of the days. - coumadin pharmacy dosing ordered (3) History of mitral valve repair Is this a current diagnosis for this admission?: Yes Plan: - hz of repair 5 years ago - on Warfarin 2 mg and 1 mg on alternate days - INR 8.9>5.4>3.5 - warfarin resumed today. Target INR 2.5-3.5 for mitral valve - Echo normal EF, good valve opening (4) HTN (hypertension) Qualifiers: Hypertension type: essential hypertension Qualified Code(s): I10 - Essential (primary) hypertension Is this a current diagnosis for this admission?: Yes Plan: - on lasix and amlodipine - will hold due to hypotension (5) HLD (hyperlipidemia) Is this a current diagnosis for this admission?: Yes Plan: - continue lipitor (6) [id number] renal failure Qualifiers: Acute renal failure type: unspecified Chronic kidney disease stage: stage 4 (severe) Qualified Code(s): N17.9 - Acute kidney failure, unspecified; N18.4 - Chronic kidney disease, stage 4 (severe) Is this a current diagnosis for this admission?: Yes Plan: - Crea 3.09> 2.3>1.9 from baseline of 2 - likely 2/2 hypotension (7) Leukocytosis Qualifiers: Leukocytosis type: other Qualified Code(s): D72.828 - Other elevated white blood cell count Is this a current diagnosis for this admission?: Yes Plan: - WBC 15.4>10.8>22 - UA and chest XR clear - given 1 dose of rocephin - UA growing e coli - will resume abx with rocephin (8) Atrial fibrillation Qualifiers: Atrial fibrillation type: paroxysmal Qualified Code(s): I48.0 - Paroxysmal atrial fibrillation Is this a current diagnosis for this admission?: Yes Plan: - on warfarin and amiodarone - rate and rhythm controlled - warfarin resumed - continue amio. TSH 1.38 (9) Elevated LFTs Is this a current diagnosis for this admission?: Yes Plan: - AST 526>391>2, ALT 447>420 - ordered hepatitis panel still pending - can still be from hypotension - will continue to monitor daily (10) Poor appetite Is this a current diagnosis for this admission?: Yes Plan: -According to her her appetite has been poor for the past several months -PHQ 9 screen showed mild depression. May benefit from mirtazapine both for mood and appetite - behavioral health consulted. No recommendations for antidepressant (11) Physical deconditioning Is this a current diagnosis for this admission?: Yes Plan: - would need rehab - discharge planning consulted - Time Time Spent with patient: 25-34 minutes Medications reviewed and adjusted accordingly: Yes Anticipated [facility]charge [facility] Anticipated Discharge Timeframe: TBD
[2020-05-03] MEDS: WARFARIN SODIUM 1 MG TABLET PO SCH (22:20)
[2020-05-04] MEDS: NORMAL SALINE 1000 ML 1,000 ML IV PRN (01:31)
[2020-05-04 05:12] LABS: APPEARANCE,URINE CLEAR; BILIRUBIN,URINE NEGATIVE (NEGATIVE); COLOR,URINE YELLOW; GLUCOSE, URINE NEGATIVE (NEGATIVE); KETONES,URINE NEGATIVE (NEGATIVE); LEUKOCYTE ESTERASE,URINE TRACE (NEGATIVE); NITRITE,URINE NEGATIVE (NEGATIVE); PROTEIN,URINE NEGATIVE (NEGATIVE); URINE SPECIFIC GRAVITY 1.014; UROBILINOGEN,URINE NEGATIVE mg/dL (<2.0)
[2020-05-04] MEDS: PANTOPRAZOLE SODIUM 40 MG TABLET.DR PO SCH (05:36)
[2020-05-04 07:02] LABS: INTERNATIONAL RATION (INR) 2.74; PROTHROMBIN TIME 28.9 SEC (11.4-15.4)
[2020-05-04 07:38] LABS: HEPATITS B SURFACE ANTIGEN Negative (Negative)
[2020-05-04 07:44] LABS: HEPATITIS C VIRUS ANTIBODY <0.1 s/co ratio (0.0-0.9)
[2020-05-04] MEDS: CEFTRIAXONE 2 GM/D5W RTU 2 GM/50 ML RTUPB IV SCH (10:53)
[2020-05-04 12:03] LABS: HEMATOCRIT 28.5 % (36.0-47.0); HEMOGLOBIN 9.6 g/dL (12.0-15.5); MEAN CORPUSCULAR HEMOGLOBIN 31.1 pg (27.0-33.4); MEAN CORPUSCULAR HGB CONC 33.8 g/dL (32.0-36.0); MEAN CORPUSCULAR VOLUME 92 fl (80-97); PLATELET COUNT 275 10^3/uL (150-450); RED CELL DISTRIBUTION WIDTH 18.8 % (11.5-14.0); WHITE BLOOD COUNT 17.5 10^3/uL (4.0-10.5)
[2020-05-04 12:24] LABS: ANION GAP 7 (5-19); BLOOD UREA NITROGEN 23 mg/dL (7-20); CALCIUM 8.2 mg/dL (8.4-10.2); CARBON DIOXIDE 15 mmol/L (22-30); CHLORIDE 115 mmol/L (98-107); GLUCOSE 119 mg/dL (75-110); POTASSIUM 4.5 mmol/L (3.6-5.0)
[2020-05-04] MEDS ORDERED: FUROSEMIDE INJ/PF 20 MG/2 ML SDV IV ONE (16:50)
[2020-05-04] MEDS: IPRATROPIUM/ALBUTEROL 0.5-2.5 MG/3 ML AMPUL NEB PRN (17:16)
[2020-05-04] MEDS: ACETAMINOPHEN 325 MG TABLET PO PRN (17:28)
--- NOTE | 2020-05-04 18:09 | PDOC PROGRESS REPORT ---
Subjective Date:: 05/04/20 Subjective:: NAEO. Today, she is feeling more SOB. Requiring 2-3 L O2 via NC. Reason For Visit: SYNCOPE Physical Exam Vital Signs: Temp Pulse Resp BP Pulse Ox 98.1 F 95 22 H 131/50 H 94 05/04/20 12:25 05/04/20 17:18 05/04/20 17:18 05/04/20 12:25 05/04/20 17:18 Intake & Output 05/03/20 05/04/20 05/05/20 06:59 06:59 06:59 Intake Total 2436 1286 985 Output Total 730 800 375 Balance 1706 486 610 Weight 62.5 kg 63.8 kg General appearance: PRESENT: cooperative Head exam: PRESENT: atraumatic Eye exam: ABSENT: scleral icterus Mouth exam: PRESENT: moist Throat exam: ABSENT: post pharyngeal erythema Neck exam: PRESENT: JVD Respiratory exam: PRESENT: crackles, tachypnea, wheezes Cardiovascular exam: PRESENT: RRR GI/Abdominal exam: PRESENT: normal bowel sounds, soft. ABSENT: tenderness Gentrourinary exam: PRESENT: indwelling catheter Extremities exam: PRESENT: +1 edema Neurological exam: PRESENT: alert, awake, oriented to person, oriented to place, oriented to time, oriented to situation Psychiatric exam: PRESENT: anxious Skin exam: ABSENT: rash Results Laboratory Results: 05/04/20 11:17 05/04/20 11:17 05/04/20 05/04/20 05/04/20 04:17 06:18 06:18 WBC Cancelled RBC Cancelled Hgb Cancelled Hct Cancelled MCV Cancelled MCH Cancelled MCHC Cancelled RDW Cancelled Plt Count Cancelled Sodium Cancelled Potassium Cancelled Chloride Cancelled Carbon Dioxide Cancelled Anion Gap Cancelled BUN Cancelled Creatinine Cancelled Est GFR ( Amer) Cancelled Est GFR (Non-Af Amer) Cancelled Glucose Cancelled Calcium Cancelled Magnesium Cancelled Urine Color YELLOW Urine Appearance CLEAR Urine pH 5.0 Ur Specific [place] 1.014 Urine Protein NEGATIVE Urine Glucose (UA) NEGATIVE Urine Ketones NEGATIVE Urine Blood SMALL H Urine Nitrite NEGATIVE Ur Leukocyte Esterase TRACE H Urine WBC (Auto) 4 Urine RBC (Auto) 3 05/04/20 05/04/20 11:17 11:17 WBC 17.5 H RBC 3.10 L Hgb 9.6 L Hct 28.5 L MCV 92 MCH 31.1 MCHC 33.8 RDW 18.8 H Plt Count 275 Sodium 136.6 L Potassium 4.5 Chloride 115 H Carbon Dioxide 15 L Anion Gap 7 BUN 23 H Creatinine 1.36 H Est GFR ( Amer) 45 L Est GFR (Non-Af Amer) Glucose 119 H Calcium 8.2 L Magnesium 2.0 Urine Color Urine Appearance Urine pH Ur Specific [place] Urine Protein Urine Glucose (UA) Urine Ketones Urine Blood Urine Nitrite Ur Leukocyte Esterase Urine WBC (Auto) Urine RBC (Auto) 04/30/20 04/30/20 11:36 11:36 Creatine Kinase 32 CK-MB (CK-2) 0.37 Troponin I < 0.012 Impressions: Head CT 04/30/20 16:48 IMPRESSION: NORMAL BRAIN CT WITHOUT CONTRAST. EVIDENCE OF ACUTE STROKE: NO. Chest X-Ray 05/02/20 00:00 IMPRESSION: No acute findings Assessment and Plan - Diagnosis (1) Acute on chronic diastolic (congestive) heart failure Is this a current diagnosis for this admission?: Yes (2) [id number] renal failure Qualifiers: Acute renal failure type: unspecified Chronic kidney disease stage: stage 4 (severe) Qualified Code(s): N17.9 - Acute kidney failure, unspecified; N18.4 - Chronic kidney disease, stage 4 (severe) Is this a current diagnosis for this admission?: Yes (3) Dehydration Is this a current diagnosis for this admission?: Yes (4) Hypotension Qualifiers: Hypotension type: orthostatic hypotension Qualified Code(s): I95.1 - Orthostatic hypotension Is this a current diagnosis for this admission?: Yes (5) Leukocytosis Qualifiers: Leukocytosis type: other Qualified Code(s): D72.828 - Other elevated white blood cell count Is this a current diagnosis for this admission?: Yes (6) Physical deconditioning Is this a current diagnosis for this admission?: Yes (7) Supratherapeutic INR Is this a current diagnosis for this admission?: Yes (8) Syncope due to orthostatic hypotension Is this a current diagnosis for this admission?: Yes - Plan Summary Summary: JJ MCKEON is an 85 year old female with PMH of atrial fibrillation on warfarin, mitral valve replacement, HLD, HTN, COPD who presented due to syncope. She was apparently using her walker and was walking towards a chair and the next thing she remembers is waking up on the floor on her side. She denied any pre syncopal symptoms like palpitation, headache, diaphoresis, chest pain. She did not have any bowel/bladder incontinence. Her syncopal episode was unwitnessed and she is not sure how long she was out but she stated it couldn't have been more than a few minutes. She called EMS and she was subsequently taken to the ED. She denied any recent change to her medications. She did admit to have previous fall episodes and being unsteady on her feet. She denied any recent illness, no cough, no diarrhea. She has had poor appetite and poor oral intake which has been going on for months. In the ED, BP 93/44, HR 74, RR 23, afebrile, O2 sat 96% on RA. CBC showed a WBC count of 15.4, Hgb 11.7. CMP showed a Cr of 3.08, increased from 2.02 in June. Orthostatic Syncope Dehydration Pre-renal JACINTO - due to dehydration and resolved with IVF hydration. She has had no further syncopal episodes or abnormalities noted on telemetry. Orthostatic Hypotension: due to above, resolved with IVF hydration - hold home antihypertensives (normotensive) Acute Hypoxemic Respiratory Failure Acute on Chronic Diastolic CHF Exacerbation - due to excessive IVF hydration - DC IVF - check CXR - start gentle diuresis with Lasix 20 mg IV daily - Duo-Nebs PRN - wean off supplemental O2 as tolerated - IS Generalized Weakness - PT/OT - fall precautions E coli UTI - receiving treatment with ceftriaxone - plan to DC Norris catheter tomorrow AM Leukocytosis: remained afebrile throughout hospitalization - likely due to UTI and stress of hospitalization - CXR 04/30 and 05/02 showed no evidence of PNA - she denies abdominal pain or diarrhea Chronic Atrial Fibrillation: rate controlled - continue warfarin Constipation - start bowel regimen DVT ppx: INR >2 Dispo: awaiting discharge to SNF. COVID testing ordered in preparation for placement. - Time Time Spent with patient: 35 or more minutes Anticipated Discharge Disposition: [facility] Anticipated Discharge Timeframe: within 24 hours
--- NOTE | 2020-05-04 18:30 | RADIOLOGY REPORT (SQ) ---
EXAM DESCRIPTION: CHEST SINGLE VIEW IMAGES COMPLETED DATE/TIME: 05/04/2020 6:20 pm REASON FOR STUDY: increased work of breathing COMPARISON: 05/02/2020 EXAM PARAMETERS: NUMBER OF VIEWS: One view. TECHNIQUE: Single frontal radiographic view of the chest acquired. RADIATION DOSE: NA LIMITATIONS: None. FINDINGS: LUNGS AND PLEURA: Small left pleural effusion. Small right pleural effusion. Ill-defined retrocardiac opacification on the left. Ill-defined opacification in the inferior aspect of the rig ht upper lobe. MEDIASTINUM AND HILAR STRUCTURES: No masses. Contour normal. HEART AND VASCULAR STRUCTURES: Heart normal in size. Normal vasculature. BONES: No acute findings. HARDWARE: None in the chest. OTHER: No other significant finding. IMPRESSION: Small pleural effusions. Cannot exclude limited pneumonia in the left base and in the r ight upper lobe. TECHNICAL DOCUMENTATION: JOB ID: [id number] 2010 [employer]- All Rights Reserved Reading location - IP/workstation name: [email or web address]
[2020-05-04] MEDS: POLYETHYLENE GLYCOL 3350 POWDER 17 GM/1 PACKET PO SCH (19:54)
[2020-05-04] MEDS: SENNOSIDES/DOCUSATE 8.6-50 MG 1 EACH TABLET PO SCH (19:54)
[2020-05-04] MEDS: WARFARIN SODIUM 2 MG TABLET PO SCH (22:18)
[2020-05-05] MEDS: IPRATROPIUM/ALBUTEROL 0.5-2.5 MG/3 ML AMPUL NEB PRN ×2 (02:33→07:57)
[2020-05-05] MEDS: PANTOPRAZOLE SODIUM 40 MG TABLET.DR PO SCH (06:58)
[2020-05-05 07:05] LABS: HEMATOCRIT 27.2 % (36.0-47.0); MEAN CORPUSCULAR HEMOGLOBIN 30.6 pg (27.0-33.4); MEAN CORPUSCULAR HGB CONC 33.2 g/dL (32.0-36.0); MEAN CORPUSCULAR VOLUME 92 fl (80-97); PLATELET COUNT 219 10^3/uL (150-450); RED BLOOD COUNT 2.95 10^6/uL (3.72-5.28); RED CELL DISTRIBUTION WIDTH 19.2 % (11.5-14.0); WHITE BLOOD COUNT 14.7 10^3/uL (4.0-10.5)
[2020-05-05 07:09] LABS: INTERNATIONAL RATION (INR) 2.83; PROTHROMBIN TIME 29.6 SEC (11.4-15.4)
[2020-05-05 07:28] LABS: ALBUMIN 2.5 g/dL (3.5-5.0); ALKALINE PHOSPHATASE 73 U/L (38-126); ANION GAP 6 (5-19); ASPARTATE AMINO TRANSFERASE 148 U/L (14-36); BILIRUBIN,DIRECT 0.5 mg/dL (0.0-0.4); BILIRUBIN,TOTAL 1.2 mg/dL (0.2-1.3); BLOOD UREA NITROGEN 18 mg/dL (7-20); CALCIUM 8.4 mg/dL (8.4-10.2); CARBON DIOXIDE 20 mmol/L (22-30); CHLORIDE 112 mmol/L (98-107); GLUCOSE 113 mg/dL (75-110); POTASSIUM 4.3 mmol/L (3.6-5.0); TOTAL PROTEIN 4.7 g/dL (6.3-8.2)
[2020-05-05] MEDS: FUROSEMIDE INJ/PF 40 MG/4 ML SDV IV SCH ×2 (09:27→21:50)
[2020-05-05] MEDS: SENNOSIDES/DOCUSATE 8.6-50 MG 1 EACH TABLET PO SCH ×2 (09:27→19:09)
[2020-05-05] MEDS: POLYETHYLENE GLYCOL 3350 POWDER 17 GM/1 PACKET PO SCH ×2 (09:28→19:09)
[2020-05-05] MEDS: CYANOCOBALAMIN (VITAMIN B-12) 1,000 MCG TABLET PO SCH (09:29)
[2020-05-05] MEDS: CALCIUM CARBONATE 600 MG TABLET PO SCH (09:29)
[2020-05-05] MEDS: CHOLECALCIFEROL (D3) 1,000 UNIT (25 MCG) TABLET PO SCH (09:29)
[2020-05-05] MEDS: MAGNESIUM OXIDE 400 MG TABLET PO SCH (09:30)
[2020-05-05] MEDS: CEFTRIAXONE 2 GM/D5W RTU 2 GM/50 ML RTUPB IV SCH (09:30)
[2020-05-05] MEDS ORDERED: CALCIUM CARBONATE 500 MG PO SCH (10:00)
[2020-05-05] MEDS ORDERED: FUROSEMIDE INJ/PF 20 MG/2 ML SDV IV SCH (10:00)
[2020-05-05 10:58] LABS: APPEARANCE,URINE CLEAR; BILIRUBIN,URINE NEGATIVE (NEGATIVE); COLOR,URINE STRAW; GLUCOSE, URINE NEGATIVE (NEGATIVE); KETONES,URINE NEGATIVE (NEGATIVE); LEUKOCYTE ESTERASE,URINE NEGATIVE (NEGATIVE); NITRITE,URINE NEGATIVE (NEGATIVE); PROTEIN,URINE NEGATIVE (NEGATIVE); URINE SPECIFIC GRAVITY 1.005; UROBILINOGEN,URINE NEGATIVE mg/dL (<2.0)
[2020-05-05] MEDS ORDERED: AMLODIPINE BESYLATE 2.5 MG TABLET PO ONE (11:52)
[2020-05-05] MEDS: AMIODARONE HCL 200 MG TABLET PO SCH (11:57)
[2020-05-05] MEDS ORDERED: AMLODIPINE BESYLATE 5 MG TABLET PO ONE (12:15)
[2020-05-05] MEDS ORDERED: METOPROLOL SUCCINATE 25 MG TAB.SR.24H PO ONE (12:30)
--- NOTE | 2020-05-05 16:41 | PDOC PROGRESS REPORT ---
Subjective Date:: 05/05/20 Subjective:: Overnight, had SOB, [place] and O2 needs increased from 2 to 3 LPM via NC. This morning, she is nauseated but otherwise states she feels "fine." She is clearly dyspnic during our conversation, but when I ask her if she is SOB, she tells me that she is feeling better. She denies chest pain, chest pressure, dizziness, pre-syncope, palpitations, abdominal pain, diarrhea. She does feel constipated and has not had a BM for 5 days, but states that this is normal for her, and she sometimes goes as long as 1 week without a BM at home. Reason For Visit: SYNCOPE Physical Exam Vital Signs: Temp Pulse Resp BP Pulse Ox 98.5 F 104 H 21 H 149/59 H 92 05/05/20 11:08 05/05/20 11:08 05/05/20 11:08 05/05/20 11:08 05/05/20 11:08 Intake & Output 05/04/20 05/05/20 05/06/20 06:59 06:59 06:59 Intake Total 1286 1275 50 Output Total 800 2275 Balance 486 -1000 50 Weight 63.8 kg 63.2 kg General appearance: PRESENT: no acute distress, cooperative Eye exam: ABSENT: scleral icterus Mouth exam: PRESENT: moist Throat exam: ABSENT: post pharyngeal erythema Neck exam: PRESENT: JVD Respiratory exam: PRESENT: crackles, tachypnea, wheezes Cardiovascular exam: PRESENT: tachycardia GI/Abdominal exam: PRESENT: normal bowel sounds, soft. ABSENT: distended, firm, guarding, mass, Rivera's sign, rebound, rigid, tenderness Gentrourinary exam: PRESENT: indwelling catheter Extremities exam: PRESENT: +1 edema Neurological exam: PRESENT: alert, awake, oriented to person, oriented to place, oriented to time, oriented to situation Psychiatric exam: PRESENT: anxious Skin exam: ABSENT: jaundice Results Laboratory Results: 05/05/20 06:11 05/05/20 06:11 05/05/20 05/05/20 05/05/20 06:11 06:11 10:25 WBC 14.7 H RBC 2.95 L Hgb 9.0 L Hct 27.2 L MCV 92 MCH 30.6 MCHC 33.2 RDW 19.2 H Plt Count 219 Sodium 137.6 Potassium 4.3 Chloride 112 H Carbon Dioxide 20 L Anion Gap 6 BUN 18 Creatinine 1.32 H Est GFR ( Amer) 46 L Glucose 113 H Calcium 8.4 Magnesium 1.8 Total Bilirubin 1.2 AST 148 H Alkaline Phosphatase 73 Total Protein 4.7 L Albumin 2.5 L Urine Color STRAW Urine Appearance CLEAR Urine pH 5.0 Ur Specific [place] 1.005 Urine Protein NEGATIVE Urine Glucose (UA) NEGATIVE Urine Ketones NEGATIVE Urine Blood SMALL H Urine Nitrite NEGATIVE Ur Leukocyte Esterase NEGATIVE Urine WBC (Auto) 1 Urine RBC (Auto) 1 04/30/20 04/30/20 11:36 11:36 Creatine Kinase 32 CK-MB (CK-2) 0.37 Troponin I < 0.012 Impressions: Head CT 04/30/20 16:48 IMPRESSION: NORMAL BRAIN CT WITHOUT CONTRAST. EVIDENCE OF ACUTE STROKE: NO. Chest X-Ray 05/04/20 00:00 IMPRESSION: Small pleural effusions. Cannot exclude limited pneumonia in the left base and in the right upper lobe. Assessment and Plan - Diagnosis (1) Acute on chronic diastolic (congestive) heart failure Is this a current diagnosis for this admission?: Yes (2) [id number] renal failure Qualifiers: Acute renal failure type: unspecified Chronic kidney disease stage: stage 4 (severe) Qualified Code(s): N17.9 - Acute kidney failure, unspecified; N18.4 - Chronic kidney disease, stage 4 (severe) Is this a current diagnosis for this admission?: Yes (3) Dehydration Is this a current diagnosis for this admission?: Yes (4) Hypotension Qualifiers: Hypotension type: orthostatic hypotension Qualified Code(s): I95.1 - Orthostatic hypotension Is this a current diagnosis for this admission?: Yes (5) Leukocytosis Qualifiers: Leukocytosis type: other Qualified Code(s): D72.828 - Other elevated white blood cell count Is this a current diagnosis for this admission?: Yes (6) Physical deconditioning Is this a current diagnosis for this admission?: Yes (7) Supratherapeutic INR Is this a current diagnosis for this admission?: Yes (8) Syncope due to orthostatic hypotension Is this a current diagnosis for this admission?: Yes - Plan Summary Summary: JJ MCKEON is an 85 year old female with PMH of atrial fibrillation on warfarin, mitral valve replacement, HLD, HTN, COPD who presented due to syncope. She was apparently using her walker and was walking towards a chair and the next thing she remembers is waking up on the floor on her side. She denied any pre- syncopal symptoms like palpitation, headache, diaphoresis, chest pain. She did not have any bowel/bladder incontinence. Her syncopal episode was unwitnessed and she is not sure how long she was out. She called EMS and was subsequently taken to the ED. She denied any recent change to her medications. She did admit to have previous fall episodes and being unsteady on her feet. She denied any recent illness, no cough, no diarrhea. She has had poor appetite and poor oral intake which has been ongoing for months. In the ED, BP 93/44, HR 74, RR 23, afebrile, O2 sat 96% on RA. CBC showed a WBC count of 15.4, Hgb 11.7. CMP showed a Cr of 3.08, increased from 2.02 in June. Orthostatic Syncope Dehydration Pre-renal JACINTO - due to dehydration and resolved with IVF hydration. She has had no further syncopal episodes or abnormalities noted on telemetry. Orthostatic Hypotension: due to above - resolved with IVF hydration Acute Hypoxemic Respiratory Failure Acute on Chronic Diastolic CHF Exacerbation - due to over-hydration with IVF - CXR (05/04) shows pulmonary vascular congestion and bilateral pleural effusions - start diuresis with Lasix 40 mg IV BID - Duo-Nebs PRN - wean off supplemental O2 as tolerated - IS Generalized Weakness - PT/OT - OOB to chair TID - fall precautions E coli UTI - receiving treatment with ceftriaxone - plan to DC Norris catheter tomorrow Leukocytosis: remained afebrile throughout hospitalization - likely due to UTI and stress of hospitalization - no evidence of PNA on multiple CXR this admission - she denies abdominal pain or diarrhea Chronic Atrial Fibrillation - continue warfarin - restart home amio Constipation - start bowel regimen DVT ppx: INR >2 - Time Time Spent with patient: 35 or more minutes Anticipated Discharge Disposition: [facility] Facility Anticipated Discharge Timeframe: within 48 hours
[2020-05-05] MEDS: WARFARIN SODIUM 2 MG TABLET PO SCH (21:50)
[2020-05-05] MEDS: METOPROLOL SUCCINATE 25 MG TAB.SR.24H PO SCH (21:50)
[2020-05-05] MEDS ORDERED: AMLODIPINE BESYLATE 2.5 MG TABLET PO SCH (22:00)
[2020-05-06] MEDS: IPRATROPIUM/ALBUTEROL 0.5-2.5 MG/3 ML AMPUL NEB PRN ×4 (00:44→20:26)
[2020-05-06] MEDS: PANTOPRAZOLE SODIUM 40 MG TABLET.DR PO SCH (05:41)
[2020-05-06] MEDS: ACETAMINOPHEN 325 MG TABLET PO PRN (05:43)
[2020-05-06 07:00] LABS: VENOUS BLOOD HCO3 25.3 mmol/L (20-32); VENOUS BLOOD PH 7.43 (7.30-7.42)
[2020-05-06 07:05] LABS: HEMATOCRIT 27.4 % (36.0-47.0); HEMOGLOBIN 9.5 g/dL (12.0-15.5); MEAN CORPUSCULAR HEMOGLOBIN 31.4 pg (27.0-33.4); MEAN CORPUSCULAR HGB CONC 34.7 g/dL (32.0-36.0); MEAN CORPUSCULAR VOLUME 91 fl (80-97); PLATELET COUNT 257 10^3/uL (150-450); RED BLOOD COUNT 3.02 10^6/uL (3.72-5.28); WHITE BLOOD COUNT 18.3 10^3/uL (4.0-10.5)
[2020-05-06 07:06] LABS: INTERNATIONAL RATION (INR) 3.59; PROTHROMBIN TIME 35.5 SEC (11.4-15.4)
[2020-05-06 07:21] LABS: ANION GAP 5 (5-19); BLOOD UREA NITROGEN 17 mg/dL (7-20); CALCIUM 8.4 mg/dL (8.4-10.2); CARBON DIOXIDE 26 mmol/L (22-30); CHLORIDE 104 mmol/L (98-107); GLUCOSE 102 mg/dL (75-110); POTASSIUM 3.7 mmol/L (3.6-5.0)
[2020-05-06] MEDS: ONDANSETRON HCL INJ/PF 4 MG/2 ML SDV IV PRN (07:52)
[2020-05-06] MEDS ORDERED: AMLODIPINE BESYLATE 2.5 MG TABLET PO SCH (10:00)
[2020-05-06] MEDS: CEFTRIAXONE 2 GM/D5W RTU 2 GM/50 ML RTUPB IV SCH (10:13)
[2020-05-06] MEDS: FUROSEMIDE INJ/PF 40 MG/4 ML SDV IV SCH (10:14)
--- NOTE | 2020-05-06 10:38 | RADIOLOGY REPORT (SQ) ---
EXAM DESCRIPTION: ABDOMEN 2 VIEWS IMAGES COMPLETED DATE/TIME: 05/06/2020 9:55 am REASON FOR STUDY: concern for SBO vs ileus I48.91 UNSPECIFIED ATRIAL FIBRILLATION R55 SYNCOPE AND COLLAPSE I95.9 HYPOTENSION, UNSPECIFIED COMPARISON: 05/04/2020 NUMBER OF VIEWS: Two views. TECHNIQUE: Supine and erect/decubitus radiographic images of the abdomen acquired. LIMITATIONS: None. FINDINGS: FREE AIR: None. No abnormal gas collections. LUNG BASES: Stable appearance of multifocal increased interstitial markings and small bilateral pleur al effusions. BOWEL GAS PATTERN: There is a paucity of enteric gas. No air-fluid levels. CALCIFICATIONS: No suspicious calcifications. SOFT TISSUES: No gross mass or suggestion of organomegaly. HARDWARE: None in the abdomen. BONES: No acute fracture. No worrisome bone lesions. OTHER: No other significant finding. IMPRESSION: Paucity enteric gas without evidence of obstruction or ileus. Stable limited pulmonary exam. TECHNICAL DOCUMENTATION: JOB ID: [id number] 2010 [employer]- All Rights Reserved Reading location - IP/workstation name: [email or web address]
--- NOTE | 2020-05-06 11:17 | PDOC PROGRESS REPORT ---
Subjective Date:: 05/06/20 Subjective:: ALDENO. She had a small BM this morning. She endorsed nausea and received Zofran; she is now feeling much improved. Denies abdominal pain or diarrhea. Reason For Visit: SYNCOPE Physical Exam Vital Signs: Temp Pulse Resp BP Pulse Ox 98.8 F 84 24 H 113/72 88 L 05/06/20 07:30 05/06/20 09:54 05/06/20 09:54 05/06/20 07:30 05/06/20 09:54 Intake & Output 05/05/20 05/06/20 05/07/20 06:59 06:59 06:59 Intake Total 1275 596 Output Total 2275 1630 Balance -1000 -1034 Weight 63.2 kg 60.7 kg General appearance: PRESENT: no acute distress, cooperative Mouth exam: PRESENT: moist Throat exam: ABSENT: post pharyngeal erythema Neck exam: PRESENT: JVD. ABSENT: lymphadenopathy Respiratory exam: PRESENT: crackles, wheezes. ABSENT: tachypnea Cardiovascular exam: PRESENT: RRR GI/Abdominal exam: PRESENT: diminished bowel sounds, soft. ABSENT: distended, firm, guarding, Rivera's sign, rebound, rigid, tenderness Rectal exam: PRESENT: deferred Gentrourinary exam: ABSENT: indwelling catheter Extremities exam: PRESENT: +1 edema Musculoskeletal exam: PRESENT: ambulatory Neurological exam: PRESENT: alert, awake, oriented to person, oriented to place, oriented to time, oriented to situation Psychiatric exam: PRESENT: appropriate affect Skin exam: ABSENT: jaundice, rash Results Laboratory Results: 05/06/20 06:47 05/06/20 06:47 05/06/20 05/06/20 05/06/20 06:47 06:47 06:47 WBC 18.3 H RBC 3.02 L Hgb 9.5 L Hct 27.4 L MCV 91 MCH 31.4 MCHC 34.7 RDW 19.0 H Plt Count 257 VBG pH 7.43 H VBG pCO2 39.0 VBG HCO3 25.3 VBG Base Excess 1.0 Sodium 135.4 L Potassium 3.7 Chloride 104 Carbon Dioxide 26 Anion Gap 5 BUN 17 Creatinine 1.31 H Est GFR ( Amer) 46 L Glucose 102 Calcium 8.4 Magnesium 1.8 04/30/20 17:24 Blood Blood Culture - Final NO GROWTH IN 5 DAYS 04/30/20 15:36 Blood Blood Culture - Final NO GROWTH IN 5 DAYS 04/30/20 04/30/20 11:36 11:36 Creatine Kinase 32 CK-MB (CK-2) 0.37 Troponin I < 0.012 Impressions: Head CT 04/30/20 16:48 IMPRESSION: NORMAL BRAIN CT WITHOUT CONTRAST. EVIDENCE OF ACUTE STROKE: NO. Chest X-Ray 05/04/20 00:00 IMPRESSION: Small pleural effusions. Cannot exclude limited pneumonia in the left base and in the right upper lobe. Abdomen X-Ray 05/06/20 00:00 IMPRESSION: Paucity enteric gas without evidence of obstruction or ileus. Stable limited pulmonary exam. Assessment and Plan - Diagnosis (1) Acute on chronic diastolic (congestive) heart failure Is this a current diagnosis for this admission?: Yes (2) Dpetr-sg-nfixska renal failure Qualifiers: Acute renal failure type: unspecified Chronic kidney disease stage: stage 4 (severe) Qualified Code(s): N17.9 - Acute kidney failure, unspecified; N18.4 - Chronic kidney disease, stage 4 (severe) Is this a current diagnosis for this admission?: Yes (3) Dehydration Is this a current diagnosis for this admission?: Yes (4) Hypotension Qualifiers: Hypotension type: orthostatic hypotension Qualified Code(s): I95.1 - Or thostatic hypotension Is this a current diagnosis for this admission?: Yes (5) Leukocytosis Qualifiers: Leukocytosis type: other Qualified Code(s): D72.828 - Other elevated white blood cell count Is this a current diagnosis for this admission?: Yes (6) Physical deconditioning Is this a current diagnosis for this admission?: Yes (7) Supratherapeutic INR Is this a current diagnosis for this admission?: Yes (8) Syncope due to orthostatic hypotension Is this a current diagnosis for this admission?: Yes - Plan Summary Summary: JJ MCKEON is an 85 year old female with PMH of atrial fibrillation on warfarin, mitral valve replacement, HLD, HTN, COPD who presented due to syncope. She was apparently using her walker and was walking towards a chair and the next thing she remembers is waking up on the floor on her side. She denied any pre- syncopal symptoms like palpitation, headache, diaphoresis, chest pain. She did not have any bowel/bladder incontinence. Her syncopal episode was unwitnessed and she is not sure how long she was out. She called EMS and was subsequently taken to the ED. She denied any recent change to her medications. She did admit to having had previous fall episodes and being unsteady on her feet. She denied any recent illness, no cough, no diarrhea. She has had poor appetite and poor oral intake which has been ongoing for months. In the ED, BP 93/44, HR 74, RR 23, afebrile, O2 sat 96% on RA. CBC showed a WBC count of 15.4, Hgb 11.7. CMP showed a Cr of 3.08, increased from 2.02 in June. Orthostatic Syncope Dehydration Pre-renal JACINTO - due to dehydration and resolved with IVF hydration. She has had no further syncopal episodes or abnormalities noted on telemetry. Orthostatic Hypotension: due to above - resolved with IVF hydration Acute Hypoxemic Respiratory Failure Acute on Chronic Diastolic CHF Exacerbation - due to over-hydration with IVF - CXR now shows evidence of pulmonary vascular congestion and bilateral pleural effusions - continue diuresis with Lasix 40 mg IV BID - Duo-Nebs PRN - wean off supplemental O2 as tolerated - IS E coli UTI - receiving treatment with ceftriaxone - DC Norris catheter today Leukocytosis: she has remained afebrile throughout hospitalization but did have a Tm of 100.0 today. She has increasing leukocytosis of unclear etiology. CXR shows volume overload but no clear PNA. AXR does not show evidence of SBO or ileus. She does not have abdominal pain or diarrhea to suggest C diff infection. She has already had negative BCx x2. We will remove Norris catheter today. Repeat BCx. She is still receiving antibiotics for treatment of known UTI, as per above, and I do not see any reason to broaden her therapy at this point. She is unlikely to have a PE/DVT given supratherapeutic or therapeutic INR throughout the hospital stay. - likely due to UTI and stress of hospitalization - continue to monitor closely - daily CBC Generalized Weakness - PT/OT - OOB to chair TID - fall precautions Chronic Atrial Fibrillation: rate controlled - continue warfarin - continue amio, metoprolol Constipation: last BM 05/06 - bowel regimen in place DVT ppx: INR >2 - Time Time Spent with patient: 35 or more minutes Anticipated Discharge Disposition: Assisted Facility Anticipated Discharge Timeframe: within 48 hours
[2020-05-06] MEDS: POLYETHYLENE GLYCOL 3350 POWDER 17 GM/1 PACKET PO SCH ×4 (11:57→17:05)
[2020-05-06] MEDS: SENNOSIDES/DOCUSATE 8.6-50 MG 1 EACH TABLET PO SCH ×2 (11:57→17:05)
[2020-05-06] MEDS: MAGNESIUM OXIDE 400 MG TABLET PO SCH (11:58)
[2020-05-06] MEDS: AMIODARONE HCL 200 MG TABLET PO SCH (11:59)
[2020-05-06] MEDS: CYANOCOBALAMIN (VITAMIN B-12) 1,000 MCG TABLET PO SCH (11:59)
[2020-05-06] MEDS: CALCIUM CARBONATE 600 MG TABLET PO SCH (11:59)
[2020-05-06] MEDS: CHOLECALCIFEROL (D3) 1,000 UNIT (25 MCG) TABLET PO SCH (11:59)
[2020-05-06] MEDS ORDERED: WARFARIN SODIUM 1 MG TABLET PO SCH (22:00)
[2020-05-06] MEDS: METOPROLOL SUCCINATE 25 MG TAB.SR.24H PO SCH (22:33)
[2020-05-07] MEDS ORDERED: BENZOCAINE/MENTHOL SORE THROAT LOZENGE BUCCAL PRN (01:12)
[2020-05-07] MEDS: PANTOPRAZOLE SODIUM 40 MG TABLET.DR PO SCH (06:15)
[2020-05-07 06:22] LABS: INTERNATIONAL RATION (INR) 4.93; PROTHROMBIN TIME 45.3 SEC (11.4-15.4)
[2020-05-07 08:12] LABS: HEMATOCRIT 24.2 % (36.0-47.0); HEMOGLOBIN 8.3 g/dL (12.0-15.5); MEAN CORPUSCULAR HEMOGLOBIN 31.2 pg (27.0-33.4); MEAN CORPUSCULAR HGB CONC 34.3 g/dL (32.0-36.0); MEAN CORPUSCULAR VOLUME 91 fl (80-97); PLATELET COUNT 231 10^3/uL (150-450); RED BLOOD COUNT 2.66 10^6/uL (3.72-5.28); RED CELL DISTRIBUTION WIDTH 19.3 % (11.5-14.0); WHITE BLOOD COUNT 16.5 10^3/uL (4.0-10.5)
[2020-05-07 08:44] LABS: ANION GAP 6 (5-19); BLOOD UREA NITROGEN 24 mg/dL (7-20); CARBON DIOXIDE 27 mmol/L (22-30); CHLORIDE 102 mmol/L (98-107); GLUCOSE 89 mg/dL (75-110); POTASSIUM 3.2 mmol/L (3.6-5.0)
[2020-05-07] MEDS: SENNOSIDES/DOCUSATE 8.6-50 MG 1 EACH TABLET PO SCH ×2 (09:22→17:27)
[2020-05-07] MEDS: CYANOCOBALAMIN (VITAMIN B-12) 1,000 MCG TABLET PO SCH (09:23)
[2020-05-07] MEDS: MAGNESIUM OXIDE 400 MG TABLET PO SCH (09:23)
[2020-05-07] MEDS: CALCIUM CARBONATE 600 MG TABLET PO SCH (09:23)
[2020-05-07] MEDS: POLYETHYLENE GLYCOL 3350 POWDER 17 GM/1 PACKET PO SCH ×2 (09:23→17:27)
[2020-05-07] MEDS: CHOLECALCIFEROL (D3) 1,000 UNIT (25 MCG) TABLET PO SCH (09:23)
[2020-05-07] MEDS: CEFEPIME HCL 2 GM in DEXTROSE 5%-WATER 50 ML IV SCH ×2 (09:28→21:43)
[2020-05-07] MEDS: AMIODARONE HCL 200 MG TABLET PO SCH (09:28)
[2020-05-07] MEDS ORDERED: FUROSEMIDE INJ/PF 40 MG/4 ML SDV IV SCH (10:00)
[2020-05-07] MEDS ORDERED: CEFEPIME 2 GM/D5W RTU 2 GM/50 ML RTUPB IV SCH (10:00)
[2020-05-07] MEDS ORDERED: IPRATROPIUM/ALBUTEROL 0.5-2.5 MG/3 ML AMPUL NEB SCH (11:30)
[2020-05-07 12:22] LABS: ARTERIAL BLOOD BASE EXCESS 2.6 mmol/L; ARTERIAL BLOOD FIO2 10L; ARTERIAL BLOOD H2CO3 1.16 mmol/L (1.05-1.35); ARTERIAL BLOOD HCO3 26.6 mmol/L (20-24); ARTERIAL BLOOD O2 SATURATION 95.4 % (94-98); ARTERIAL BLOOD PCO2 38.6 mmHg (35-45); ARTERIAL BLOOD PH 7.46 (7.35-7.45); ARTERIAL BLOOD TOTAL CO2 27.8 mmol/L (21-25)
[2020-05-07 12:54] LABS: APPEARANCE,URINE CLEAR; BILIRUBIN,URINE NEGATIVE (NEGATIVE); COLOR,URINE YELLOW; GLUCOSE, URINE NEGATIVE (NEGATIVE); KETONES,URINE NEGATIVE (NEGATIVE); LEUKOCYTE ESTERASE,URINE TRACE (NEGATIVE); NITRITE,URINE NEGATIVE (NEGATIVE); PROTEIN,URINE NEGATIVE (NEGATIVE); URINE SPECIFIC GRAVITY 1.009; UROBILINOGEN,URINE NEGATIVE mg/dL (<2.0)
--- NOTE | 2020-05-07 13:01 | RADIOLOGY REPORT (SQ) ---
EXAM DESCRIPTION: CHEST SINGLE VIEW IMAGES COMPLETED DATE/TIME: 05/07/2020 12:28 pm REASON FOR STUDY: difficulty breathing COMPARISON: AP view of the chest from 05/04/2020. EXAM PARAMETERS: NUMBER OF VIEWS: One view. TECHNIQUE: An AP view of the chest was obtained. RADIATION DOSE: NA LIMITATIONS: None. FINDINGS: LUNGS AND PLEURA: Increased patchy opacities in the mid left lung. The dense opacity in t he inferior aspect of the left hemithorax that obscures the contour of the left hemidiaphragm and stacy nts the left lateral costophrenic sulcus is also increased. There is no pneumothorax. MEDIASTINUM AND HILAR STRUCTURES: Stable mediastinal and hilar contours. HEART AND VASCULAR STRUCTURES: Stable cardiac silhouette. BONES: No acute findings. HARDWARE: Mediastinal surgical clips. OTHER: No other finding. IMPRESSION: Increased patchy opacities in the mid left lung and dense opacity in the inferior aspect of the left hemithorax. TECHNICAL DOCUMENTATION: JOB ID: [id number] 2010 [employer]- All Rights Reserved Reading location - IP/workstation name: [email or web address]
[2020-05-07] MEDS ORDERED: POTASSIUM CHLORIDE 20 MEQ PACKET PO ONE (14:57)
[2020-05-07] MEDS: FUROSEMIDE INJ/PF 40 MG/4 ML SDV IV SCH ×2 (15:31→21:42)
--- NOTE | 2020-05-07 16:28 | PDOC PROGRESS REPORT ---
Subjective Date:: 05/07/20 Subjective:: Patient seen resting in bed. She is noted to be exerting herself with respirations. She is on simple oxygen mask 10 L with O2 sat 93%. Patient complains of increased shortness of breath, facial congestion and nausea. Symptoms consistent with Covid, rapid test negative. Discussed with nursing tells me that patient's respiratory effort has progressively increased since yesterday. Vitals reviewed, pt previously maintaining opporpriate saturation on 5L NC. Of note, her O2 requirement has progressively increased over admission. Reason For Visit: SYNCOPE Physical Exam Vital Signs: Temp Pulse Resp BP Pulse Ox 98.8 F 84 18 123/50 L 92 05/07/20 14:29 05/07/20 14:29 05/07/20 14:29 05/07/20 14:29 05/07/20 14:29 Intake & Output 05/06/20 05/07/20 05/08/20 06:59 06:59 06:59 Intake Total 596 770 Output Total 1630 380 Balance -1034 390 Weight 60.7 kg 59.4 kg 59.4 kg Additional comments: General appearance: PRESENT: Cooperative, in acute respiratory distress Mouth exam: PRESENT: dry, tongue midline Throat exam: ABSENT: post pharyngeal erythema Neck exam: PRESENT: JVD. ABSENT: lymphadenopathy Respiratory exam: PRESENT: crackles bilateral lung bases, diffuse wheezes, tachypnea Cardiovascular exam: PRESENT: RRR GI/Abdominal exam: PRESENT: diminished bowel sounds, soft. ABSENT: distended, firm, guarding, tenderness Rectal exam: PRESENT: deferred Gentrourinary exam: PRESENT: indwelling catheter Extremities exam: PRESENT: +1 edema Musculoskeletal exam: PRESENT: ambulatory Neurological exam: PRESENT: alert, awake, oriented to person, oriented to place, oriented to time, oriented to situation Psychiatric exam: PRESENT: appropriate affect Skin exam: ABSENT: jaundice, rash Results Laboratory Results: 05/07/20 04:17 05/07/20 04:17 05/07/20 05/07/20 05/07/20 04:17 04:17 12:03 WBC 16.5 H RBC 2.66 L Hgb 8.3 L Hct 24.2 L MCV 91 MCH 31.2 MCHC 34.3 RDW 19.3 H Plt Count 231 Carbonic Acid 1.16 HCO3/H2CO3 Ratio 22:1 ABG pH 7.46 H ABG pCO2 38.6 ABG pO2 73.0 L ABG HCO3 26.6 H ABG O2 Saturation 95.4 ABG Base Excess 2.6 FiO2 10L Sodium 135.0 L Potassium 3.2 L Chloride 102 Carbon Dioxide 27 Anion Gap 6 BUN 24 H Creatinine 1.53 H Est GFR ( Amer) 39 L Glucose 89 Calcium 8.0 L Urine Color Urine Appearance Urine pH Ur Specific [place] Urine Protein Urine Glucose (UA) Urine Ketones Urine Blood Urine Nitrite Ur Leukocyte Esterase Urine WBC (Auto) Urine RBC (Auto) 05/07/20 12:30 WBC RBC Hgb Hct MCV MCH MCHC RDW Plt Count Carbonic Acid HCO3/H2CO3 Ratio ABG pH ABG pCO2 ABG pO2 ABG HCO3 ABG O2 Saturation ABG Base Excess FiO2 Sodium Potassium Chloride Carbon Dioxide Anion Gap BUN Creatinine Est GFR ( Amer) Glucose Calcium Urine Color YELLOW Urine Appearance CLEAR Urine pH 5.0 Ur Specific [place] 1.009 Urine Protein NEGATIVE Urine Glucose (UA) NEGATIVE Urine Ketones NEGATIVE Urine Blood SMALL H Urine Nitrite NEGATIVE Ur Leukocyte Esterase TRACE H Urine WBC (Auto) 3 Urine RBC (Auto) 7 04/30/20 04/30/20 11:36 11:36 Creatine Kinase 32 CK-MB (CK-2) 0.37 Troponin I < 0.012 Impressions: Head CT 04/30/20 16:48 IMPRESSION: NORMAL BRAIN CT WITHOUT CONTRAST. EVIDENCE OF ACUTE STROKE: NO. Abdomen X-Ray 05/06/20 00:00 IMPRESSION: Paucity enteric gas without evidence of obstruction or ileus. Stable limited pulmonary exam. Chest X-Ray 05/07/20 00:00 IMPRESSION: Increased patchy opacities in the mid left lung and dense opacity in the inferior aspect of the left hemithorax. Assessment and Plan - Diagnosis (1) Acute on chronic diastolic (congestive) heart failure Is this a current diagnosis for this admission?: Yes (2) [id number] renal failure Qualifiers: Acute renal failure type: unspecified Chronic kidney disease stage: stage 4 (severe) Qualified Code(s): N17.9 - Acute kidney failure, unspecified; N18.4 - Chronic kidney disease, stage 4 (severe) Is this a current diagnosis for this admission?: Yes (3) Dehydration Is this a current diagnosis for this admission?: Yes (5) Leukocytosis Qualifiers: Leukocytosis type: other Qualified Code(s): D72.828 - Other elevated white blood cell count Is this a current diagnosis for this admission?: Yes (6) Physical deconditioning Is this a current diagnosis for this admission?: Yes (7) Supratherapeutic INR Is this a current diagnosis for this admission?: Yes (8) Syncope due to orthostatic hypotension Is this a current diagnosis for this admission?: Yes (9) Acute respiratory failure with hypoxia and hypercapnia Is this a current diagnosis for this admission?: Yes (10) Urinary retention Is this a current diagnosis for this admission?: Yes (11) Hospital-acquired pneumonia Is this a current diagnosis for this admission?: Yes (12) COPD (chronic obstructive pulmonary disease) Qualifiers: COPD type: unspecified COPD Qualified Code(s): J44.9 - Chronic obstructive pulmonary disease, unspecified Is this a current diagnosis for this admission?: Yes - Plan Summary Summary: JJ MCKEON is an 85 year old female with PMH of atrial fibrillation on warfarin, mitral valve replacement, HLD, HTN, COPD who presented due to syncope. She was apparently using her walker and was walking towards a chair and the next thing she remembers is waking up on the floor on her side. She denied any pre- syncopal symptoms like palpitation, headache, diaphoresis, chest pain. She did not have any bowel/bladder incontinence. Her syncopal episode was unwitnessed and she is not sure how long she was out. She called EMS and was subsequently taken to the ED. She denied any recent change to her medications. She did admit to having had previous fall episodes and being unsteady on her feet. She denied any recent illness, no cough, no diarrhea. She has had poor appetite and poor oral intake which has been ongoing for months. In the ED, BP 93/44, HR 74, RR 23, afebrile, O2 sat 96% on RA. CBC showed a WBC count of 15.4, Hgb 11.7. CMP showed a Cr of 3.08, increased from 2.02 in June. Acute respiratory failure with hypoxia and hypercapnia Patient with increasing respiration effort/rate. Etiology is likely in nature including: HAP, CHF exacerbation/fluid overload, COPD exacerbation On 10L simple mask O2 sat 92%. ABG: pH 7.46, pO2 73.0, HCO3 27.8 - Initiate CPAP Hospital-acquired pneumonia Increasing difficulty breathing as above CXR 05/07 with increased patchy opacities in L lung. - Initiate Cefepime IV (05/07/2020) - CPAP as above Acute on Chronic Diastolic CHF Exacerbation - due to over-hydration with IVF - CXR now shows evidence of pulmonary vascular congestion and bilateral pleural effusions - continue diuresis with Lasix 40 mg IV BID - Duo-Nebs PRN - CPAP as above - IS COPD Patient with history COPD. - Blood gas resembles CO2 retention - Initiate steroid therapy Urinary retention Removal of Norris catheter failed 05/06. - Norris catheter replaced Pre-renal JACINTO - due to dehydration and resolved with IVF hydration. She has had no further syncopal episodes or abnormalities noted on telemetry. Orthostatic Hypotension: due to above - resolved with IVF hydration E coli UTI - receiving treatment with ceftriaxone Leukocytosis: she has remained afebrile throughout hospitalization. Single temp reading 100 yesterday (05/06). She has increasing leukocytosis of unclear etiology over hospital course. With decreased WBC today 18 -> 16. CXR shows volume overload but no clear PNA. AXR does not show evidence of SBO or ileus. Continues to refuse diarrhea, unlikely c.diff. She is still receiving antibiotics for treatment of known UTI, as per above. IV abx for HAP initiated as above. She is unlikely to have a PE/DVT given supratherapeutic or therapeutic INR throughout the hospital stay. - likely due to stress of hospitalization, acute UTI, HAP - BC without growth 24 hours - UC without growth 1 day Generalized Weakness - PT/OT - OOB to chair TID - fall precautions Chronic Atrial Fibrillation: rate controlled - continue warfarin - continue amio, metoprolol Constipation: last BM 05/06 - bowel regimen in place DVT ppx: INR >2 - Time Time Spent with patient: 35 or more minutes Medications reviewed and adjusted accordingly: Yes Anticipated Discharge Disposition: Care Home Facility Anticipated Discharge Timeframe: within 48 hours
[2020-05-07] MEDS: METHYLPREDNISOLONE INJ 40 MG/1 ML SDV IV SCH (21:42)
[2020-05-07] MEDS: WARFARIN SODIUM 1 MG TABLET PO SCH (21:42)
[2020-05-07] MEDS: METOPROLOL SUCCINATE 25 MG TAB.SR.24H PO SCH (21:42)
[2020-05-08] MEDS: PANTOPRAZOLE SODIUM 40 MG TABLET.DR PO SCH (05:50)
[2020-05-08] MEDS: FUROSEMIDE INJ/PF 40 MG/4 ML SDV IV SCH ×2 (05:50→15:55)
[2020-05-08 06:21] LABS: HEMATOCRIT 25.9 % (36.0-47.0); HEMOGLOBIN 8.7 g/dL (12.0-15.5); MEAN CORPUSCULAR HEMOGLOBIN 30.2 pg (27.0-33.4); MEAN CORPUSCULAR HGB CONC 33.6 g/dL (32.0-36.0); MEAN CORPUSCULAR VOLUME 90 fl (80-97); PLATELET COUNT 263 10^3/uL (150-450); RED BLOOD COUNT 2.88 10^6/uL (3.72-5.28); RED CELL DISTRIBUTION WIDTH 18.7 % (11.5-14.0); WHITE BLOOD COUNT 14.5 10^3/uL (4.0-10.5)
[2020-05-08 06:30] LABS: ARTERIAL BLOOD BASE EXCESS 0.6 mmol/L; ARTERIAL BLOOD H2CO3 1.08 mmol/L (1.05-1.35); ARTERIAL BLOOD HCO3 24.4 mmol/L (20-24); ARTERIAL BLOOD O2 SATURATION 90.2 % (94-98); ARTERIAL BLOOD PCO2 35.9 mmHg (35-45); ARTERIAL BLOOD PH 7.45 (7.35-7.45); ARTERIAL BLOOD TOTAL CO2 25.5 mmol/L (21-25)
[2020-05-08 06:33] LABS: ARTERIAL BLOOD FIO2 8L
[2020-05-08 07:28] LABS: INTERNATIONAL RATION (INR) 6.32; PROTHROMBIN TIME 54.8 SEC (11.4-15.4)
[2020-05-08] MEDS: CHOLECALCIFEROL (D3) 1,000 UNIT (25 MCG) TABLET PO SCH (10:56)
[2020-05-08] MEDS: CALCIUM CARBONATE 600 MG TABLET PO SCH (10:56)
[2020-05-08] MEDS: POLYETHYLENE GLYCOL 3350 POWDER 17 GM/1 PACKET PO SCH ×2 (10:56→18:53)
[2020-05-08] MEDS: CYANOCOBALAMIN (VITAMIN B-12) 1,000 MCG TABLET PO SCH (10:56)
[2020-05-08] MEDS: METHYLPREDNISOLONE INJ 40 MG/1 ML SDV IV SCH ×2 (10:56→21:51)
[2020-05-08] MEDS: SENNOSIDES/DOCUSATE 8.6-50 MG 1 EACH TABLET PO SCH ×2 (10:56→18:53)
[2020-05-08] MEDS: CEFEPIME HCL 2 GM in DEXTROSE 5%-WATER 50 ML IV SCH ×2 (10:56→21:52)
[2020-05-08] MEDS: MAGNESIUM OXIDE 400 MG TABLET PO SCH (10:56)
[2020-05-08] MEDS: AMIODARONE HCL 200 MG TABLET PO SCH (10:57)
[2020-05-08 11:23] LABS: ABSOLUTE RETICS # 0.127 10^6/uL (0.028-0.122); RETICULOCYTE COUNT (AUTO) 4.37 % (0.66-2.85)
[2020-05-08 12:10] LABS: ANION GAP 8 (5-19); BLOOD UREA NITROGEN 41 mg/dL (7-20); CALCIUM 8.6 mg/dL (8.4-10.2); CARBON DIOXIDE 29 mmol/L (22-30); CHLORIDE 99 mmol/L (98-107); GLUCOSE 177 mg/dL (75-110); IRON(TIBC) 30.8 ug/dL (37-170); POTASSIUM 3.7 mmol/L (3.6-5.0)
[2020-05-08 13:15] LABS: FOLATE 5.28 ng/mL (>2.76)
[2020-05-08] MEDS ORDERED: PHYTONADIONE 5 MG TABLET PO ONE (15:30)
--- NOTE | 2020-05-08 17:04 | PDOC PROGRESS REPORT ---
Subjective Date:: 05/08/20 Subjective:: Patient is seen resting upright in chair. When I enter the room she tells me that she is feeling significantly better than yesterday. She is on 10L NC with 90% O2 sat. Her SOB has improved, though is still present, specifically with exertion. GOC conversation had with patient and Dr. Hendrix. Please refer to ACP note. Discussed with nursing, no acute events overnight. Reason For Visit: SYNCOPE Physical Exam Vital Signs: Temp Pulse Resp BP Pulse Ox 98.5 F 84 16 121/47 L 91 L 05/08/20 12:04 05/08/20 12:04 05/08/20 12:04 05/08/20 12:04 05/08/20 12:04 Intake & Output 05/07/20 05/08/20 05/09/20 06:59 06:59 06:59 Intake Total 770 600 Output Total 380 600 400 Balance 390 -600 200 Weight 59.4 kg 58.3 kg Additional comments: General appearance: PRESENT: Cooperative, in no acute distress Neck exam: PRESENT: Full ROM, neck supple Respiratory exam: PRESENT: crackles bilateral lung bases, diffuse wheezes. ABSENT: Tachypnea Cardiovascular exam: PRESENT: RRR GI/Abdominal exam: PRESENT: normal bowel sounds, soft, non-tender Gentrourinary exam: PRESENT: indwelling catheter Extremities exam: PRESENT: +1 edema Musculoskeletal exam: PRESENT: ambulatory Neurological exam: PRESENT: alert, awake, oriented to person, oriented to place, oriented to time, oriented to situation Psychiatric exam: PRESENT: appropriate affect Skin exam: PRESENT: Multiple areas of ecchymosis bilateral upper extremities. Results Laboratory Results: 05/08/20 05:31 05/08/20 10:54 05/08/20 05/08/20 05/08/20 05:31 05:31 06:10 WBC 14.5 H RBC 2.88 L Hgb 8.7 L Hct 25.9 L MCV 90 MCH 30.2 MCHC 33.6 RDW 18.7 H Plt Count 263 Retic Count (auto) Cancelled Absolute Retic Cancelled Carbonic Acid 1.08 HCO3/H2CO3 Ratio 22:1 ABG pH 7.45 ABG pCO2 35.9 ABG pO2 55.0 L ABG HCO3 24.4 H ABG O2 Saturation 90.2 L ABG Base Excess 0.6 FiO2 8L Sodium Potassium Chloride Carbon Dioxide Anion Gap BUN Creatinine Est GFR ( Amer) Glucose Calcium Iron TIBC % Saturation Ferritin Vitamin B12 Folate 05/08/20 05/08/20 10:54 10:54 WBC RBC Hgb Hct MCV MCH MCHC RDW Plt Count Retic Count (auto) 4.37 H Absolute Retic Carbonic Acid HCO3/H2CO3 Ratio ABG pH ABG pCO2 ABG pO2 ABG HCO3 ABG O2 Saturation ABG Base Excess FiO2 Sodium 136.1 L Potassium 3.7 Chloride 99 Carbon Dioxide 29 Anion Gap 8 BUN 41 H Creatinine 1.79 H Est GFR ( Amer) 32 L Glucose 177 H Calcium 8.6 Iron 30.8 L TIBC 202 L % Saturation 15 Ferritin 283.00 H Vitamin B12 > 1000.0 H Folate 5.28 05/06/20 10:50 Catheterized Urine Urine Culture - Final NO GROWTH 2 DAYS 04/30/20 04/30/20 11:36 11:36 Creatine Kinase 32 CK-MB (CK-2) 0.37 Troponin I < 0.012 Impressions: Head CT 04/30/20 16:48 IMPRESSION: NORMAL BRAIN CT WITHOUT CONTRAST. EVIDENCE OF ACUTE STROKE: NO. Abdomen X-Ray 05/06/20 00:00 IMPRESSION: Paucity enteric gas without evidence of obstruction or ileus. Stable limited pulmonary exam. Chest X-Ray 05/07/20 00:00 IMPRESSION: Increased patchy opacities in the mid left lung and dense opacity in the inferior aspect of the left hemithorax. Assessment and Plan - Diagnosis (1) Acute on chronic diastolic (congestive) heart failure Is this a current diagnosis for this admission?: Yes (2) [id number] renal failure Qualifiers: Acute renal failure type: unspecified Chronic kidney disease stage: stage 4 (severe) Qualified Code(s): N17.9 - Acute kidney failure, unspecified; N18.4 - Chronic kidney disease, stage 4 (severe) Is this a current diagnosis for this admission?: Yes (3) Dehydration Is this a current diagnosis for this admission?: Yes (5) Leukocytosis Qualifiers: Leukocytosis type: other Qualified Code(s): D72.828 - Other elevated white blood cell count Is this a current diagnosis for this admission?: Yes (6) Physical deconditioning Is this a current diagnosis for this admission?: Yes (7) Supratherapeutic INR Is this a current diagnosis for this admission?: Yes (8) Syncope due to orthostatic hypotension Is this a current diagnosis for this admission?: Yes (9) Acute respiratory failure with hypoxia and hypercapnia Is this a current diagnosis for this admission?: Yes (10) Urinary retention Is this a current diagnosis for this admission?: Yes (11) Hospital-acquired pneumonia Is this a current diagnosis for this admission?: Yes (12) COPD (chronic obstructive pulmonary disease) Qualifiers: COPD type: unspecified COPD Qualified Code(s): J44.9 - Chronic obstructive pulmonary disease, unspecified Is this a current diagnosis for this admission?: Yes - Plan Summary Summary: JJ MCKEON is an 85 year old female with PMH of atrial fibrillation on warfarin, mitral valve replacement, HLD, HTN, COPD who presented due to syncope. She was apparently using her walker and was walking towards a chair and the next thing she remembers is waking up on the floor on her side. She denied any pre-syncopal symptoms like palpitation, headache, diaphoresis, chest pain. She did not have any bowel/bladder incontinence. Her syncopal episode was unwitnessed and she is not sure how long she was out. She called EMS and was subsequently taken to the ED. She denied any recent change to her medications. She did admit to having had previous fall episodes and being unsteady on her feet. She denied any recent illness, no cough, no diarrhea. She has had poor appetite and poor oral intake which has been ongoing for months. In the ED, BP 93/44, HR 74, RR 23, afebrile, O2 sat 96% on RA. CBC showed a WBC count of 15.4, Hgb 11.7. CMP showed a Cr of 3.08, increased from 2.02 in June. Acute respiratory failure with hypoxia and hypercapnia Pt placed on BiPAP yesterday due to increased oxygen demand. Currently on 10L NC with O2 sat 90%. Etiology is likely in nature including: HAP, CHF exacerbation/fluid overload, COPD exacerbation - Cnt supplemental O2 via NC - Initiate CPAP nightly - Scheduled [facility]-ac[facility] Increasing difficulty breathing as above CXR 05/07 with increased patchy opacities in L lung. - Initiate Cefepime IV (05/07/2020) - Supplemental O2 as above Acute on Chronic Diastolic CHF Exacerbation - due to over-hydration with IVF - CXR now shows evidence of pulmonary vascular congestion and bilateral pleural effusions - Most recent labs indicate appropriate diuresis. stop IV lasix at this time COPD Patient with history COPD. - Steroid therapy initiated 05/07 - With noted improvement, continue for total of 5 days. Urinary retention Removal of Norris catheter failed 05/06. - Norris catheter replaced Pre-renal JACINTO - due to dehydration and resolved with IVF hydration. She has had no further syncopal episodes or abnormalities noted on telemetry. Orthostatic Hypotension: due to above - resolved with IVF hydration E coli UTI - receiving treatment with ceftriaxone Leukocytosis: she has remained afebrile throughout hospitalization. Single temp reading 100 yesterday (05/06). Initially lab refelect steadily increasing WBC, reduction WBC toay. - CXR with PNA as above - IV abx for HAP initiated as above. She is unlikely to have a PE/DVT given supratherapeutic or therapeutic INR throughout the hospital stay. - likely due to stress of hospitalization, acute UTI, HAP - BC without growth 48 hrs - UC without growth Generalized Weakness - PT/OT - OOB to chair TID - fall precautions Chronic Atrial Fibrillation: rate controlled - Contacted by pharmacy INR elevated at 6.32 - Vitamin K initiated - Warfarin dosing as per pharmacy - continue amio, metoprolol Constipation: last BM 05/06 - bowel regimen in place - Time Time Spent with patient: 35 or more minutes Medications reviewed and adjusted accordingly: Yes Anticipated Discharge Disposition: Snf Facility Anticipated Discharge Timeframe: NA
--- NOTE | 2020-05-08 17:15 | ADVANCED CARE ---
- Diagnosis (1) Acute on chronic diastolic (congestive) heart failure Diagnosis Current: Yes (2) Jvfnc-[id number]-zntnnvf renal failure Diagnosis Current: Yes (3) Dehydration Diagnosis Current: Yes (4) Hypotension Diagnosis Current: Yes (5) Leukocytosis Diagnosis Current: Yes (6) Physical deconditioning Diagnosis Current: Yes (7) Supratherapeutic INR Diagnosis Current: Yes (8) Syncope due to orthostatic hypotension Diagnosis Current: Yes (9) Acute respiratory failure with hypoxia and hypercapnia Diagnosis Current: Yes (10) Urinary retention Diagnosis Current: Yes (11) Hospital-acquired pneumonia Diagnosis Current: Yes (12) COPD (chronic obstructive pulmonary disease) Diagnosis Current: Yes Attendance: Myself, Dr. Hendrix and patient were present during conversation. Resuscitation Status: Do Not Resuscitate Discussion: The gaol of this discussion was for myself and Dr. Hendrix to gain an understanding of what patient's goals are moving forward and to educate the patient of her current health status. Patient was informed that her health has gradually declined over hospital course despite appropriate medical treatment. She receives this information well and expresses understanding. She informs myself and Dr. Hendrix that she is understanding that she will likely not return to her independent self that she was prior to admission. She communicates that her goal is to get well enough in the hospital to get discharged to a SNF for acute rehab and to inevitably move into an assisted living facility with her . Patient is understanding that she may continue to deteriorate over co urse of hospitalization, despite appropriate medical treatment. She is understanding that it would be unsafe for her to return home with her at this time. She admits that her overall health has been gradually declining and that more so recently she has required more assistance at home. She confirms that her code status is DNR. She asks that I discuss this with her as well. Care Planning Goals: Patient's goal for this hospitalization is that she become stable enough to be discharged to SNF with rehab, such that she can move into an assisted living facility with her . Document(s) Completed: none Time Spent: 30 minutes
[2020-05-08] MEDS: IPRATROPIUM/ALBUTEROL 0.5-2.5 MG/3 ML AMPUL NEB SCH (18:40)
[2020-05-08] MEDS ORDERED: LORAZEPAM INJ 2 MG/1 ML VIAL IV ONE (21:30)
[2020-05-08] MEDS: METOPROLOL SUCCINATE 25 MG TAB.SR.24H PO SCH (21:51)
[2020-05-08] MEDS ORDERED: WARFARIN SODIUM 1 MG TABLET PO SCH (22:00)
[2020-05-08] MEDS ORDERED: WARFARIN SODIUM 2 MG TABLET PO SCH (22:00)
[2020-05-09] MEDS: IPRATROPIUM/ALBUTEROL 0.5-2.5 MG/3 ML AMPUL NEB SCH ×3 (03:31→14:42)
[2020-05-09 05:44] LABS: HEMATOCRIT 25.3 % (36.0-47.0); HEMOGLOBIN 8.5 g/dL (12.0-15.5); MEAN CORPUSCULAR HEMOGLOBIN 30.3 pg (27.0-33.4); MEAN CORPUSCULAR HGB CONC 33.6 g/dL (32.0-36.0); MEAN CORPUSCULAR VOLUME 90 fl (80-97); PLATELET COUNT 299 10^3/uL (150-450); RED CELL DISTRIBUTION WIDTH 19.6 % (11.5-14.0); WHITE BLOOD COUNT 27.9 10^3/uL (4.0-10.5)
[2020-05-09 06:00] LABS: ANION GAP 6 (5-19); BLOOD UREA NITROGEN 58 mg/dL (7-20); CARBON DIOXIDE 30 mmol/L (22-30); CHLORIDE 100 mmol/L (98-107); GLUCOSE 150 mg/dL (75-110); POTASSIUM 3.7 mmol/L (3.6-5.0)
[2020-05-09 06:26] LABS: INTERNATIONAL RATION (INR) 4.77; PROTHROMBIN TIME 44.1 SEC (11.4-15.4)
[2020-05-09] MEDS: PANTOPRAZOLE SODIUM 40 MG TABLET.DR PO SCH (06:51)
[2020-05-09] MEDS ORDERED: NORMAL SALINE 1000 ML 1,000 ML IV PRN ×2 (08:26→12:53)
[2020-05-09] MEDS ORDERED: OLANZAPINE 5 MG TABLET ONE (09:49)
[2020-05-09] MEDS: ONDANSETRON HCL INJ/PF 4 MG/2 ML SDV IV PRN (09:51)
[2020-05-09] MEDS ORDERED: CEFEPIME 1 GM/D5W RTU 1 GM/50 ML RTUPB IV SCH (10:00)
[2020-05-09] MEDS ORDERED: OLANZAPINE 5 MG TAB.RAPDIS PO PRN (10:01)
[2020-05-09] MEDS ORDERED: OLANZAPINE 2.5 MG TABLET PO PRN (10:14)
[2020-05-09] MEDS ORDERED: OLANZAPINE 5 MG TAB.RAPDIS PO ONE (10:30)
[2020-05-09] MEDS ORDERED: OLANZAPINE 2.5 MG TABLET PO ONE (10:44)
[2020-05-09] MEDS ORDERED: HALOPERIDOL LACTATE INJ 5 MG/1 ML VIAL ONE ×2 (11:05→13:08)
[2020-05-09] MEDS ORDERED: HALOPERIDOL LACTATE INJ 5 MG/1 ML VIAL IV ONE ×2 (12:00→15:00)
[2020-05-09] MEDS: AMIODARONE HCL 200 MG TABLET PO SCH (12:13)
[2020-05-09 12:53] LABS: C-REACTIVE PROTEIN 266.9 mg/L (<10.0)
[2020-05-09] MEDS ORDERED: VANCOMYCIN HCL 0 MG in DEXTROSE 5%-WATER 250 ML IV NR (13:00)
[2020-05-09] MEDS ORDERED: MORPHINE SULFATE 10 MG/ML INJ ONE (15:16)
[2020-05-09] MEDS ORDERED: HALOPERIDOL LACTATE INJ 5 MG/1 ML VIAL IV PRN (15:25)
--- NOTE | 2020-05-09 15:34 | ADVANCED CARE ---
- Diagnosis (1) Acute on chronic diastolic (congestive) heart failure Diagnosis Current: Yes (2) Ajzzy-nd-gbnmcer renal failure Diagnosis Current: Yes (3) Dehydration Diagnosis Current: Yes (4) Hypotension Diagnosis Current: Yes (5) Leukocytosis Diagnosis Current: Yes (6) Physical deconditioning Diagnosis Current: Yes (7) Supratherapeutic INR Diagnosis Current: Yes (8) Syncope due to orthostatic hypotension Diagnosis Current: Yes (9) Sepsis associated hypotension Diagnosis Current: Yes Attendance: Mr. Edmar Diop () and Ms. Magui Dupree (Niece) Resuscitation Status: Comfort Measures Only Discussion: I had a long conversation with Mrs. Diop regarding her goals of care yesterday afternoon. At that time, she wished to be DNR/DNI. We discussed that she has been progressively getting worse throughout her long hospital stay, despite all possible medical interventions. She told me that her goal was her comfort and independence, and to "not be a burden on family." I spoke with her and niece today regarding her continued decline. They tell me that they have talked with Mrs. Diop, who had expressed to them her wish for comfort measures if she continued to decline and to not receive "aggressive" interventions. Her wishes for her to be switched to comfort measures at this time, given her worsening mental status, agitation and anxiety with ongoing medical care. They are interested in pursuing hospice services, which I agree is appropriate given her continued to decline despite maximal medical therapy. Comfort measures orders placed. Nursing staff notified. Time Spent: >30 minutes
--- NOTE | 2020-05-09 15:46 | RADIOLOGY REPORT (SQ) ---
EXAM DESCRIPTION: ACUTE ABDOMEN SERIES IMAGES COMPLETED DATE/TIME: 05/09/2020 2:53 pm REASON FOR STUDY: increasing oxygen demand I48.91 UNSPECIFIED ATRIAL FIBRILLATION R55 SYNCOPE AND COLLAPSE I95.9 HYPOTENSION, UNSPECIFIED COMPARISON: None. NUMBER OF VIEWS: Two views TECHNIQUE: Frontal chest and a single abdomen radiographic images acquired. LIMITATIONS: None. FINDINGS: CHEST: Similar patchy and hazy densities through the lungs bilaterally. FREE AIR: No definite free air under the diaphragm. BOWEL GAS PATTERN: Limited few. No dilated bowel loops in the field of view. CALCIFICATIONS: No suspicious calcifications. HARDWARE: Unchanged mediastinal surgical clips. SOFT TISSUES: No gross mass or suggestion of organomegaly. BONES: No acute fracture. No worrisome bone lesions. OTHER: No other significant finding. IMPRESSION: Similar patchy and hazy pulmonary opacities bilaterally. Limited view of the abdomen without dilated loops of bowel in the field of view. TECHNICAL DOCUMENTATION: JOB ID: [id number] 2010 [employer]- All Rights Reserved Reading location - IP/workstation name: [email or web address]
[2020-05-09] MEDS ORDERED: VANCOMYCIN HCL 750 MG in DEXTROSE 5%-WATER 250 ML IV SCH (16:00)
[2020-05-09] MEDS ORDERED: MORPHINE SULFATE 10 MG/ML INJ IV ONE (16:00)
[2020-05-09] MEDS: CYANOCOBALAMIN (VITAMIN B-12) 1,000 MCG TABLET PO SCH (16:13)
[2020-05-09] MEDS: CHOLECALCIFEROL (D3) 1,000 UNIT (25 MCG) TABLET PO SCH (16:13)
[2020-05-09] MEDS: MAGNESIUM OXIDE 400 MG TABLET PO SCH (16:14)
[2020-05-09] MEDS: SENNOSIDES/DOCUSATE 8.6-50 MG 1 EACH TABLET PO SCH (16:14)
[2020-05-09] MEDS: CALCIUM CARBONATE 600 MG TABLET PO SCH (16:14)
[2020-05-09] MEDS: POLYETHYLENE GLYCOL 3350 POWDER 17 GM/1 PACKET PO SCH (16:14)
[2020-05-09] MEDS: MORPHINE SULFATE 10 MG/ML INJ IV PRN ×2 (16:19→20:36)
[2020-05-09] MEDS ORDERED: MORPHINE SULFATE 10 MG/ML INJ IV PRN (16:36)
[2020-05-09] MEDS ORDERED: PROMETHAZINE HCL INJ 25 MG/1 ML VIAL IV PRN (16:37)
--- NOTE | 2020-05-09 16:49 | PDOC PROGRESS REPORT ---
Subjective Date:: 05/09/20 Subjective:: Overnight, agitated and confused, attempting to get out of bed and pulling off IV/O2. She received Ativan. This morning, she continues to be agitated/delirious and requiring soft restraints. Reason For Visit: SYNCOPE Physical Exam Vital Signs: Temp Pulse Resp BP Pulse Ox 97.5 F 92 26 H 114/70 100 05/09/20 11:58 05/09/20 14:44 05/09/20 14:44 05/09/20 11:58 05/09/20 14:44 Intake & Output 05/08/20 05/09/20 05/10/20 06:59 06:59 06:59 Intake Total 840 50 Output Total 600 875 Balance -600 -35 50 Weight 58.3 kg 59.2 kg General appearance: PRESENT: disheveled, severe distress. ABSENT: cooperative Eye exam: ABSENT: scleral icterus Mouth exam: PRESENT: dry mucosa Teeth exam: PRESENT: edentulous Throat exam: ABSENT: post pharyngeal erythema Neck exam: ABSENT: JVD Respiratory exam: PRESENT: rhonchi, tachypnea, wheezes. ABSENT: crackles Cardiovascular exam: PRESENT: tachycardia GI/Abdominal exam: PRESENT: normal bowel sounds, soft. ABSENT: ascites, distended, firm, guarding, rebound, rigid, tenderness Rectal exam: PRESENT: deferred Gentrourinary exam: PRESENT: indwelling catheter Extremities exam: ABSENT: clubbing, pedal edema Neurological exam: PRESENT: altered Psychiatric exam: PRESENT: agitated, anxious Focused psych exam: PRESENT: psychomotor agitation Skin exam: PRESENT: other - multiple large ecchymoses all over back/arms/legs, no petechiae Results Laboratory Results: 05/09/20 05:06 05/09/20 05:06 05/09/20 05/09/20 05/09/20 05:06 05:06 11:30 WBC 27.9 H RBC 2.80 L Hgb 8.5 L Hct 25.3 L MCV 90 MCH 30.3 MCHC 33.6 RDW 19.6 H Plt Count 299 Sodium 136.3 L Potassium 3.7 Chloride 100 Carbon Dioxide 30 Anion Gap 6 BUN 58 H Creatinine 2.19 H Est GFR ( Amer) 26 L Glucose 150 H Lactic Acid 6.9 H Calcium 9.0 Ferritin C-Reactive Protein 05/09/20 11:30 WBC RBC Hgb Hct MCV MCH MCHC RDW Plt Count Sodium Potassium Chloride Carbon Dioxide Anion Gap BUN Creatinine Est GFR ( Amer) Glucose Lactic Acid Calcium Ferritin 485.00 H C-Reactive Protein 266.9 H 05/06/20 10:50 Catheterized Urine Urine Culture - Final NO GROWTH 2 DAYS 04/30/20 04/30/20 11:36 11:36 Creatine Kinase 32 CK-MB (CK-2) 0.37 Troponin I < 0.012 Impressions: Head CT 04/30/20 16:48 IMPRESSION: NORMAL BRAIN CT WITHOUT CONTRAST. EVIDENCE OF ACUTE STROKE: NO. Abdomen X-Ray 05/06/20 00:00 IMPRESSION: Paucity enteric gas without evidence of obstruction or ileus. Stable limited pulmonary exam. Chest X-Ray 05/07/20 00:00 IMPRESSION: Increased patchy opacities in the mid left lung and dense opacity in the inferior aspect of the left hemithorax. Acute Abdomen Series 05/09/20 00:00 IMPRESSION: Similar patchy and hazy pulmonary opacities bilaterally. Limited view of the abdomen without dilated loops of bowel in the field of view. Assessment and Plan - Diagnosis (1) Acute on chronic diastolic (congestive) heart failure Is this a current diagnosis for this admission?: Yes (2) [id number] renal failure Qualifiers: Acute renal failure type: unspecified Chronic kidney disease stage: stage 4 (severe) Qualified Code(s): N17.9 - Acute kidney failure, unspecified; N18.4 - Chronic kidney disease, stage 4 (severe) Is this a current diagnosis for this admission?: Yes (3) Dehydration Is this a current diagnosis for this admission?: Yes (4) Hypotension Qualifiers: Hypotension type: orthostatic hypotension Qualified Code(s): I95.1 - Orthostatic hypotension Is this a current diagnosis for this admission?: Yes (5) Leukocytosis Qualifiers: Leukocytosis type: other Qualified Code(s): D72.828 - Other elevated white blood cell count Is this a current diagnosis for this admission?: Yes (6) Physical deconditioning Is this a current diagnosis for this admission?: Yes (7) Supratherapeutic INR Is this a current diagnosis for this admission?: Yes (8) Syncope due to orthostatic hypotension Is this a current diagnosis for this admission?: Yes (10) Goals of care, counseling/discussion Is this a current diagnosis for this admission?: Yes (11) Delirium Is this a current diagnosis for this admission?: Yes - Plan Summary Summary: JJ DIOP is an 85 year old female with PMH of atrial fibrillation on w arfarin, mitral valve replacement, HLD, HTN, COPD who initially presented on 04/30 due to orthostatic syncope as a result of dehydration. She denied any recent change to her medications. She did admit to having had previous fall episodes, being generally weak and unsteady on her feet. She denied any recent illness, no cough, no diarrhea. She has had poor appetite and poor oral intake which has been ongoing for months, and she had had a dramatic decrease in her mobility and oral intake over the last 4-6 weeks prior to admission. Per her family, she had become much weaker and debilitated in general over the last few months. She was initially diagnosed with dehydration and JACINTO and admitted for IVF. She unfortunately then developed acute on chronic diastolic CHF exacerbation as a result of IVF therapy. She subsequently developed acute hypoxemic respiratory failure and received IV diuresis. During her hospital stay, she has also been treated for UTI and, subsequently, sepsis-associated hypotension of unknown etiology. Several blood and urine cultures have been performed which have shown no growth since her initial UTI, which was appropriately treated. She has been repeatedly tested for influenza/RSV/Covid, and these tests have too been negative. Despite broad-spectrum antibiotics, IVF and then diuretics, and CPAP therapy, she has continued to progressively decline throughout her h ospitalization. Today, she was noted to have worsening respiratory failure, increasing WBC, increasing lactic acid and worsening renal failure. Goals of care discussion was held with patient yesterday and with her and niece today, and decision was made to pursue comfort measures. Code Status: DNR/DNI/comfort measures only Upon her , family would like Mrs. Diop's body to be donated to [facility], as per her wishes (phone: [phone]). - Time Time Spent with patient: 35 or more minutes Anticipated Discharge Disposition: Hospice Center Anticipated Discharge Timeframe: within 24 hours
[2020-05-09] MEDS ORDERED: ASCORBIC ACID 500 MG TABLET PO SCH (18:00)
[2020-05-10] MEDS: MORPHINE SULFATE 10 MG/ML INJ IV PRN ×2 (00:38→06:56)
[2020-05-10 08:43] VITALS: BP 122/96
[2020-05-10] MEDS ORDERED: ZINC SULFATE 220 MG CAPSULE PO SCH (10:00)
--- NOTE | 2020-05-10 10:32 | Death Summary ---
Summary Date : 05/10/20 Time of :: 10:10 Autopsy: No Resuscitation Status: Comfort Measures Only - Final Diagnosis (1) Acute on chronic diastolic (congestive) heart failure Is this a current diagnosis for this admission?: Yes (2) [id number]-[id number] renal failure Is this a current diagnosis for this admission?: Yes (3) Dehydration Is this a current diagnosis for this admission?: Yes (4) Hypotension Is this a current diagnosis for this admission?: Yes (5) Leukocytosis Is this a current diagnosis for this admission?: Yes (6) Physical deconditioning Is this a current diagnosis for this admission?: Yes (7) Supratherapeutic INR Is this a current diagnosis for this admission?: Yes (8) Syncope due to orthostatic hypotension Is this a current diagnosis for this admission?: Yes (9) Sepsis associated hypotension Is this a current diagnosis for this admission?: Yes (10) Goals of care, counseling/discussion Is this a current diagnosis for this admission?: Yes (11) Delirium Is this a current diagnosis for this admission?: Yes Hospital Course:: Mrs. JJ MCKEON is an 85 year old female with PMH of atrial fibrillation on warfarin, mitral valve replacement, HLD, HTN, COPD, CHF who initially presented on 04/30 due to orthostatic syncope as a result of dehydration. She denied any recent change to her medications. She did admit to having had previo us fall episodes, being generally weak and unsteady on her feet. She denied any recent illness, no cough, no diarrhea. She has had poor appetite and poor oral intake which has been ongoing for months, and she had had a dramatic decrease in her mobility and oral intake over the last 4-6 weeks prior to admission. Per her family, she had become much weaker and debilitated in general over the last few months. She was initially diagnosed with dehydration and JACINTO and admitted for IVF. She unfortunately then developed acute on chronic diastolic CHF exacerbation as a result of IVF therapy. She subsequently developed acute hypoxemic respiratory failure and received IV diuresis. During her hospital stay, she has also been treated for UTI and, subsequently, sepsis-associated hypotension of unknown etiology. Several blood and urine cultures have been performed which have shown no growth since her initial UTI, which was appropriately treated. She has been repeatedly tested for influenza/RSV/Covid, and these tests have too been negative. Despite broad-spectrum antibiotics, IVF and then diuretics, and CPAP therapy, she has continued to progressively decline throughout her hospitalization. Yesterday, she was noted to have worsening respiratory failure, increasing WBC, increasing lactic acidosis and worsening renal failure. Goals of care discussion was held with family, and decision was made to pursue comfort measures. She peacefully on 05/10/2020 at 10:10 AM. examination completed.
== END 2020-05-10 11:30 | DRG 682 ==
LOC: ER 11:14 → EH 16:57 → OBSVTOIN 16:57 → 4S 20:07
PROVIDERS: ADMIT Internal Medicine; ATTEND Hospitalist
PROC: 5A09457 Assistance with Respiratory Ventilation, 24-96 Consecutive Hours, Continuous Positive Airway Pressure (ICD-10-PCS; principal; 2020-05-07)
DX: N17.9 Acute kidney failure, unspecified (principal); A41.9 Sepsis, unspecified organism; R65.21 Severe sepsis with septic shock; I50.33 Acute on chronic diastolic (congestive) heart failure; J96.01 Acute respiratory failure with hypoxia; J96.02 Acute respiratory failure with hypercapnia; J18.9 Pneumonia, unspecified organism; N39.0 Urinary tract infection, site not specified; J44.1 Chronic obstructive pulmonary disease with (acute) exacerbation; J44.0 Chronic obstructive pulmonary disease with (acute) lower respiratory infection; E86.0 Dehydration; Z20.828 Contact with and (suspected) exposure to other viral communicable diseases; R79.1 Abnormal coagulation profile; I95.1 Orthostatic hypotension; R41.0 Disorientation, unspecified; E78.5 Hyperlipidemia, unspecified; I13.10 Hypertensive heart and chronic kidney disease without heart failure, with stage 1 through stage 4 chronic kidney disease, or unspecified chronic kidney disease; B96.20 Unspecified Escherichia coli [E. coli] as the cause of diseases classified elsewhere; K59.00 Constipation, unspecified; R33.9 Retention of urine, unspecified; N18.4 Chronic kidney disease, stage 4 (severe); I48.0 Paroxysmal atrial fibrillation; Z95.2 Presence of prosthetic heart valve; Z79.899 Other long term (current) drug therapy; Z79.01 Long term (current) use of anticoagulants
CPT/HCPCS: 36415; 36600; 70450; 71045; 74019; 74022; 74176; 80048; 80053; 80074; 81001; 82550; 82553; 82607; 82728; 82746; 82803; 83540; 83550; 83605; 83615; 83690; 83735; 84443; 84484; 85025; 85027; 85045; 85379; 85610; 85652; 86140; 87040; 87086; 87088; 87186; 93005; 93010; 93306; 94640; 94660; 96361; 96365; 99285; 0241U; C9803; J0692; J0696; J1630; J1940; J2060; J2270; J2405; J2920; J3430; J3490; J7030; J7060; S0119